=== PATIENT | male | born 1940 | race Caucasian/White ===

== ENCOUNTER 2019-10-28 10:18 | Emergency (ER) | payer MEDICARE, SELFPAY ==
--- NOTE | ~2019-10-28 | CT_ITS ---
EXAMINATION: 1. CT brain wo con, CT facial & cervical spine wo DATE: 10/28/2019 11:12 INDICATION: Fall with facial injuries TECHNIQUE: 1. Computed tomography (CT) of the head was performed without intravenous contrast. Sagittal and jone nal reconstructions were obtained. The mA was adjusted according to patient size. Iterative reconstru ction technique was employed. The dose-length product was 605 mGy-cm. 2. CT of the facial bones and maxillofacial region and cervical spine was performed without intraveno us contrast. Sagittal and coronal reconstructions were obtained. Automated exposure control and itera tive reconstruction technique were employed. The dose-length product was 328 mGy-cm. COMPARISON: None. FINDINGS: Head CT: Small left frontal scalp contusion. No calvarial fracture. No acute intracranial hemorrhage, acute in farction or abnormal extra axial fluid collection. Old lacunar infarcts at the right basal ganglia an d thalamus. Ventricles are normal and symmetric. No mass/mass effect. Maxillofacial CT: Fractures of the left and right nasal bones, mildly comminuted on the left with approximately 2 mm ri ghtward displacement on both the left and right. Soft tissue swelling about the bridge of the nose an d extending into the left preseptal soft tissues. The orbits are otherwise normal with intact appeari ng globes and no post septal inflammatory stranding. No other maxillofacial fractures identified. Mil d mucosal thickening at the bilateral ethmoid sinuses. Temporomandibular joints are normal alignment. Mastoid air cells and middle ear cavities are clear. Cervical spine: 1-2 mm anterolisthesis C7 on T1, T1 on T2 and T2 and T3. Vertebral body heights are normal. No fractu re. Mild disc height loss at C5-C6 through T2-T3. There are mild disc bulges resulting in mild centra l canal stenosis at multiple levels in the cervical spine. Multilevel moderate to severe bilateral ce rvical facet osteoarthritis with lower cervical and right-sided predominance resulting in multilevel mild neural foraminal stenosis. Cervical soft tissues are unremarkable. Visualized airway and apices of the lungs are clear. IMPRESSION: 1. 2 mm rightward displacement of right-sided an comminuted left-sided nasal bone fractures. 2. No calvarial fracture or acute intracranial process. 3. Small old lacunar infarcts at the right basal ganglia and thalamus. 4. Mild to moderate cervical spondylosis. No acute osseous abnormality. Reviewed, dictated and finalized at location B. IMPRESSION: 1. 2 mm rightward displacement of right-sided an comminuted left-sided nasal roxi ne fractures. 2. No calvarial fracture or acute intracranial process. 3. Small old lacunar infarcts at the right basal ganglia and thalamus. 4. Mild to moderate cervical spondylosis. No acute osseous abnormality.
[2019-10-28 10:27] VITALS: BP 163/81; PULSE 80; RESP 17; TEMP 36.9; O2SAT 99
--- NOTE | 2019-10-28 10:31 | ED.FALL ---
HPI - Fall General Chief Complaint: Fall Stated Complaint: FALL Time Seen by Provider: 10/28/19 10:25 Source: patient and EMS Mode of arrival: EMS Limitations: no limitations History of Present Illness HPI Narrative: 79 years old white female had a dental exam today, getting out of the office missed 1 mistake and fell forward, complaining of facial pain, denies loss of consciousness or neck pain. Patient also denies other injuries. Patient does not remember when the last time had a tetanus shot. Currently patient on aspirin. Related Data Home Medications Medication Instructions Recorded Confirmed amlodipine 5 mg PO BID 10/28/19 10/28/19 carvedilol 25 mg PO BID 10/28/19 10/28/19 glimepiride 2 mg PO DAILY 10/28/19 10/28/19 levothyroxine 100 mcg PO DAILY 10/28/19 10/28/19 pravastatin 20 mg PO DAILY 10/28/19 10/28/19 rivaroxaban [Xarelto] 20 mg PO DAILY 10/28/19 10/28/19 valsartan-hydrochlorothiazide 1 tablet PO DAILY 10/28/19 10/28/19 Allergies Allergy/AdvReac Type Severity Reaction Status Date / Time Sulfa (Sulfonamide Allergy Unknown Verified 10/28/19 10:37 Antibiotics) Review of Systems Review of Systems: Narrative: CONSTITUTIONAL: Denies fever, chills, or sweats. EYES: Denies visual changes, redness, or discharge. ENT: Denies rhinorrhea, congestion, sore throat, or otalgia. CARDIOVASCULAR: Denies chest pain, palpitations, or edema. RESPIRATORY: Denies cough or dyspnea. GASTROINTESTINAL: Denies abdominal pain, nausea, vomiting, or diarrhea. GENITOURINARY: Denies dysuria or hematuria. SKIN: Denies rash or itching. MUSCULOSKELETAL: Denies back pain, joint pain, or myalgia. NEUROLOGIC: Denies headache, numbness, or weakness. PSYCHIATRIC: Denies anxiety or depression. [facility] Past Medical History Medical History (Updated 10/28/19 @ 12:18 by Karina Curran MD) Hypertension Obesity Social History Social History (Updated 10/28/19 @ 10:44 by Karina Curran MD) Alcohol intake: never Gender identity (if verbalized by the patient): Female Exam Narrative: Exam Narrative: General appearance: Well-developed, well-nourished. C-collar on Skin: Normal color, facial contusion, and abrasion, Head: Normocephalic, nontraumatic Eyes: Clear conjunctiva ENT: Oropharynx normal, ears normal, nose normal Neck: Supple, nontender Chest and respiratory: Airway patent, no respiratory distress, no accessory muscle use Heart: Regular rate/rhythm Abdomen: Soft, nontender, no organomegaly, quiet bowel sounds Vascular: Normal peripheral pulses, normal capillary refill. Musculoskeletal: Normal range of motion, nontender back Neurologic: Alert and oriented ?3, DISTRIBUTION COLLECTION OPERATOR is normal as tested, no gross motor deficit Course Course Emergency Course: Improving Vital Signs Vital signs: Vital Signs Temperature 36.9 C 10/28/19 10:27 Pulse Rate 80 10/28/19 10:27 Respiratory Rate 17 10/28/19 10:27 Blood Pressure 163/81 H 10/28/19 10:27 Pulse Oximetry 99 10/28/19 10:27 Temperature 36.9 C 10/28/19 10:27 Pulse Rate 63 10/28/19 11:13 Respiratory Rate 18 10/28/19 11:13 Blood Pressure 179/71 H 10/28/19 11:13 Pulse Oximetry 100 10/28/19 11:13 MDM - Fall MDM Narrative Medical decision making narrative: Patient had a fall, facial contusion, no loss of consciousness, no neck pain, patient on aspirin, unknown tetanus shot. The plan to CT facial bones, tetanus shot. Further plan to follow Differential Diagnosis Differential diagnosis: Likely concussion without loss of consciousness Critical Care Time Critical Care Time Critical Care Time: No Discharge Plan Discharge Clinical Impression: Fall Qualifiers: Encounter type:
[2019-10-28 11:13] VITALS: BP 179/71; PULSE 63; RESP 18; O2SAT 100
[2019-10-28] MEDS: ACETAMINOPHEN 500 MG TABLET 1000 MG PO (11:15)
[2019-10-28] MEDS: IBUPROFEN 600 MG TABLET PO (11:15)
[2019-10-28] MEDS: TETANUS,DIPHTHERIA,AC PERTUSSIS ADULT (0.5 ML) BOOSTRIX IM (11:32)
[2019-10-28 13:09] VITALS: BP 151/65; PULSE 60; RESP 18; TEMP 36.3; O2SAT 97
== END 2019-10-28 13:10 | disposition home or self-care (01) ==
PROVIDERS: Emergency Provider Emergency Medicine; PCP Family Medicine
DX: S02.2XXA Fracture of nasal bones, initial encounter for closed fracture (principal); S00.03XA Contusion of scalp, initial encounter; I10 Essential (primary) hypertension; Z79.82 Long term (current) use of aspirin; Z79.01 Long term (current) use of anticoagulants; E66.9 Obesity, unspecified; Z68.34 Body mass index [BMI] 34.0-34.9, adult; Z23 Encounter for immunization; W10.9XXA Fall (on) (from) unspecified stairs and steps, initial encounter
CPT/HCPCS: 70450; 70486; 72125; 90471; 90715; 99284; A9270

== ENCOUNTER 2020-07-11 12:01 | Outpatient (CLI) | payer MEDICARE, SELFPAY ==
--- NOTE | ~2020-07-11 | XR_ITS ---
XR chest 2V DATE: 07/11/2020 12:20 INDICATION: Cough TECHNIQUE: PA and lateral views COMPARISON: 12/22/2007 PA and lateral views FINDINGS: Cardiomegaly. Aortic calcification and unfolding. Left-sided dual-lead pacemaker device with leads overlying right atrium and right ventricle. No hilar or mediastinal enlargement. Minimal atelectasis at the lung bases; otherwise no pulmonary infiltrate or consolidation, pleural ef fusion or pulmonary vascular congestion or pneumothorax is detected. Osteopenia. IMPRESSION: Cardiomegaly, aortic atherosclerosis Minimal atelectasis at the lung bases Reviewed, dictated and finalized at location B.
== END 2020-07-11 12:02 | disposition home or self-care (01) ==
PROVIDERS: PCP Family Medicine; Visit Provider Family Medicine
DX: R05 Cough (principal); I51.7 Cardiomegaly; I70.0 Atherosclerosis of aorta
CPT/HCPCS: 71046

== ENCOUNTER 2020-07-25 06:42 | Outpatient (RCR) | payer MEDICARE, SELFPAY ==
[2020-07-25] VITALS (9 sets, daily range): BP systolic 133–167; BP diastolic 53–67; PULSE 59–73; RESP 15–16; TEMP 36.2–36.9; O2SAT 96–100
[2020-07-25 07:42] LABS: Hematocrit 21.4 % (37.0-47.0)
[2020-07-25 07:46] LABS: Hemoglobin 5.8 g/dL (12.0-15.0)
[2020-07-25] MEDS: SODIUM CHLORIDE 0.9% IV 250 ML 30 ML IV CONT (09:15)
[2020-07-25] MEDS: FUROSEMIDE INJ 40 MG/4 ML VIAL 20 MG IV PUSH (11:34)
== END 2020-10-23 23:59 | disposition home or self-care (01) ==
LOC: ANHCPCTRAN 06:42
PROVIDERS: PCP Family Medicine; Visit Provider Family Medicine
DX: D64.9 Anemia, unspecified (principal)
CPT/HCPCS: 36415; 36430; 85014; 85018; 86850; 86900; 86901; 86920; 96374; J1940; J7050; P9016

== ENCOUNTER 2020-08-30 00:46 | Day surgery (SDC) | payer MEDICARE, SELFPAY ==
[2020-08-22 08:59] VITALS: BMI 35.1
[2020-08-30 08:17] VITALS: BP 178/74; PULSE 81; RESP 18; TEMP 36.2; O2SAT 99; BMI 35.6
[2020-08-30] MEDS: LACTATED RINGERS 1,000 ML 150 ML IV CONT (08:27)
[2020-08-30 08:30] LABS: Glucose Point of Care 110 mg/dl (65-105)
--- NOTE | 2020-08-30 08:56 | PM.HPGS ---
History of Present Illness History of Present Illness Consent: Risks, benefits, and alternatives have been discussed and questions answered. Patient agrees to proceed with procedure. Chief complaint: anemia due to GI blood loss Narrative: Carolina De Anda is a 80 year old female with been found to be anemic. Hemoglobin was 5.8. She has no gastrointestinal symptoms. She is chronically anticoagulated due to AFib Review of Systems Review of Systems: All systems reviewed & are unremarkable except as noted in HPI and below PMFSH Past Medical History Medical History A-fib Adequate anticoagulation on anticoagulant therapy Adult hypothyroidism Benign reactive hypertension Biventricular cardiac pacemaker in situ Hx of sick sinus syndrome Hypertension Mixed hyperlipidemia Obesity Osteoporosis Rheumatoid aortitis SSS (sick sinus syndrome) Type 2 diabetes mellitus with diabetic chronic kidney disease Surgical History Surgical History Status cardiac pacemaker Status post biventricular cardiac pacemaker insertion Family History Family History Mother Hypertension Patient's mother is in good health Social History Social History Social History: Smoking status: Never smoker Second hand tobacco smoke exposure: No Alcohol intake: never Alcohol use details: occassionally Substance use: never Substance use type: does not use Living arrangements: with family Gender identity (if verbalized by the patient): Female Spiritual care concerns: No Meds Home Medications and Allergies Home Medications Medication Instructions Recorded Confirmed Type glimepiride 2 mg PO DAILY 10/28/19 08/22/20 History pravastatin 20 mg PO DAILY 10/28/19 08/22/20 History rivaroxaban 20 mg tablet 20 mg PO DAILY #90 tablet 06/11/20 08/30/20 Rx amlodipine 5 mg tablet 5 mg PO DAILY #90 tablet 06/27/20 08/22/20 Rx carvedilol 25 mg tablet 25 mg PO BID #180 tablet 07/10/20 08/22/20 Rx levothyroxine 100 mcg tablet 100 mcg PO DAILY #90 tablet 07/10/20 08/22/20 Rx Allergies Allergy/AdvReac Type Severity Reaction Status Date / Time Sulfa (Sulfonamide Allergy Intermediate hives Verified 08/30/20 08:16 Antibiotics) colesevelam Allergy Mild hives Verified 08/30/20 08:16 Mygjeru-Gsk-Yqj Reductase Allergy Mild hives Verified 08/30/20 08:16 Inhibitor atorvastatin Allergy Unknown coughing Verified 08/30/20 08:16 codeine Allergy Unknown nausea and Verified 08/30/20 08:16 vomiting Vital Signs Vital Signs - 24 hr 08/30/20 08:17 Temperature 36.2 C L Pulse Rate 81 Respiratory Rate 18 Blood Pressure 178/74 H Pulse Oximetry 99 Exam Const: General: alert Orientation/consciousness: patient oriented x3 Resp: Auscultation: clear to auscultation bilaterally Cardio: Rhythm: regular rhythm GI: GI Palp: Yes Soft to palpation and No Tenderness to palpation present (GI) Neuro: General: patient oriented x3 Assessment and Plan Assessment and plan (1) Anemia: Code(s): D64.9 - Anemia, unspecified Status: Acute Assessment and Plan: EGD with possible biopsy or dilatation or cautery.Colonoscopy with possible biopsy or polypectomy or cautery or injection of substances.
--- NOTE | 2020-08-30 09:02 | WPDANESEPPF ---
Anes - Initial Pre Proc Eval Procedure: Operation Date: 08/30/20 09:30 Proposed Procedures p Esophagogastroduodenoscopy & Colonoscopy - Billy Vasquez MD Date/Time: 08/30/20 09:02 Surgeon: Billy Vasquez MD Pre Op Diagnosis: anemia due to GI blood loss Patient Data Age: 80 Gender: F Height: 1.63 m Weight: 94.2 kg Last Vital Signs Temp 97.2 F L 08/30/20 08:17 Pulse 81 08/30/20 08:17 Resp 18 08/30/20 08:17 BP 178/74 H 08/30/20 08:17 Pulse Ox 99 08/30/20 08:17 Allergies Allergy/AdvReac Type Severity Reaction Status Date / Time Sulfa (Sulfonamide Allergy Intermediate hives Verified 08/30/20 08:16 Antibiotics) colesevelam Allergy Mild hives Verified 08/30/20 08:16 Fqcqxnr-Gvo-Knj Reductase Allergy Mild hives Verified 08/30/20 08:16 Inhibitor atorvastatin Allergy Unknown coughing Verified 08/30/20 08:16 codeine Allergy Unknown nausea and Verified 08/30/20 08:16 vomiting Home Medications Medication Instructions Recorded Confirmed Type glimepiride 2 mg PO DAILY 10/28/19 08/22/20 History pravastatin 20 mg PO DAILY 10/28/19 08/22/20 History rivaroxaban 20 mg tablet 20 mg PO DAILY #90 tablet 06/11/20 08/30/20 Rx amlodipine 5 mg tablet 5 mg PO DAILY #90 tablet 06/27/20 08/22/20 Rx carvedilol 25 mg tablet 25 mg PO BID #180 tablet 07/10/20 08/22/20 Rx levothyroxine 100 mcg tablet 100 mcg PO DAILY #90 tablet 07/10/20 08/22/20 Rx Laboratory Tests 08/30/20 08:23 POC Capillary Glucose 110 mg/dl H mg/dl (65-105) Patient hx anesthesia problems: none Family hx anesthesia problems: none PMFSH Past Medical History Medical History A-fib Adequate anticoagulation on anticoagulant therapy Adult hypothyroidism Benign reactive hypertension Biventricular cardiac pacemaker in situ Hx of sick sinus syndrome Hypertension Mixed hyperlipidemia Obesity Osteoporosis Rheumatoid aortitis SSS (sick sinus syndrome) Type 2 diabetes mellitus with diabetic chronic kidney disease Surgical History Surgical History Status cardiac pacemaker Status post biventricular cardiac pacemaker insertion Family History Family History Mother Hypertension Patient's mother is in good health Social History Social History Social History: Smoking status: Never smoker Second hand tobacco smoke exposure: No Alcohol intake: never Alcohol use details: occassionally Substance use: never Substance use type: does not use Living arrangements: with family Gender identity (if verbalized by the patient): Female Spiritual care concerns: No Anes - Eval Final PreProcedure Day of Procedure 08/30/20 09:02 Patient weight: obese Heart: regular rate and rhythm Lungs: clear to auscultation Airway: Mallampati scale class III Neurological: alert and oriented Last oral intake: >/= 8 hours ASA classification: III Emergent: no Anesthetic plan: proceed Anesthesia type and monitoring: general GIVS and standard monitoring Informed Consent: The patient's anesthetic plan and its attendant risks and benefits were discussed with the patient/family/POA. Questions were solicited and answers provided to the satisfaction of the patient/family/POA.
[2020-08-30] MEDS: BENZOCAINE (*SP) 60 ML SPRAY CAN (HURRICAINE) 1 SPRAY MUCOUS MEM (09:38)
[2020-08-30 10:07] VITALS: BP 153/51; PULSE 65; RESP 21; O2SAT 94
[2020-08-30 10:17] VITALS: BP 141/56; PULSE 64; RESP 22; O2SAT 97
[2020-08-30 10:19] LABS: Glucose Point of Care 105 mg/dl (65-105)
[2020-08-30 10:27] VITALS: BP 137/66; PULSE 65; RESP 22; O2SAT 99
== END 2020-08-30 10:47 | disposition home or self-care (01) ==
PROVIDERS: PCP Family Medicine; Visit Provider Internal Medicine Gastroenterology
PROC: 0DJ08ZZ Inspection of Upper Intestinal Tract, Via Natural or Artificial Opening Endoscopic (ICD-10-PCS; CPT 43235; principal; 2020-08-30 09:30)
DX: D50.9 Iron deficiency anemia, unspecified (principal); K57.30 Diverticulosis of large intestine without perforation or abscess without bleeding; K44.9 Diaphragmatic hernia without obstruction or gangrene; K29.70 Gastritis, unspecified, without bleeding; I48.91 Unspecified atrial fibrillation; E03.9 Hypothyroidism, unspecified; Z95.0 Presence of cardiac pacemaker; E78.2 Mixed hyperlipidemia; M81.0 Age-related osteoporosis without current pathological fracture; M06.9 Rheumatoid arthritis, unspecified; I12.9 Hypertensive chronic kidney disease with stage 1 through stage 4 chronic kidney disease, or unspecified chronic kidney disease; E11.22 Type 2 diabetes mellitus with diabetic chronic kidney disease; N18.9 Chronic kidney disease, unspecified; E66.9 Obesity, unspecified; Z68.35 Body mass index [BMI] 35.0-35.9, adult; Z79.01 Long term (current) use of anticoagulants; Z79.84 Long term (current) use of oral hypoglycemic drugs
CPT/HCPCS: 45378; 43239; 82948; 87081; 88305; J2704; J7120

== ENCOUNTER 2023-05-09 15:50 | Inpatient (IN) | payer MEDICARE, SELFPAY ==
[2023-05-09] VITALS (25 sets, daily range): BP systolic 127–175; BP diastolic 43–97; PULSE 60–78; RESP 18–36; TEMP 36.4–37.2; O2SAT 93–100; BMI 34.7
--- NOTE | ~2023-05-09 | CT_ITS ---
EXAMINATION: CT abdomen pelvis wo/w con DATE: 05/09/2023 18:32 INDICATION: Gross hematuria TECHNIQUE: Computed tomography (CT) of the abdomen and pelvis was performed without and with 130 cc O mnipaque 350 intravenous contrast. The dose-length product was 2408.64 mGy-cm. Automated exposure con trol and iterative reconstruction technique were employed. COMPARISON: None. FINDINGS: There is an infiltrative left renal mass centered in the lower pole measuring 7.8 x 7.7 x 7 .2 cm, consistent with renal cell carcinoma until proven otherwise. There are low-density lesions in the right kidney, most likely benign cysts. There is cortical scarring of the kidneys bilaterally. Th ere is high density material dependently in the bladder on precontrast images, likely blood products. Tan catheter present. There is nondependent gas in the bladder lumen, consistent with instrumentat ion. Status post cholecystectomy with expected prominence of the bile ducts. The spleen, pancreas, adrenal glands are unremarkable. Nonobstructive bowel gas pattern. Colonic diverticulosis without evidence f or diverticulitis. Patchy groundglass opacities of the lower lungs may represent atelectasis or pneum onia. Severe lower thoracic and lumbar spondylosis. No focal lytic or blastic lesions. There is ather osclerosis of the aorta without aneurysm. No lymphadenopathy. IMPRESSION: 1. Complex 7.8 cm left renal mass, consistent with renal cell carcinoma until proven otherwise. 2: High density material in the bladder lumen precontrast, consistent with blood products. 3: Patchy groundglass opacities in the lower lungs which may reflect atelectasis or pneumonia. Reviewed, dictated and finalized at location A. IMPRESSION: 1. Complex 7.8 cm left renal mass, consistent with renal cell carcinoma until p roven otherwise. 2: High density material in the bladder lumen precontrast, consistent with bloo d products. 3: Patchy groundglass opacities in the lower lungs which may reflect atelectas is or pneumonia.
--- NOTE | ~2023-05-09 | XR_ITS ---
EXAMINATION: XR chest 2V DATE: 05/09/2023 16:44 INDICATION: Weakness TECHNIQUE: PA and lateral views of the chest were obtained. COMPARISON: Chest radiograph dated 07/11/2020 FINDINGS: Cardiomegaly with pulmonary vascular congestion and increased perihilar interstitial pattern suggesti ve of congestive heart failure with mild pulmonary edema. Unchanged mild linear discoid atelectasis/s carring at the left lung base. No pleural effusion or pneumothorax. Dual lead pacemaker seen with villa ds projecting over the expected locations of the right atrium and right ventricle. Mild thoracic kyph osis with chronic minimal to mild anterior wedging of a few mid to lower thoracic vertebral bodies. M oderate thoracic spondylosis. IMPRESSION: 1. Likely congestive heart failure with cardiomegaly, pulmonary vascular congestion and mild perihila r edema. Reviewed, dictated and finalized at location B. IMPRESSION: 1. Likely congestive heart failure with cardiomegaly, pulmonary vascular conges tion and mild perihilar edema.
--- NOTE | ~2023-05-09 | CT_ITS ---
EXAMINATION: CT diagnostic chest wo con DATE: 05/11/2023 17:05 INDICATION: BLE swelling, metastassi rule out TECHNIQUE: Computed tomography (CT) of the chest was performed with 100 mL Omnipaque-350 intravenous contrast. Automated exposure control and iterative reconstruction technique were employed. The dose-l ength product was 391.71 mGy-cm. COMPARISON: None. FINDINGS: CHEST: Thoracic aorta: No significant dilation. Mild arch calcification. Lung parenchyma and airways: Bibasilar scar and dependent atelectasis. Patent airways. Right lower lo be pneumatocele. Scattered calcified granulomas. Thoracic inlet, axillae and chest wall: No thyroid or soft tissue mass. No axillary lymphadenopathy. Left chest pacer, leads in good position. Mediastinum: No lymphadenopathy. Dilated central pulmonary veins as can be seen with pulmonary arteri al hypertension. Small hiatal hernia. Heart and pericardium: Cardiomegaly. Aortic valve calcification. No pericardial effusion. Coronary artery calcifications: Absent. Pleura: No effusion or mass. Upper abdomen: No significant finding. Thoracic bones: No acute osseous finding in the chest. IMPRESSION: No acute thoracic process detected. No CT evidence of metastatic disease in the chest. Reviewed, dictated and finalized at location K.
--- NOTE | 2023-05-09 15:57 | ECG_ITS ---
Measurements Intervals [place] Rate: 66 P: 140 AK: 182 QRS: 0 QRSD: 106 T: 34 QT: 404 QTc: 424 Interpretive Statements ELECTRONIC ATRIAL PACEMAKER LEFT VENTRICULAR HYPERTROPHY WITH ST-T CHANGE MINIMAL Q WAVES- HIGH LATERAL LEADS CANNOT RULE OUT SEPTAL INFARCT, AGE INDETERMINATE BASELINE ARTIFACT- I, II, III, AVR, AVL, AVF, V2, V4-V6 ABNORMAL ECG NO PREVIOUS ECG AVAILABLE FOR COMPARISON Electronically Signed On 05-09-2023 16:40:41 CDT by Ambrosio Villarreal D.O.
[2023-05-09 16:56] LABS: Basophils Percent Auto 0.4 % (0.2-1.2); Eosinophils Absolute Auto 0.1 K/mm3 (0-0.3); Eosinophils Percent Auto 0.7 % (0-4.4); Hematocrit 49.3 % (37.0-47.0); Hemoglobin 14.2 g/dL (12.0-15.0); Immature Granulocyte Absolute 0.03 K/mm3 (0.00-0.031); Immature Granulocyte Percent A 0.4 % (0-0.5); Lymphocytes Absolute Auto 0.48 K/mm3 (0.9-3.2); Lymphocytes Percent Auto 5.8 % (18.3-44.2); Mean Corpuscular HGB Conc 28.8 g/dl (32-36); Mean Platelet Volume 9.8 fl (7.4-10.4); Monocytes Percent Auto 0.4 % (2.6-8.5); Neutrophils Absolute Auto 7.7 K/mm3 (1.3-6.7); Neutrophils Percent Auto 92.3 % (45.5-73.1); Platelet Count Result 240 k/mm3 (150-375); Red Blood Count 5.08 M/mm3 (4.2-5.4); Red Cell Distribution Width 14.7 % (11.5-14.5); White Blood Count 8.3 K/mm3 (4.5-10.0)
--- NOTE | 2023-05-09 16:57 | ED.WEAKNESS ---
HPI - Weakness General Chief complaint: Weakness Stated complaint: weakness, chills Time Seen by Provider: 05/09/23 15:58 History of Present Illness HPI Narrative: Patient states she woke up today and felt very tired with lack of energy, she has no nausea or vomiting or abdominal pain, has been having some chills, minimal shortness of breath. Related Data Allergies Allergy/AdvReac Type Severity Reaction Status Date / Time Sulfa (Sulfonamide Allergy Intermediate hives Verified 02/07/23 08:52 Antibiotics) colesevelam Allergy Mild hives Verified 02/07/23 08:52 Hqjcnvm-XBJ-KnE Reductase Allergy Mild hives Verified 02/07/23 08:52 Inhibitor [Qhttctd-Ihh-Wko Reductase Inhibitor] atorvastatin Allergy Unknown coughing Verified 02/07/23 08:52 codeine Allergy Unknown nausea and Verified 02/07/23 08:52 vomiting Review of Systems Review of Systems: CONST: fatigue HEENT: No sore throat C/V: No chest pain RESP: No cough GI: No abdominal pain, nausea, vomiting[, diarrhea] : No dysuria. M/S: lower extremity swelling SKIN: No rash. NEURO: [No focal numbness or weakness] PSYCH: [No depression] [facility] Past Medical History Medical History (Updated 05/09/23 @ 20:57 by Samra Bergeron MD) A-fib Adequate anticoagulation on anticoagulant therapy Adult BMI 36.0-36.9 kg/sq m Adult hypothyroidism Anemia Benign reactive hypertension Biventricular cardiac pacemaker in situ Cough Hx of sick sinus syndrome Hypertension Mixed hyperlipidemia Obesity Osteoporosis Osteoporosis SSS (sick sinus syndrome) SSS (sick sinus syndrome) Transfusion history Trochanteric bursitis Type 2 diabetes mellitus with diabetic chronic kidney disease Surgical History Surgical History Status cardiac pacemaker Status post biventricular cardiac pacemaker insertion Family History Family History Mother Hypertension Patient's mother is in good health Social History Social History (Updated 02/07/23 @ 08:53 by Summer Nicholas) Social History: Smoking status: Never smoker Second hand tobacco smoke exposure: No Alcohol intake: current Alcohol use details: occassionally Substance use: never Substance use type: does not use Do You Feel Safe in your Home?: Yes Lack of Transportation: No Lack of Food: Never True Current Housing: I Have Housing Concerned About Future Housing: No Difficulty Paying Gas/Electric Bills: No Difficulty Paying for Meds: No Currently Unemployed: YES Education: Decline to Answer Difficulty w/ Childcare or Family Care: No Living arrangements: with family Occupation/Education: retired Gender identity (if verbalized by the patient): Female Sexual Orientation (if Verbalized by the Patient): Straight or Heterosexual Spiritual care concerns: No Exam Narrative: EXAMINATION OF ORGAN SYSTEMS/BODY AREAS: Constitutional: Vital signs per nursing GENERAL:[No acute distress, non-toxic appearing.] HEAD: Normal with no signs of head trauma. EYES: EOMI, conjunctiva normal ENT: Hearing grossly intact LUNGS: Nonlabored breathing. HEART: [Regular rate and rhythm] ABD: [Soft], [nontender to palpation] EXT: bilateral lower extremity swelling with pitting edema SKIN: [No rashes or lesions.] NEURO: [Alert and oriented x 3. No gross focal sensory or strength deficits.] PSYCH: Normal affect Course Vital Signs Vital signs: Vital Signs Temperature 99 F 05/09/23 15:58 Pulse Rate 61 05/09/23 15:58 Respiratory Rate 20 05/09/23 15:58 Blood Pressure 175/48 H 05/09/23 15:58 Pulse Oximetry 93 05/09/23 15:58 Oxygen Delivery Room Air 05/09/23 15:58 Temperature 99 F 05/09/23 15:58 Pulse Rate 63 05/09/23 20:08 Respiratory Rate 36 H 05/09/23 19:47 Blood Pressure 162/97 H 05/09/23 19:32 Pulse Oximetry 99 05/09/23 19:47
[2023-05-09 17:10] LABS: Platelet Estimate Adequate (Adequate)
[2023-05-09 17:11] LABS: Anisocytosis 1+; Atypical Lymphocytes Present; Hypochromasia 1+; Ovalocytes 1+; Schistocytes None Seen
[2023-05-09 17:52] LABS: Color Urine Red (Yellow)
[2023-05-09 17:53] LABS: Appearance Urine Turbid (Clear); pH Urine 6.5 (5.0-9.0)
[2023-05-09 17:54] LABS: Glucose Urine UA Negative (Negative)
[2023-05-09 17:55] LABS: Blood Urine 3+ (Negative); Ketones Urine Negative (Negative)
[2023-05-09] MEDS: FUROSEMIDE INJ 40 MG/4 ML VIAL IV PUSH ×2 (17:55→19:23)
[2023-05-09 17:56] LABS: Leukocyte Esterase Ur Negative LEU/UL (Negative)
[2023-05-09 17:57] LABS: Add Urine Microscopic? YES; Protein Urine 3+ mg/dL (Negative); RBC Urine >100 /hpf (0-2); Squamous Epithelial Cell Urine None seen /hpf (Few)
[2023-05-09 17:58] LABS: Bacteria Urine Trace /hpf
[2023-05-09 18:14] LABS: Estimated CRCL calculation 34 ml/min; Estimated Glomerular Filt Rate 39
[2023-05-09 18:54] LABS: Alanine Aminotransferase 9 U/L (6-35); Albumin Level 4.1 g/dL (3.5-5.1); Alkaline Phosphatase 88 U/L (38-126); Anion Gap 6 mmol/L (8-16); Aspartate Amino Transferase 24 U/L (14-36); Bilirubin,Total 0.7 mg/dL (0.2-1.3); Blood Urea Nitrogen 26 mg/dL (7-17); Calcium 9.7 mg/dL (8.4-10.2); Carbon Dioxide 25 mmol/L (22-30); Chloride 109 mmol/L (98-107); Estimated CRCL calculation 40 ml/min; Estimated Glomerular Filt Rate 48; Glucose 83 mg/dL (65-110); Potassium 3.9 mmol/L (3.4-5.0); Sodium 140 mmol/L (137-145)
[2023-05-09 19:07] LABS: NT Pro B Type Natriuretic Pept 645 pg/mL (19.9-100)
[2023-05-09] MEDS: ALBUTEROL SULFATE NEB 2.5 MG/3 ML INH 15 MG INHALATION (19:30)
[2023-05-09] MEDS: IPRATROPIUM BR 0.02% INH SOLN 0.5 MG/2.5 ML VIAL 1 MG INHALATION (19:30)
--- NOTE | 2023-05-09 19:30 | PC.NURSE ---
Assumed care of pt. Claire RN gave bedside report. States pt suddenly became tachypnic and c/o sob after coming back from CT scan. RR 30-40s. CBI not draining at this time. Pt placed on 3L for sats 72%. Sats increased to 99%. Pt now tachypnic 30, but states feels better. Dr Calzada notified and to bedside. Pt's CBI irrigated and now flowing.
--- NOTE | 2023-05-09 19:45 | PC.NURSE ---
Pt now tachypnic 27. Improved from before. Lasix repeated per ERP. RT notified to give hour long neb. Pt appears more comfortable at this time.
--- NOTE | 2023-05-09 20:01 | PM.IMHP ---
H&P: HPI History of Present Illness Date/Time: 05/09/23 20:01 Chief Complaint: Increased weakness Narrative: Source of information from limited past medical records and the patient's 's report. The patient's and the patient herself for poor historians. The states that his does not share her medical issues with him and currently the patient is only oriented to person and place. 82-year-old female with a past medical history of restrictive lung disease, rheumatoid arthritis, sick sinus syndrome status post dual chamber pacemaker, essential hypertension, CHF, chronic anticoagulation, type 2 diabetes mellitus and CVA who presented to the ER via private vehicle due to increased weakness. The patient's states the patient was significantly more weak today and did not seem herself. He felt that she was confused which was a new change for her. He stated she did not want to come to the hospital and he had a convince her to come. He called EMS who evaluated the patient and told him that he could bring her in via private vehicle or they could take her by ambulance in the opted to go by private vehicle. The patient reported having some chills to the ER provider. She seemed tachypneic and when question the patient admitted she could may be slightly short of breath. After she was laid down to have her CT scan of the abdomen and pelvis patient became acutely decompensated and was tachypneic with respiratory rate between 30 and 40 and significantly hypoxic. The patient's reports that the patient has been sleeping in a recliner for the last several months. CT was performed due to patient having gross hematuria noted when nursing staff straight catheterization the patient. CT demonstrated complex 7.8 cm left renal mass consistent with renal cell carcinoma and high-density material in the bladder consistent with blood products as well as ground-glass opacities in lower lungs with chest x-ray also demonstrating cardiomegaly with likely pulmonary edema. In the ER patient received 2 doses of IV Lasix 40 mg and a nebulizer treatment. Patient's respiratory status did not seem to improve after respiratory treatment. Initially in the ER patient was markedly hypertensive but improved after diuretic therapy. After diuretic therapy the patient was able to be weaned down to room air. Patient was prescribed Lasix by her primary care provider but admitted to nursing staff that she had not been taking the Lasix. She is on chronic anticoagulation with Xarelto. Review of Systems Review of Systems: ROS unobtainable: Yes unobtainable due to mental status [facility] Past Medical History Medical History (Updated 05/10/23 @ 05:02 by Sabi Lamb DO) Adult hypothyroidism Anemia Benign reactive hypertension CKD (chronic kidney disease) stage 3, GFR 30-59 ml/min Hypertension Mixed hyperlipidemia Obesity Osteoporosis Paroxysmal atrial fibrillation Restrictive lung disease Mild restrictive lung disease noted on PFTs 2009 Rheumatoid arthritis SSS (sick sinus syndrome) Transfusion history Trochanteric bursitis Type 2 diabetes mellitus with diabetic chronic kidney disease Vitamin D deficiency Surgical History Surgical History (Updated 05/10/23 @ 02:30 by Sabi Lamb DO) Biventricular cardiac pacemaker in situ (2007) With generator exchange in 2018 Status post biventricular cardiac pacemaker insertion Family History Family History Mother Hypertension Heart problem Father Unknown family medical history Sibling Myocardial infarct Sibling Unknown family medical history Social History Social History (Updated 05/10/23 @ 04:59 by Sabi Lamb DO) Social History: Patient lives with her of almost 60 years. Her reports that they raised 2 children. She is a lifelong nonsmoker and only on rare occasion she will have a glass of wine. She does
[2023-05-09 20:32] LABS: Alveolar/Arterial O2 Gradient 285.5 mmHg; Fractional Inspired Oxygen 60 %; HCO3 ABG 22.2 mEq/l (22.0-26.0); Oxygen Content ABG 18.8 %vol (16.0-22.0); Oxygen Saturation ABG 97.7 % (95.0-100.0); Oxyhemoglobin 96.5 % THb (90.0-100.0); PCO2 ABG 36.4 mmHg (35.0-45.0); PO2 ABG 102.3 mmHg (80.0-100.0); PO2 FiO2 Ratio Arterial Blood 1.71 %; Total Hemoglobin 13.8 g/dL (12.0-18.0); pH ABG 7.404 (7.350-7.450)
[2023-05-09 20:33] LABS: Modified Allen's Test Pass; Site Drawn RIGHT RADIAL
[2023-05-09 20:34] LABS: Device OTHER DEVICE
[2023-05-09 20:45] LABS: Influenza A QL RT-PCR Negative (Negative); Influenza B QL RT-PCR Negative (Negative); RSV RNA, RT-PCR Negative (Negative); SARS-CoV-2 RNA PCR Negative (Negative)
[2023-05-09] MEDS: AZITHROMYCIN 500 MG/NS 250 ML 500 MG/250 ML BAG 250 MG IVPB (21:14)
--- NOTE | 2023-05-09 21:46 | PC.NURSE ---
Pt appears much more comforable at this time. Resp 25, occasionally sleeping, but arousable to voice. remains at bedside.
--- NOTE | 2023-05-09 23:13 | ADMGEN ---
This patient, Carolina De Anda, was admitted to IMU Room 212-01 on 05/09/23 at 2250. Patient/family oriented to hospital policies and general routines including ID bracelet, bed and alarms, visiting hours, pain management, procedures, bathroom and other care routines, personal items, smoking policy, room service/diet, and visiting hours. Information on how to activate the Rapid Response Team has been discussed. Patient/Family are encouraged to report perceived risks to care and to ask questions if they do not understand what they are told or what they should do.
[2023-05-09 23:24] LABS: MRSA (PCR) NOT DETECTED (NOT DETECTE)
[2023-05-10] VITALS (24 sets, daily range): BP systolic 115–149; BP diastolic 44–67; PULSE 60–102; RESP 18–22; TEMP 36.2–36.8; O2SAT 94–98
--- NOTE | 2023-05-10 | ECHO_ITS ---
Patient Info Name: Carolina De Anda Age: 82 years : 1940 Gender: Female Ht: 65 in Wt: 208 lbs BSA: 2.12 m2 HR: 62 bpm BP: 149 / 50 mmHg Heart Rhythm: Paced Technical Quality: Good Exam Date: 05/10/2023 8:40 AM Exam Location: Echo Lab Patient Status: Outpatient Admit Date: 05/09/2023 Staff Ordering Physician: Sabi Lamb DO Reverse Engineer: Chan Daily RDCS Attending Provider: Sabi Lamb DO Referring Physician: Adonis BROUSSARD; Exam Type: CA echo doppler color flow Study Info Indications - ACUTE REPIRATORY FAILURE Complete two-dimensional, color flow and Doppler transthoracic echocardiogram is performed. Summary 1. Complete two-dimensional, color flow and Doppler transthoracic echocardiogram is performed. 2. Left ventricular hypertrophy with normal size and normal systolic function. 3. Grade 1 diastolic noncompliance. 4. Dilated left atrium. 5. Pacemaker leads identified. 6. No significant valvular dysfunction. Left Ventricle Left ventricular chamber dimension is normal. Left ventricular systolic function is normal, estimated at 60-65%. There is mild concentric increased left ventricular wall thickness. The left ventricular diastolic function is grade I diastolic dysfunction. Right Ventricle Right ventricular chamber dimension is normal. Linear artifact in right ventricle suggestive of catheter(s), pacemaker lead(s), or ICD lead(s). Left Atria Left atrial chamber dimension is mildly enlarged. Right Atria Right atrial chamber dimension is normal. Linear artifact in the right atrium suggestive of catheter(s), pacemaker lead(s), or ICD lead(s). Aortic Valve The aortic valve is trileaflet. There is mild aortic valve sclerosis. Pulmonic Valve The pulmonic valve is not well visualized. Mitral Valve The mitral valve has normal leaflets. The mitral valve annulus is mildly calcified. Tricuspid Valve The tricuspid valve leaflets are normal. Pericardium/Pleural The pericardium appears normal. Aorta The aortic root size at the sinus of Valsalva is normal. Left Ventricular Outflow Tract Name Value Normal LVOT 2D LVOT Diameter 2.1 cm LVOT Doppler LVOT Peak Gradient 8 mmHg LVOT Mean Gradient 5 mmHg LVOT VTI 33 cm LVOT VTI/AV VTI Ratio 0.7 LVOT Stroke Volume 117 ml LVOT CO 6.5 l/min LVOT CI 3.1 l/min/m2 Pulmonic Valve Name Value Normal RVOT Doppler RVOT Peak Gradient 1 mmHg PV Doppler PV Peak Gradient 7 mmHg Mitral Valve Name Value Normal
[2023-05-10 03:17] LABS: Troponin I 0.068 ng/mL (0.000-0.034)
[2023-05-10 05:17] LABS: Hematocrit 41.4 % (37.0-47.0); Hemoglobin 12.7 g/dL (12.0-15.0); Mean Corpuscular HGB Conc 30.7 g/dl (32-36); Mean Corpuscular Hemoglobin 28.3 pg (26-34); Mean Corpuscular Volume 92.2 fl (80-100); Platelet Count Result 202 k/mm3 (150-375); Red Blood Count 4.49 M/mm3 (4.2-5.4); Red Cell Distribution Width 14.8 % (11.5-14.5); White Blood Count 34.6 K/mm3 (4.5-10.0)
[2023-05-10 05:24] LABS: Prothrombin Time 24.1 Seconds (11.1-14.7)
[2023-05-10 05:25] LABS: Anion Gap 11 mmol/L (8-16); Blood Urea Nitrogen 27 mg/dL (7-17); Calcium 8.9 mg/dL (8.4-10.2); Carbon Dioxide 22 mmol/L (22-30); Chloride 106 mmol/L (98-107); Estimated CRCL calculation 29 ml/min; Estimated Glomerular Filt Rate 31; Glucose 104 mg/dL (65-110); Partial Thromboplastin Time 38.9 Seconds (22.3-36.8); Potassium 3.1 mmol/L (3.4-5.0); Sodium 139 mmol/L (137-145)
[2023-05-10 05:37] LABS: Troponin I 0.071 ng/mL (0.000-0.034)
[2023-05-10 05:53] LABS: Band Neutrophils Percent 9 % (0-6); Lymphocytes Absolute Manual 0.69 K/mm3 (1.1-4.5); Monocytes Absolute Manual 0.69 K/mm3 (0.1-0.90); Monocytes Percent Manual 2 % (3-9); Neutrophils Absolute Manual 33.21 K/mm3 (1.7-7.2); Neutrophils Percent Manual 87 % (46-73); Platelet Estimate Slightly Decreased (Adequate); Total Cells Counted 100
[2023-05-10 05:54] LABS: Schistocytes None Seen
[2023-05-10] MEDS: LEVOTHYROXINE SODIUM 100 MCG TABLET PO (06:25)
[2023-05-10 07:52] LABS: Glucose Point of Care 102 mg/dl (65-105)
[2023-05-10 08:53] LABS: Troponin I 0.079 ng/mL (0.000-0.034)
[2023-05-10] MEDS: FUROSEMIDE INJ 40 MG/4 ML VIAL IV PUSH (09:41)
[2023-05-10] MEDS: PRAVASTATIN SODIUM 20 MG TABLET PO (09:41)
[2023-05-10] MEDS: carvediloL 25 MG TABLET PO ×2 (09:41→20:30)
[2023-05-10] MEDS: amLODIPine BESYLATE 5 MG TABLET PO (09:42)
--- NOTE | 2023-05-10 10:38 | PM.CNCAR ---
Assessment and Plan Assessment and plan (1) Elevated troponin: Code(s): R79.89 - Other specified abnormal findings of blood chemistry Status: Acute (2) Status cardiac pacemaker: Code(s): Z95.0 - Presence of cardiac pacemaker Status: Acute Plan This is an 82-year-old lady with a longstanding history of sick sinus syndrome who has a chronically implanted dual-chamber pacemaker which appears to be functioning well it, it has not been checked in about a year and half as she has been failing follow-up in the office. She is nonetheless hospitalized now with generalized weakness she does have some hypoxemia and chest x-ray evidence of some a pulmonary congestion. She has no previous history of heart failure. 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 Obviously Xarelto need to be stopped and that is appropriate. I will review her echocardiogram after that is done today. For the time being furosemide is appropriate for her pulmonary congestion that is noted on her chest x-ray. Despite all of this she is really not reporting shortnes of breath as 1 of her chief complaint. Will follow with you and obviously she may be requiring significant surgery after the urology consult takes place Jeferson Spivey MD [facility] History of Present Illness History of Present Illness Consult date/time: 05/10/23 10:38 Reason For Visit: renal cell; hematuria, AMS; CHF exac. Narrative: This is a 82-year-old woman who I know with a history of sick sinus syndrome with the chronically implanted pacemaker 0 I am seeing at the request of the hospitalist today. The reason for consult request is elevated troponin. She is not known to have coronary artery disease and came to this hospital yesterday being brought in by her /family because of significant generalized weakness. She also has been having some gross hematuria and it is unclear from talking to her how long it has been going on she has a very hard time providing a any historical details about any of this. She was not reporting any symptoms of chest pain shortness of breath orthopnea or PND. She was hypoxemic on arrival in the emergency room was placed on some oxygen. Her chest x-ray was interpreted as showing findings suspicious for CHF and she was given some IV furosemide. Her says she looks and feels better today. In the emergency department apparently because of some abdominal discomfort she had a CT done which demonstrated a fairly large complex 7 cm left renal mass that is consistent with in appearance with a hypernephroma. Urology consult has been placed and is pending. She has continuous bladder irrigation going on now. Cardiac lambert again this lady has a history of symptomatic bradycardia with sick sinus syndrome for that she follows in my office since 2007. She received a [employer] dual-chamber pacemaker at that time. She received a generator change as the battery was at end of service back in 2018. About a year and a half ago she failed follow-up with me in the office and has been not seen since then. Her pacemaker has not been checked since then either. On telemetry it appears to be functioning normally as she is an in an atrially paced rhythm. Review of Systems Constitutional: Constitutional: Reports lethargy Eyes: Eyes: Reports no additional eye complaints ENT: Reports system reviewed and no additional complaints, except as documented Cardiovascular: Cardiovascular: Reports no additional cardiovascular complaints Respiratory: Respiratory: Reports no additional respiratory complaints Gastrointestinal: Gastrointestinal: Reports abdominal pain Genitourinary: Genitourinary: Reports hematuria Musculoskeletal: Musculoskeletal: Reports no additional musculoskeletal complaints Integumentary/Breasts: Skin/Breast: Reports system reviewed and no additional complaints, except as docu Neurologic: Reports s
--- NOTE | 2023-05-10 11:42 | P.PNIM_ITS ---
Progress Note: A&P Assessment and Plan (1) Gross hematuria: Code(s): R31.0 - Gross hematuria Status: Acute Assessment and Plan: patient found to have gross hematuria. Patient has known about this but is unsure about how long this has been going on. * Patient placed on CBI. * Urology consulted * Xarelto on hold. * Suspected cause of it being the 8 cm left renal mass. (2) Renal cell carcinoma: Qualifiers: Laterality: left Qualified Code(s): C64.2 - Malignant neoplasm of left kidney, except renal pelvis Code(s): C64.9 - Malignant neoplasm of unspecified kidney, except renal pelvis Status: Acute Assessment and Plan: patient found to have a 8 cm renal mass on the left kidney on CT abdomen pelvis. No metastases noted on CT of the abdomen. * Urology recommending follow-up chest CT to evaluate for metastases. * Urology discussed options, outcomes and what to expect with the patient. * Plan to follow-up with Dr. Palmer an outpatient. (3) Acute exacerbation of congestive heart failure: Qualifiers: Heart failure type: unspecified Qualified Code(s): I50.9 - Heart failure, unspecified Code(s): I50.9 - Heart failure, unspecified Status: Acute Assessment and Plan: Patient has acute hypoxic respiratory failure likely due to decompensated heart failure. * Will order echocardiogram to further evaluate cardiac structure and function. * Lasix IV 40 mg daily. * It is difficult to assess strict I&O's given the patient is on continuous bladder irrigation. * 1.5 L fluid restricted diet. * Will wean oxygen as tolerated patient is currently down to 1 L nasal cannula. * Cardiology consulted. (4) Acute hypoxic respiratory failure: Code(s): J96.01 - Acute respiratory failure with hypoxia Status: Acute Assessment and Plan: * Likely due to acute heart failure exacerbation. * Requiring 1 L O2 currently. (5) Elevated troponin: Code(s): R79.89 - Other specified abnormal findings of blood chemistry Status: Acute Assessment and Plan: The patient does have a elevated troponin. * Trop: 0.068, 0.071, 0.073 * Not actively having chest pain. * Echocardiogram ordered. * Cardiology consulted. (6) CKD (chronic kidney disease) stage 3, GFR 30-59 ml/min: Qualifiers: Chronic kidney disease stage 3 subtype: stage 3a (GFR 45-59) Qualified Code(s): N18.31 - Chronic kidney disease, stage 3a Code(s): N18.30 - Chronic kidney disease, stage 3 unspecified Status: Acute Assessment and Plan: * BUN and Cr slightly above her normal. * Continue to monitor. (7) Essential hypertension: Code(s): I10 - Essential (primary) hypertension Status: Acute Assessment and Plan: * Continue home medications. Subjective Date/time seen: 05/10/23 11:42 Interval history: Patient is a very poor historian. at beside. patient states that she is hematuria for quite some time but is unable to quantify how long it is on. Patient denies shortness of breath or chest pain. She does appear intermittently confused. When asking her orientation questions patient's answered mg for her. She states she takes her medications as prescribed but due to her memory problems unsure if this is accurate. Patient does have elevated troponin and what appears to be new CHF onset. Cardiology consulted
--- NOTE | 2023-05-10 11:42 | PM.IMPN ---
Progress Note: A&P Assessment and Plan (1) Gross hematuria: Code(s): R31.0 - Gross hematuria Status: Acute Assessment and Plan: patient found to have gross hematuria. Patient has known about this but is unsure about how long this has been going on. Patient placed on CBI. Urology consulted Jessica on hold. Suspected cause of it being the 8 cm left renal mass. (2) Renal cell carcinoma: Qualifiers: Laterality: left Qualified Code(s): C64.2 - Malignant neoplasm of left kidney, except renal pelvis Code(s): C64.9 - Malignant neoplasm of unspecified kidney, except renal pelvis Status: Acute Assessment and Plan: patient found to have a 8 cm renal mass on the left kidney on CT abdomen pelvis. No metastases noted on CT of the abdomen. Urology recommending follow-up chest CT to evaluate for metastases. Urology discussed options, outcomes and what to expect with the patient. Plan to follow-up with Dr. Palmer an outpatient. (3) Acute exacerbation of congestive heart failure: Qualifiers: Heart failure type: unspecified Qualified Code(s): I50.9 - Heart failure, unspecified Code(s): I50.9 - Heart failure, unspecified Status: Acute Assessment and Plan: Patient has acute hypoxic respiratory failure likely due to decompensated heart failure. Will order echocardiogram to further evaluate cardiac structure and function. Lasix IV 40 mg daily. It is difficult to assess strict I&O's given the patient is on continuous bladder irrigation. 1.5 L fluid restricted diet. Will wean oxygen as tolerated patient is currently down to 1 L nasal cannula. Cardiology consulted. (4) Acute hypoxic respiratory failure: Code(s): J96.01 - Acute respiratory failure with hypoxia Status: Acute Assessment and Plan: Likely due to acute heart failure exacerbation. Requiring 1 L O2 currently. (5) Elevated troponin: Code(s): R79.89 - Other specified abnormal findings of blood chemistry Status: Acute Assessment and Plan: The patient does have a elevated troponin. Trop: 0.068, 0.071, 0.073 Not actively having chest pain. Echocardiogram ordered. Cardiology consulted. (6) CKD (chronic kidney disease) stage 3, GFR 30-59 ml/min: Qualifiers: Chronic kidney disease stage 3 subtype: stage 3a (GFR 45-59) Qualified Code(s): N18.31 - Chronic kidney disease, stage 3a Code(s): N18.30 - Chronic kidney disease, stage 3 unspecified Status: Acute Assessment and Plan: BUN and Cr slightly above her normal. Continue to monitor. (7) Essential hypertension: Code(s): I10 - Essential (primary) hypertension Status: Acute Assessment and Plan: Continue home medications. Subjective Date/time seen: 05/10/23 11:42 Interval history: Patient is a very poor historian. at beside. patient states that she is hematuria for quite some time but is unable to quantify how long it is on. Patient denies shortness of breath or chest pain. She does appear intermittently confused. When asking her orientation questions patient's answered mg for her. She states she takes her medications as prescribed but due to her memory problems unsure if this is accurate. Patient does have elevated troponin and what appears to be new CHF onset. Cardiology consulted patient appreciate recommendations. Patient also found to have a renal mass which is thought to be the cause of her hematuria. Urology consulted and appreciate recommendations. Exam Narrative: GENERAL: Comfortable, no acute distress HENMT: moist mucous membranes EYES: EOM intact b/l NECK: no lymphadenopathy RESPIRATORY: clear to auscultation CARDIO: RRR GI: soft, nontender, bowel sounds present SKIN: no rashes EXTREMITIES: 2+ edema below the knee, no redness or tend
[2023-05-10 11:52] LABS: Troponin I 0.073 ng/mL (0.000-0.034)
--- NOTE | 2023-05-10 11:53 | WPDURCON ---
Assessment and Plan Assessment and plan (1) Gross hematuria: Code(s): R31.0 - Gross hematuria Status: Acute Assessment and Plan: Gross hematuria secondary to Xarelto and large left renal mass. This clears quickly with bladder irrigation. Her hemoglobin is normal. I would hold the Xarelto for 2-3 days at a minimum and I would expect this to clear nicely. I do not think she will go home with the Tan. (2) Renal cell carcinoma: Qualifiers: Laterality: left Qualified Code(s): C64.2 - Malignant neoplasm of left kidney, except renal pelvis Code(s): C64.9 - Malignant neoplasm of unspecified kidney, except renal pelvis Status: Acute Assessment and Plan: 8 cm left renal mass. There is no evidence of metastasis on her CT abdomen. Ideally she will have a CT chest given the size of the mass and the pulmonary congestion which will limit detection of pulmonary mets on the chest x-ray. Assuming she is not metastatic, she and her other medical doctors need to come to a decision about whether she wants to proceed with a radical nephrectomy. We discussed the surgery, how it is performed, risk of worsening renal function, risks of surgery especially with her cardiac status which appears tenuous. Her is an established patient of Dr. Palmer and I will request a follow-up with him in the next few weeks to review further. Urology Consult Note HPI Date Seen: 05/10/23 Requesting Physician: Sabi Lamb DO Primary Care Provider: Jessy Ryan MD Consult Narrative Narrative: Carolina De Anda is a 82 year old female admitted for CHF exacerbation with dyspnea, mental status changes. Apparently she was unable to even lie flat for her CT scan without significant respiratory distress. From review of the admission note, she is pretty comorbid with pacemaker and uncontrolled CHF for which she sometimes does not take her medications. She has been given high doses of diuretics and is now doing much better today and resting comfortably in bed. Urology was consulted because she had gross hematuria. She now has a catheter running some irrigation and the urine is clear. She is on Xarelto. CT showed an 8 cm left renal mass with no evidence of metastasis. Hemoglobin 14.2 Creatinine 1.3, baseline Urinalysis without evidence of infection Review of Systems Review of Systems: All systems reviewed & are unremarkable except as noted in HPI and below PMFSH Past Medical History Medical History Adult hypothyroidism Anemia Benign reactive hypertension CKD (chronic kidney disease) stage 3, GFR 30-59 ml/min Hypertension Mixed hyperlipidemia Obesity Osteoporosis Paroxysmal atrial fibrillation Restrictive lung disease Mild restrictive lung disease noted on PFTs 2009 Rheumatoid arthritis SSS (sick sinus syndrome) Transfusion history Trochanteric bursitis Type 2 diabetes mellitus with diabetic chronic kidney disease Vitamin D deficiency Surgical History Surgical History (Updated 05/10/23 @ 02:30 by Sabi Lamb DO) Biventricular cardiac pacemaker in situ (2007) With generator exchange in 2018 Status post biventricular cardiac pacemaker insertion Family History Family History Mother Hypertension Heart problem Father Unknown family medical history Sibling Myocardial infarct Sibling Unknown family medical history Social History Social History (Updated 05/10/23 @ 04:59 by Sabi Lamb DO) Social History: Patient lives with her of almost 60 years. Her reports that they raised 2 children. She is a lifelong nonsmoker and only on rare occasion she will have a glass of wine. She does not have a history of illicit substance use. Her reports that she ambulates with a shuffling gait but does not use a walker. Code status: DN
[2023-05-10 12:01] LABS: Glucose Point of Care 111 mg/dl (65-105)
--- NOTE | 2023-05-10 15:21 | PC.NURSE ---
[facility] [employer] notified of Sepsis alert et criterion noted. NO new orders at this time.
[2023-05-10 15:49] LABS: Glucose Point of Care 110 mg/dl (65-105)
[2023-05-10] MEDS: AZITHROMYCIN 500 MG/NS 250 ML 500 MG/250 ML BAG 250 MG IVPB (20:31)
[2023-05-10 20:33] LABS: Glucose Point of Care 99 mg/dl (65-105)
[2023-05-11] VITALS (18 sets, daily range): BP systolic 120–149; BP diastolic 48–70; PULSE 59–65; RESP 18–28; TEMP 36.3–37.4; O2SAT 92–98
[2023-05-11 05:07] LABS: Hematocrit 35.2 % (37.0-47.0); Hemoglobin 11.4 g/dL (12.0-15.0); Mean Corpuscular HGB Conc 32.4 g/dl (32-36); Mean Corpuscular Hemoglobin 28.6 pg (26-34); Mean Corpuscular Volume 88.2 fl (80-100); Mean Platelet Volume 10.3 fl (7.4-10.4); Platelet Count Result 181 k/mm3 (150-375); Red Blood Count 3.99 M/mm3 (4.2-5.4); Red Cell Distribution Width 15.3 % (11.5-14.5); White Blood Count 24.8 K/mm3 (4.5-10.0)
[2023-05-11 05:45] LABS: Alanine Aminotransferase 8 U/L (6-35); Albumin Level 3.2 g/dL (3.5-5.1); Alkaline Phosphatase 66 U/L (38-126); Anion Gap 5 mmol/L (8-16); Aspartate Amino Transferase 27 U/L (14-36); Bilirubin,Total 0.5 mg/dL (0.2-1.3); Blood Urea Nitrogen 41 mg/dL (7-17); Calcium 8.6 mg/dL (8.4-10.2); Carbon Dioxide 30 mmol/L (22-30); Chloride 102 mmol/L (98-107); Estimated CRCL calculation 23 ml/min; Estimated Glomerular Filt Rate 24; Glucose 90 mg/dL (65-110); Potassium 3.2 mmol/L (3.4-5.0); Sodium 137 mmol/L (137-145)
[2023-05-11] MEDS: LEVOTHYROXINE SODIUM 100 MCG TABLET PO (05:55)
[2023-05-11 07:44] LABS: Glucose Point of Care 84 mg/dl (65-105)
[2023-05-11] MEDS: amLODIPine BESYLATE 5 MG TABLET PO (08:48)
[2023-05-11] MEDS: PRAVASTATIN SODIUM 20 MG TABLET PO (08:48)
[2023-05-11] MEDS: carvediloL 25 MG TABLET PO ×2 (08:48→20:16)
[2023-05-11] MEDS: FUROSEMIDE INJ 40 MG/4 ML VIAL IV PUSH (08:49)
[2023-05-11] MEDS: POTASSIUM CHLORIDE 20 MEQ ER TABLET 40 MEQ PO (09:00)
[2023-05-11 11:34] LABS: Glucose Point of Care 95 mg/dl (65-105)
--- NOTE | 2023-05-11 12:06 | PM.PNCARD ---
Progress Note: A&P Assessment and Plan (1) Elevated troponin: Code(s): R79.89 - Other specified abnormal findings of blood chemistry Status: Acute Plan 82-year-old lady with: Presumptive diagnosis of renal cell carcinoma. She has a very abnormal looking chest x-ray and I would agree with the urology consult and that CT scan of her chest is appropriate for further evaluation of this. Her echocardiogram does not show any deterioration in left ventricular systolic function and she does not report symptoms of decompensated heart failure. It is obviously important to evaluate for evidence of metastatic involvement in the chest. Appropriate urology follow-up will take place after this discharge. From the cardiac point of view she is stable for discharge but I would encourage a CT of the chest to be done prior to dismissing her Jeferson Spivey MD [facility] Subjective Date/time seen: Date of service: 05/11/23 12:06 Interval history: Follow-up visit in this 82-year-old woman with: History of sick sinus syndrome with previously implanted dual-chamber pacemaker which is functioning well and with which she has not had any problems. She entered the hospital with symptoms of generalized weakness altered mental status and some hypoxemia although she was not short of breath. No previous history of congestive heart failure. Unfortunately patient has been found to have a fairly large renal mass likely representing renal cell carcinoma. Abnormal appearing chest x-ray which was initially raising concern regarding CHF although metastatic disease in the chest has not been excluded. Exam HENMT: Mouth: Yes moist mucous membranes Eyes: Sclera: sclerae normal Neck: Neck: supple Other: No obvious venous distention exam is for that is little bit difficult Resp: Effort & Inspection: normal respiratory effort Other: A few scattered crackles are noted, no wheezing no rhonchi Cardio: Rate: regular rate Rhythm: regular rhythm Other: For PMI grossly not displaced S1-S2 are normal GI: Auscultation: normal bowel sounds Skin: General skin exam: normal color Neuro: Other: Alert and oriented x3 Extrem: Other: Adequate perfusion, no edema Objective Data Vital Signs Vital Signs: Vital Signs - 24 hr 05/10/23 15:23 05/10/23 16:00 05/10/23 14:00 Temperature 36.5 C Pulse Rate 60 60 Respiratory Rate 20 Blood Pressure 122/50 L Pulse Oximetry 96 Oxygen Delivery Room Air Oxygen Flow Rate 05/10/23 18:00 05/10/23 16:00 05/10/23 20:30 Temperature Pulse Rate 60 60 60 Respiratory Rate Blood Pressure Pulse Oximetry Oxygen Delivery Oxygen Flow Rate 05/10/23 20:35 05/10/23 20:00 05/10/23 20:00 Temperature 36.2 C L Pulse Rate 60 60 60 Respiratory Rate 18 18 Blood Pressure 115/46 L Pulse Oximetry 97 97 Oxygen Delivery Nasal Cannula Oxygen Flow Rate 1 05/10/23 22:00 05/10/23 23:31 05/10/23 23:40 Temperature 36.2 C L Pulse Rate 60 60 60 Respiratory Rate 18 18 Blood Pressure 136/51 L Pulse Oximetry 95 95 Oxygen Delivery Nasal Cannula Oxygen Flow Rate 1 05/11/23 00:00 05/11/23 02:00 05/11/23 04:00 Temperature Pulse Rate 60 60 60 Respiratory Rate Blood Pressure Pulse Oximetry Oxygen Delivery Oxygen Flow Rate 05/11/23 05:12 05/11/23 04:00 05/11/23 05:27 Temperature 36.3 C L Pulse Rate 62 62 60 Respiratory Rate 18 18 Blood Pressure 120/48 L Pulse Oximetry 98 98 Oxygen Delivery Room Air Oxygen Flow Rate 05/10/23 22:13 05/11/23 07:44 05/11/23 07:50 Temperature Pulse Rate Respiratory Rate Blood Pressure 146/51 H Pulse Oximetry 98 Oxygen Delivery Room Air Room Air Oxygen Flow Rate 05/11/23 08:00 05/11/23 08:48 Temperature 37.1 C Pulse Rate 62 65 Respiratory Rate 28 H Blood Pressure 146/51 H Pulse Oximetry 92 Oxygen Delivery Oxygen Flow Rate
--- NOTE | 2023-05-11 12:37 | P.PNIM_ITS ---
Progress Note: A&P Assessment and Plan (1) Gross hematuria: Code(s): R31.0 - Gross hematuria Status: Acute Assessment and Plan: patient found to have gross hematuria. Patient has known about this but is unsure about how long this has been going on. * Patient placed on CBI. * Urology consulted * Xarelto on hold. * Suspected cause of it being the 8 cm left renal mass. * 05/10 Pt continues to pass clots. (2) Renal cell carcinoma: Qualifiers: Laterality: left Qualified Code(s): C64.2 - Malignant neoplasm of left kidney, except renal pelvis Code(s): C64.9 - Malignant neoplasm of unspecified kidney, except renal pelvis Status: Acute Assessment and Plan: patient found to have a 8 cm renal mass on the left kidney on CT abdomen pelvis. No metastases noted on CT of the abdomen. * Urology recommending follow-up chest CT to evaluate for metastases. * Urology discussed options, outcomes and what to expect with the patient. * Plan to follow-up with Dr. Palmer an outpatient. * Chest CT ordered to rule out metastasis. (3) Acute exacerbation of congestive heart failure: Qualifiers: Heart failure type: unspecified Qualified Code(s): I50.9 - Heart failure, unspecified Code(s): I50.9 - Heart failure, unspecified Status: Acute Assessment and Plan: Patient has acute hypoxic respiratory failure likely due to decompensated heart failure. * Echocardiogram without significant abnormalities * Lasix IV 40 mg daily. * It is difficult to assess strict I&O's given the patient is on continuous bladder irrigation. * 1.5 L fluid restricted diet. * Patient now on room air * Cardiology consulted. (4) Acute hypoxic respiratory failure: Code(s): J96.01 - Acute respiratory failure with hypoxia Status: Acute Assessment and Plan: * Likely due to acute heart failure exacerbation. * Requiring 1 L O2 currently. (5) Elevated troponin: Code(s): R79.89 - Other specified abnormal findings of blood chemistry Status: Acute Assessment and Plan: The patient does have a elevated troponin. * Trop: 0.068, 0.071, 0.079, 0.073 * Not actively having chest pain. * Echocardiogram without significant abnormalities * Cardiology consulted. (6) CKD (chronic kidney disease) stage 3, GFR 30-59 ml/min: Qualifiers: Chronic kidney disease stage 3 subtype: stage 3a (GFR 45-59) Qualified Code(s): N18.31 - Chronic kidney disease, stage 3a Code(s): N18.30 - Chronic kidney disease, stage 3 unspecified Status: Acute Assessment and Plan: * BUN and Cr slightly above her normal. * Continue to monitor. (7) Essential hypertension: Code(s): I10 - Essential (primary) hypertension Status: Acute Assessment and Plan: * Continue home medications. Subjective Date/time seen: 05/11/23 12:37 Interval history: Patient doing well today without new complaints. She is oxygen. She is still passing clots. She continues on CBI. She states she plans on following up with Urology for her renal mass. Kidney function is worsened today. This could be due from Lasix. Will place on hold. Exam Narrative: GENERAL: Comfortable, no acute distress HENMT: moist mucous membranes EYES: EOM intact b/l NECK: no lymphadenopathy RESPIRATORY: clear to auscultation CARDIO: RRR G
--- NOTE | 2023-05-11 12:37 | PM.IMPN ---
Progress Note: A&P Assessment and Plan (1) Gross hematuria: Code(s): R31.0 - Gross hematuria Status: Acute Assessment and Plan: patient found to have gross hematuria. Patient has known about this but is unsure about how long this has been going on. Patient placed on CBI. Urology consulted Jessica on hold. Suspected cause of it being the 8 cm left renal mass. 05/10 Pt continues to pass clots. (2) Renal cell carcinoma: Qualifiers: Laterality: left Qualified Code(s): C64.2 - Malignant neoplasm of left kidney, except renal pelvis Code(s): C64.9 - Malignant neoplasm of unspecified kidney, except renal pelvis Status: Acute Assessment and Plan: patient found to have a 8 cm renal mass on the left kidney on CT abdomen pelvis. No metastases noted on CT of the abdomen. Urology recommending follow-up chest CT to evaluate for metastases. Urology discussed options, outcomes and what to expect with the patient. Plan to follow-up with Dr. Palmer an outpatient. Chest CT ordered to rule out metastasis. (3) Acute exacerbation of congestive heart failure: Qualifiers: Heart failure type: unspecified Qualified Code(s): I50.9 - Heart failure, unspecified Code(s): I50.9 - Heart failure, unspecified Status: Acute Assessment and Plan: Patient has acute hypoxic respiratory failure likely due to decompensated heart failure. Echocardiogram without significant abnormalities Lasix IV 40 mg daily. It is difficult to assess strict I&O's given the patient is on continuous bladder irrigation. 1.5 L fluid restricted diet. Patient now on room air Cardiology consulted. (4) Acute hypoxic respiratory failure: Code(s): J96.01 - Acute respiratory failure with hypoxia Status: Acute Assessment and Plan: Likely due to acute heart failure exacerbation. Requiring 1 L O2 currently. (5) Elevated troponin: Code(s): R79.89 - Other specified abnormal findings of blood chemistry Status: Acute Assessment and Plan: The patient does have a elevated troponin. Trop: 0.068, 0.071, 0.079, 0.073 Not actively having chest pain. Echocardiogram without significant abnormalities Cardiology consulted. (6) CKD (chronic kidney disease) stage 3, GFR 30-59 ml/min: Qualifiers: Chronic kidney disease stage 3 subtype: stage 3a (GFR 45-59) Qualified Code(s): N18.31 - Chronic kidney disease, stage 3a Code(s): N18.30 - Chronic kidney disease, stage 3 unspecified Status: Acute Assessment and Plan: BUN and Cr slightly above her normal. Continue to monitor. (7) Essential hypertension: Code(s): I10 - Essential (primary) hypertension Status: Acute Assessment and Plan: Continue home medications. Subjective Date/time seen: 05/11/23 12:37 Interval history: Patient doing well today without new complaints. She is oxygen. She is still passing clots. She continues on CBI. She states she plans on following up with Urology for her renal mass. Kidney function is worsened today. This could be due from Lasix. Will place on hold. Exam Narrative: GENERAL: Comfortable, no acute distress HENMT: moist mucous membranes EYES: EOM intact b/l NECK: no lymphadenopathy RESPIRATORY: clear to auscultation CARDIO: RRR GI: soft, nontender, bowel sounds present SKIN: no rashes EXTREMITIES: 1+ edema below the knee, no redness or tenderness Objective Data Vital Signs Vital Signs: Vital Signs - 24 hr 05/10/23 15:23 05/10/23 16:00 05/10/23 14:00 Temperature 97.7 F Pulse Rate 60 60 Respiratory Rate 20 Blood Pressure 122/50 L Pulse Oximetry 96 Oxygen Delivery Room Air Oxygen Flow Rate 05/10/23 18:00 05/10/23 16:00 05/10/23 20:30 Temperature Pulse Rate 60 60 60 Respiratory Rate Blood Pressure
[2023-05-11 16:02] LABS: Glucose Point of Care 108 mg/dl (65-105)
--- NOTE | 2023-05-11 16:37 | PC.NURSE ---
May go off the unit without RN escort to CT per Keya MATUTE
[2023-05-11] MEDS: AZITHROMYCIN 500 MG/NS 250 ML 500 MG/250 ML BAG 250 MG IVPB (20:19)
[2023-05-11 20:37] LABS: Glucose Point of Care 99 mg/dl (65-105)
[2023-05-12] VITALS (11 sets, daily range): BP systolic 147–175; BP diastolic 48–69; PULSE 60–69; RESP 16–20; TEMP 36.3–36.5; O2SAT 95–98
[2023-05-12 04:16] LABS: Hematocrit 35.2 % (37.0-47.0); Hemoglobin 10.6 g/dL (12.0-15.0); Mean Corpuscular HGB Conc 30.1 g/dl (32-36); Mean Corpuscular Hemoglobin 27.4 pg (26-34); Mean Platelet Volume 10.6 fl (7.4-10.4); Platelet Count Result 185 k/mm3 (150-375); Red Blood Count 3.87 M/mm3 (4.2-5.4); White Blood Count 15.7 K/mm3 (4.5-10.0)
[2023-05-12 04:22] LABS: Anion Gap 5 mmol/L (8-16); Blood Urea Nitrogen 45 mg/dL (7-17); Calcium 8.8 mg/dL (8.4-10.2); Carbon Dioxide 28 mmol/L (22-30); Chloride 106 mmol/L (98-107); Estimated CRCL calculation 31 ml/min; Estimated Glomerular Filt Rate 33; Glucose 91 mg/dL (65-110); Potassium 3.3 mmol/L (3.4-5.0); Sodium 139 mmol/L (137-145)
[2023-05-12] MEDS: LEVOTHYROXINE SODIUM 100 MCG TABLET PO (06:26)
[2023-05-12 08:00] LABS: Glucose Point of Care 91 mg/dl (65-105)
--- NOTE | 2023-05-12 08:32 | P.PNIM_ITS ---
Progress Note: A&P Assessment and Plan (1) Gross hematuria: Code(s): R31.0 - Gross hematuria Status: Acute Assessment and Plan: patient found to have gross hematuria. Patient has known about this but is unsure about how long this has been going on. * Urology consulted * CBI discontinued 05/11. * Xarelto on hold. * Suspected cause of it being the 8 cm left renal mass. * Plan for cystoscopy tomrrow. (2) Renal cell carcinoma: Qualifiers: Laterality: left Qualified Code(s): C64.2 - Malignant neoplasm of left kidney, except renal pelvis Code(s): C64.9 - Malignant neoplasm of unspecified kidney, except renal pelvis Status: Acute Assessment and Plan: patient found to have a 8 cm renal mass on the left kidney on CT abdomen pelvis. No metastases noted on CT of the abdomen. * Urology recommending follow-up chest CT to evaluate for metastases. * Urology discussed options, outcomes and what to expect with the patient. * Plan to follow-up with Dr. Palmer an outpatient. * Chest CT did not show any evidence of metastases. (3) Acute exacerbation of congestive heart failure: Qualifiers: Heart failure type: unspecified Qualified Code(s): I50.9 - Heart failure, unspecified Code(s): I50.9 - Heart failure, unspecified Status: Acute Assessment and Plan: Patient has acute hypoxic respiratory failure likely due to decompensated heart failure. * 1.5 L fluid restricted diet. * Patient now on room air * Cardiology consulted. * Echocardiogram without significant abnormalities * Lasix held due to patient's worsening kidney function. She appears euvolemic. (4) Pneumonia: Code(s): J18.9 - Pneumonia, unspecified organism Status: Acute Assessment and Plan: Presentation patient found to have ground-glass opacities on CT the abdomen pelvis her presented pneumonia. * On presentation patient was hypoxic requiring oxygen supplementation. * She was started on Rocephin and azithromycin On 05/09/2023 * Patient denied ever having a cough. * She was found to have leukocytosis on presentation with a white count of 34.6. White count trending down. * 05/11 patient transition to p.o. antibiotics Augmentin and azithromycin. * PT and OT working with pt. (5) Acute hypoxic respiratory failure: Code(s): J96.01 - Acute respiratory failure with hypoxia Status: Resolved Assessment and Plan: * Acute heart failure exacerbation Versus pneumonia. resolved (6) Elevated troponin: Code(s): R79.89 - Other specified abnormal findings of blood chemistry Status: Resolved Assessment and Plan: The patient does have a elevated troponin. * Trop: 0.068, 0.071, 0.079, 0.073 * Not actively having chest pain. * Echocardiogram without significant abnormalities * Cardiology consulted. (7) CKD (chronic kidney disease) stage 3, GFR 30-59 ml/min: Qualifiers: Chronic kidney disease stage 3 subtype: stage 3a (GFR 45-59) Qualified Code(s): N18.31 - Chronic kidney disease, stage 3a Code(s): N18.30 - Chronic kidney disease, stage 3 unspecified Status: Acute Assessment and Plan: * BUN and Cr slightly above her normal. * Continue to monitor. (8) Essential hypertension: Code(s): I10 - Essential (primary) hypertension Status: Acute Assessment and Plan: * Continue home medication
--- NOTE | 2023-05-12 08:32 | PM.IMPN ---
Progress Note: A&P Assessment and Plan (1) Gross hematuria: Code(s): R31.0 - Gross hematuria Status: Acute Assessment and Plan: patient found to have gross hematuria. Patient has known about this but is unsure about how long this has been going on. Urology consulted CBI discontinued 05/11. Xarelto on hold. Suspected cause of it being the 8 cm left renal mass. Plan for cystoscopy tomrrow. (2) Renal cell carcinoma: Qualifiers: Laterality: left Qualified Code(s): C64.2 - Malignant neoplasm of left kidney, except renal pelvis Code(s): C64.9 - Malignant neoplasm of unspecified kidney, except renal pelvis Status: Acute Assessment and Plan: patient found to have a 8 cm renal mass on the left kidney on CT abdomen pelvis. No metastases noted on CT of the abdomen. Urology recommending follow-up chest CT to evaluate for metastases. Urology discussed options, outcomes and what to expect with the patient. Plan to follow-up with Dr. Palmer an outpatient. Chest CT did not show any evidence of metastases. (3) Acute exacerbation of congestive heart failure: Qualifiers: Heart failure type: unspecified Qualified Code(s): I50.9 - Heart failure, unspecified Code(s): I50.9 - Heart failure, unspecified Status: Acute Assessment and Plan: Patient has acute hypoxic respiratory failure likely due to decompensated heart failure. 1.5 L fluid restricted diet. Patient now on room air Cardiology consulted. Echocardiogram without significant abnormalities Lasix held due to patient's worsening kidney function. She appears euvolemic. (4) Pneumonia: Code(s): J18.9 - Pneumonia, unspecified organism Status: Acute Assessment and Plan: Presentation patient found to have ground-glass opacities on CT the abdomen pelvis her presented pneumonia. On presentation patient was hypoxic requiring oxygen supplementation. She was started on Rocephin and azithromycin On 05/09/2023 Patient denied ever having a cough. She was found to have leukocytosis on presentation with a white count of 34.6. White count trending down. 05/11 patient transition to p.o. antibiotics Augmentin and azithromycin. PT and OT working with pt. (5) Acute hypoxic respiratory failure: Code(s): J96.01 - Acute respiratory failure with hypoxia Status: Resolved Assessment and Plan: Acute heart failure exacerbation Versus pneumonia. resolved (6) Elevated troponin: Code(s): R79.89 - Other specified abnormal findings of blood chemistry Status: Resolved Assessment and Plan: The patient does have a elevated troponin. Trop: 0.068, 0.071, 0.079, 0.073 Not actively having chest pain. Echocardiogram without significant abnormalities Cardiology consulted. (7) CKD (chronic kidney disease) stage 3, GFR 30-59 ml/min: Qualifiers: Chronic kidney disease stage 3 subtype: stage 3a (GFR 45-59) Qualified Code(s): N18.31 - Chronic kidney disease, stage 3a Code(s): N18.30 - Chronic kidney disease, stage 3 unspecified Status: Acute Assessment and Plan: BUN and Cr slightly above her normal. Continue to monitor. (8) Essential hypertension: Code(s): I10 - Essential (primary) hypertension Status: Acute Assessment and Plan: Continue home medications. Subjective Date/time seen: 05/12/23 08:32 Interval history: Patient feeling well today. She was working with therapy when a the room. Patient is overall weak but managing. She may need at discharge. CBI was discontinued today. Plan on cystoscopy for tomorrow. Exam Narrative: GENERAL: Comfortable, no acute distress HENMT: moist mucous membranes EYES: EOM intact b/l NECK: no lymphadenopathy RESPIRATORY: clear to auscultation, no increased respiratory eff
--- NOTE | 2023-05-12 09:20 | WPDUROPN2 ---
Progress Note: A&P Assessment and Plan (1) Gross hematuria: Code(s): R31.0 - Gross hematuria Status: Acute Assessment and Plan: Gross hematuria secondary to Xarelto and large left renal mass. Urine is now clear on slow CBI. Hemoglobin and hematocrit remaining stable. Xarelto remains on hold. Will stop CBI at this time. Plan for flexible cystoscopy in the OR tomorrow with Dr. Palmer to evaluate for bladder clots. (2) Renal cell carcinoma: Qualifiers: Laterality: left Qualified Code(s): C64.2 - Malignant neoplasm of left kidney, except renal pelvis Code(s): C64.9 - Malignant neoplasm of unspecified kidney, except renal pelvis Status: Acute Assessment and Plan: 8 cm left renal mass. There is no evidence of metastasis on her CT abdomen or CT chest. Radical nephrectomy has been discussed, she will review with her medical team and determine if she wishes to proceed given her cardiac status. She will follow-up with Dr. Palmer following discharge for further discussion. Subjective Subjective Date/Time Seen: 05/12/23 09:20 Interval history: Carolina is feeling well today. She denies flank pain or back pain. No issues with her Tan catheter which is draining clear yellow urine on slow CBI. Review of Systems Review of Systems: All systems reviewed & are unremarkable except as noted in HPI and below Exam Narrative: General: Awake, alert, comfortable, no acute distress HEENT: Normocephalic, atraumatic, sclerae anicteric Respiratory: Normal respiratory effort, no accessory muscle use Abdomen: Nondistended, soft, nontender : Tan catheter draining clear yellow urine on slow CBI Skin: Normal coloration, warm and dry Neurologic: No focal neuro deficits noted Psychiatric: Appropriate mood and affect, judgment and insight intact Objective Data Vital Signs Vital Signs: Vital Signs - 24 hr 05/11/23 12:00 05/11/23 10:00 05/11/23 12:00 Temperature 99.4 F Pulse Rate 59 L 61 60 Respiratory Rate 24 H Blood Pressure 134/48 L Pulse Oximetry 93 Oxygen Delivery 05/11/23 12:00 05/11/23 16:00 05/11/23 20:16 Temperature 99.1 F Pulse Rate 61 63 Respiratory Rate 28 H Blood Pressure 149/61 H Pulse Oximetry 93 Oxygen Delivery Room Air 05/11/23 16:00 05/11/23 14:00 05/11/23 16:00 Temperature Pulse Rate 60 61 Respiratory Rate Blood Pressure Pulse Oximetry Oxygen Delivery Room Air 05/11/23 18:00 05/11/23 20:45 05/11/23 23:17 Temperature 97.4 F L 97.4 F L Pulse Rate 61 60 60 Respiratory Rate 18 18 Blood Pressure 147/70 H 138/68 Pulse Oximetry 98 98 Oxygen Delivery 05/12/23 05:05 05/12/23 07:31 05/12/23 08:03 Temperature 97.4 F L 97.6 F Pulse Rate 60 61 Respiratory Rate 18 20 Blood Pressure 153/69 H 175/57 H Pulse Oximetry 98 95 Oxygen Delivery Room Air 05/11/23 20:00 05/12/23 00:00 05/12/23 04:00 Temperature Pulse Rate 60 60 60 Respiratory Rate 18 18 18 Blood Pressure Pulse Oximetry 98 98 98 Oxygen Delivery Room Air Room Air Room Air Intake/Output Intake/Output: Intake & Output 05/09/23 05/10/23 05/11/23 05/12/23 23:59 23:59 23:59 23:59 Intake Total 300 1420 1170 300 Output Total 13964 54233 8150 1150 [facility] [id number] [id number] [id number] [phone] Meds/Results Medications: Active Medications Generic Name Dose Route Start Last Admin Trade Name Freq PRN Reason Stop Dose Admin Acetaminophen 650 mg 05/10/23 15:22 Acetaminophen 325 Mg Tablet PO Q6H PRN Mild Pain (1-3) or Fever Hydrocodone Bitart/Acetaminophen 1 tab 05/10/23 15:22 Hydrocodone/Acetaminophen (*Crx) 5-325 Mg Tablet PO Q6H PRN Pain Rated 4-6 Amlodipine Besylate 5 mg 05/10/23 09:00 05/11/23 08:48 Amlodipine Besylate 5 Mg Tablet PO 5 mg QAM JAMARCUS Administration Amoxicillin/Clavulanate Potassium 1 tablet 05/12/23 09:00 Amoxicillin/Clavulanate K 875-125 Mg Ta
[2023-05-12] MEDS: AMOXICILLIN/CLAVULANATE K 875-125 MG TAB 1 TABLET PO ×2 (09:37→21:06)
[2023-05-12] MEDS: carvediloL 25 MG TABLET PO ×2 (09:37→21:06)
[2023-05-12] MEDS: amLODIPine BESYLATE 5 MG TABLET PO (09:37)
[2023-05-12] MEDS: PRAVASTATIN SODIUM 20 MG TABLET PO (09:37)
--- NOTE | 2023-05-12 10:54 | PC.NURSE ---
This patient, Carolina De Anda, was transferred to [[facility]-] on 05/12/23 at 1054. Personal belongings sent with patient. Report given to [ NUBIA Cartwright @ 1040]. Appropriate documentation sent with patient.
--- NOTE | 2023-05-12 11:34 | PC.NURSE ---
patient to the floor at 1110, at bedside. denies pain, CBI off upon arrival, patient on RA, Saline locked IV. bed alarm on. call light in reach.
--- NOTE | 2023-05-12 11:35 | PC.NURSE ---
report from Tiesha DELACRUZ at 1044 05/12/23
[2023-05-12 11:49] LABS: Glucose Point of Care 93 mg/dl (65-105)
[2023-05-12 16:12] LABS: Glucose Point of Care 110 mg/dl (65-105)
[2023-05-12] MEDS: AZITHROMYCIN 250 MG TABLET 500 MG PO (21:06)
[2023-05-12 22:33] LABS: Glucose Point of Care 117 mg/dl (65-105)
[2023-05-13] MEDS: LEVOTHYROXINE SODIUM 100 MCG TABLET PO (05:15)
[2023-05-13 06:00] VITALS: BP 161/62; PULSE 61; RESP 16; TEMP 36.4; O2SAT 95
[2023-05-13 06:42] LABS: Hematocrit 34.9 % (37.0-47.0); Hemoglobin 10.8 g/dL (12.0-15.0); Mean Corpuscular HGB Conc 30.9 g/dl (32-36); Mean Corpuscular Hemoglobin 28.1 pg (26-34); Mean Corpuscular Volume 90.9 fl (80-100); Mean Platelet Volume 10.1 fl (7.4-10.4); Platelet Count Result 191 k/mm3 (150-375); Red Blood Count 3.84 M/mm3 (4.2-5.4); White Blood Count 9.4 K/mm3 (4.5-10.0)
[2023-05-13 06:53] LABS: Anion Gap -1 mmol/L (8-16); Blood Urea Nitrogen 35 mg/dL (7-17); Carbon Dioxide 32 mmol/L (22-30); Chloride 109 mmol/L (98-107); Estimated CRCL calculation 38 ml/min; Estimated Glomerular Filt Rate 43; Glucose 103 mg/dL (65-110); Potassium 3.5 mmol/L (3.4-5.0); Sodium 140 mmol/L (137-145)
[2023-05-13 07:53] LABS: Glucose Point of Care 100 mg/dl (65-105)
--- NOTE | 2023-05-13 08:53 | WPDUROPN2 ---
Progress Note: A&P Assessment and Plan (1) Gross hematuria: Code(s): R31.0 - Gross hematuria Status: Acute Assessment and Plan: Gross hematuria felt to be secondary to Xarelto and large left renal mass. Urine is now clear off CBI. Hemoglobin and hematocrit remaining stable. Xarelto remains on hold. Planning for flexible cystoscopy in the OR this afternoon with Dr. Palmer. Continue NPO diet (2) Renal cell carcinoma: Qualifiers: Laterality: left Qualified Code(s): C64.2 - Malignant neoplasm of left kidney, except renal pelvis Code(s): C64.9 - Malignant neoplasm of unspecified kidney, except renal pelvis Status: Acute Assessment and Plan: 8 cm left renal mass. There is no evidence of metastasis on her CT abdomen or CT chest. Radical nephrectomy has been discussed, she will review with her medical team and determine if she wishes to proceed given her cardiac status. She will follow-up with Dr. Palmer following discharge for further discussion. Subjective Subjective Date/Time Seen: 05/13/23 08:53 Interval history: Carolina is feeling well today. Urine remains clear off CBI. Reports no issues with Tan catheter. Denies back or flank pain. No nausea, vomiting, fever, chills. Review of Systems Review of Systems: All systems reviewed & are unremarkable except as noted in HPI and below Exam Narrative: General: Awake, alert, comfortable, no acute distress HEENT: Normocephalic, atraumatic, sclerae anicteric Respiratory: Normal respiratory effort, no accessory muscle use Abdomen: Nondistended, soft, nontender : Tan catheter draining clear yellow urine with a couple tiny clots in the tubing Skin: Normal coloration, warm and dry Neurologic: No focal neuro deficits noted Psychiatric: Appropriate mood and affect, judgment and insight intact Objective Data Vital Signs Vital Signs: Vital Signs - 24 hr 05/12/23 09:37 05/12/23 09:35 05/12/23 13:53 Temperature 97.7 F Pulse Rate 61 61 Respiratory Rate 20 Blood Pressure 147/48 H Pulse Oximetry 96 Oxygen Delivery Room Air 05/12/23 21:06 05/12/23 21:34 05/13/23 06:00 Temperature 97.5 F L 97.5 F L Pulse Rate 62 61 61 Respiratory Rate 16 16 Blood Pressure 161/62 H 161/62 H Pulse Oximetry 95 95 Oxygen Delivery Intake/Output Intake/Output: Intake & Output 05/10/23 05/11/23 05/12/23 05/13/23 23:59 23:59 23:59 23:59 Intake Total 1420 1170 660 240 Output Total [id number] 4247 3108 800 Balance -81843 -6980 -1790 -560 Meds/Results Medications: Active Medications Generic Name Dose Route Start Last Admin Trade Name Israelq PRN Reason Stop Dose Admin Acetaminophen 650 mg 05/10/23 15:22 Acetaminophen 325 Mg Tablet PO Q6H PRN Mild Pain (1-3) or Fever Hydrocodone Bitart/Acetaminophen 1 tab 05/10/23 15:22 Hydrocodone/Acetaminophen (*Crx) 5-325 Mg Tablet PO Q6H PRN Pain Rated 4-6 Amlodipine Besylate 5 mg 05/10/23 09:00 05/12/23 09:37 Amlodipine Besylate 5 Mg Tablet PO 5 mg QAM JAMARCUS Administration Amoxicillin/Clavulanate Potassium 1 tablet 05/12/23 09:00 05/12/23 21:06 Amoxicillin/Clavulanate K 875-125 Mg Tab PO 05/16/23 08:59 1 tablet Q12HR JAMARCUS Administration Azithromycin 500 mg 05/12/23 21:00 05/12/23 21:06 Azithromycin 250 Mg Tablet PO 05/13/23 21:01 500 mg DAILY@2100 JAMARCUS Administration Carvedilol 25 mg 05/10/23 09:00 05/12/23 21:06 Carvedilol 25 Mg Tablet PO 25 mg Q12HR JAMARCUS Administration Dextrose 12.5 gm 05/10/23 02:16 Dextrose 50% 25 Gm/50 Ml Syringe IV PUSH PRN PRN Hypoglycemia Protocol Glucagon 1 mg 05/10/23 02:16 Glucagon For Inj 1 Mg Vial IM PRN PRN Hypoglycemia Protocol Glucose 15 gm 05/10/23 02:16 Glucose Oral Gel 15 Gm Of Glucse In 37.5 Gm Tube PO PRN PRN Hypoglycemia Protocol Dextrose 1,000 mls @ 100 mls/hr
--- NOTE | 2023-05-13 10:09 | PCPTNOTE ---
Patient declined PT stating she has a procedure scheduled for later today and would like to rest at this time. PT will continue to follow per plan of care.
--- NOTE | 2023-05-13 10:50 | PCOTNOTE ---
Patient declined any activity or treatment until after her test this afternoon.
[2023-05-13 11:29] LABS: Glucose Point of Care 88 mg/dl (65-105)
--- NOTE | 2023-05-13 14:40 | PCOTNOTE ---
Patient out of the room for testing at this time. Patient will be checked on tomorrow for therapy services.
--- NOTE | 2023-05-13 15:17 | WPDHPUPDATE1 ---
History and Physical Update Update Date/Time: 05/13/23 15:17 History and Physical has been reviewed, including an updated exam of the patient. There are NO changes in the patient's condition. Risks, benefits, and alternatives have been discussed and questions answered. Patient agrees to proceed with procedure. Proceed with flexible cystoscopy
[2023-05-13 15:38] VITALS: BP 213/98; PULSE 64; RESP 16; O2SAT 92
[2023-05-13 15:43] VITALS: BP 203/88; PULSE 60; RESP 16; O2SAT 92
[2023-05-13 15:48] VITALS: BP 210/96; PULSE 63; RESP 16; O2SAT 92
--- NOTE | 2023-05-13 15:48 | W.PM.PROC2 ---
Procedure Note - Detailed Date of Procedure 05/13/23 Pre-op Diagnosis renal cell; hematuria, AMS; CHF exac. Post-op Diagnosis Same Procedure Performed Flexible cystoscopy Surgeon Petr Palmer MD Anesthesia Local Description of Procedure Patient was taken to the operative suite correctly identified. The Tan catheter which was present was removed. She was prepped and draped usual sterile fashion. Sixteen Spanish flexible scope inserted into the bladder. There were no tumors noted. She has a little small clot which is formed and should be able to be passed. Scope was removed. I will leave the Tan out for voiding trial. This completes dictation please send a copy this to my office. Urine Output 30 Drains No Packing No Pathology None sent Complications No immediate complications Condition Stable Disposition Floor
--- NOTE | 2023-05-13 16:07 | P.PNIM_ITS ---
Progress Note: A&P Assessment and Plan (1) Gross hematuria: Code(s): R31.0 - Gross hematuria Status: Acute Assessment and Plan: patient found to have gross hematuria. Patient has known about this but is unsure about how long this has been going on. * Urology consulted * CBI discontinued 05/11. * Xarelto on hold. * Suspected cause of it being the 8 cm left renal mass. * Cystoscopy today did not reveal any tumors but did show a small clot in the bladder. * 05/12 Tan catheter removed. conduct voiding trial. (2) Renal cell carcinoma: Qualifiers: Laterality: left Qualified Code(s): C64.2 - Malignant neoplasm of left kidney, except renal pelvis Code(s): C64.9 - Malignant neoplasm of unspecified kidney, except renal pelvis Status: Acute Assessment and Plan: patient found to have a 8 cm renal mass on the left kidney on CT abdomen pelvis. No metastases noted on CT of the abdomen. * Urology recommending follow-up chest CT to evaluate for metastases. * Urology discussed options, outcomes and what to expect with the patient. * Plan to follow-up with Dr. Palmer an outpatient. * Chest CT did not show any evidence of metastases. (3) Acute exacerbation of congestive heart failure: Qualifiers: Heart failure type: unspecified Qualified Code(s): I50.9 - Heart failure, unspecified Code(s): I50.9 - Heart failure, unspecified Status: Acute Assessment and Plan: Patient has acute hypoxic respiratory failure likely due to decompensated heart failure. * 1.5 L fluid restricted diet. * Patient now on room air * Cardiology consulted. * Echocardiogram without significant abnormalities * Lasix held due to patient's worsening kidney function. She appears euvolemic. (4) Pneumonia: Code(s): J18.9 - Pneumonia, unspecified organism Status: Acute Assessment and Plan: Presentation patient found to have ground-glass opacities on CT the abdomen pelvis her presented pneumonia. * On presentation patient was hypoxic requiring oxygen supplementation. * She was started on Rocephin and azithromycin On 05/09/2023 * Patient denied ever having a cough. * She was found to have leukocytosis on presentation with a white count of 34.6. White count trending down. * 05/11 patient transition to p.o. antibiotics Augmentin and azithromycin. * PT and OT working with pt. (5) Acute hypoxic respiratory failure: Code(s): J96.01 - Acute respiratory failure with hypoxia Status: Resolved Assessment and Plan: * Acute heart failure exacerbation Versus pneumonia. resolved (6) Elevated troponin: Code(s): R79.89 - Other specified abnormal findings of blood chemistry Status: Resolved Assessment and Plan: The patient does have a elevated troponin. * Trop: 0.068, 0.071, 0.079, 0.073 * Not actively having chest pain. * Echocardiogram without significant abnormalities * Cardiology consulted. (7) CKD (chronic kidney disease) stage 3, GFR 30-59 ml/min: Qualifiers: Chronic kidney disease stage 3 subtype: stage 3a (GFR 45-59) Qualified Code(s): N18.31 - Chronic kidney disease, stage 3a Code(s): N18.30 - Chronic kidney disease, stage 3 unspecified Status: Acute Assessment and Plan: * BUN and Cr slightly above her normal. * Continue to monitor. (8) Essential hypertension: Code(s): I10 - E
--- NOTE | 2023-05-13 16:07 | PM.IMPN ---
Progress Note: A&P Assessment and Plan (1) Gross hematuria: Code(s): R31.0 - Gross hematuria Status: Acute Assessment and Plan: patient found to have gross hematuria. Patient has known about this but is unsure about how long this has been going on. Urology consulted CBI discontinued 05/11. Xarelto on hold. Suspected cause of it being the 8 cm left renal mass. Cystoscopy today did not reveal any tumors but did show a small clot in the bladder. 05/12 Tan catheter removed. conduct voiding trial. (2) Renal cell carcinoma: Qualifiers: Laterality: left Qualified Code(s): C64.2 - Malignant neoplasm of left kidney, except renal pelvis Code(s): C64.9 - Malignant neoplasm of unspecified kidney, except renal pelvis Status: Acute Assessment and Plan: patient found to have a 8 cm renal mass on the left kidney on CT abdomen pelvis. No metastases noted on CT of the abdomen. Urology recommending follow-up chest CT to evaluate for metastases. Urology discussed options, outcomes and what to expect with the patient. Plan to follow-up with Dr. Palmer an outpatient. Chest CT did not show any evidence of metastases. (3) Acute exacerbation of congestive heart failure: Qualifiers: Heart failure type: unspecified Qualified Code(s): I50.9 - Heart failure, unspecified Code(s): I50.9 - Heart failure, unspecified Status: Acute Assessment and Plan: Patient has acute hypoxic respiratory failure likely due to decompensated heart failure. 1.5 L fluid restricted diet. Patient now on room air Cardiology consulted. Echocardiogram without significant abnormalities Lasix held due to patient's worsening kidney function. She appears euvolemic. (4) Pneumonia: Code(s): J18.9 - Pneumonia, unspecified organism Status: Acute Assessment and Plan: Presentation patient found to have ground-glass opacities on CT the abdomen pelvis her presented pneumonia. On presentation patient was hypoxic requiring oxygen supplementation. She was started on Rocephin and azithromycin On 05/09/2023 Patient denied ever having a cough. She was found to have leukocytosis on presentation with a white count of 34.6. White count trending down. 05/11 patient transition to p.o. antibiotics Augmentin and azithromycin. PT and OT working with pt. (5) Acute hypoxic respiratory failure: Code(s): J96.01 - Acute respiratory failure with hypoxia Status: Resolved Assessment and Plan: Acute heart failure exacerbation Versus pneumonia. resolved (6) Elevated troponin: Code(s): R79.89 - Other specified abnormal findings of blood chemistry Status: Resolved Assessment and Plan: The patient does have a elevated troponin. Trop: 0.068, 0.071, 0.079, 0.073 Not actively having chest pain. Echocardiogram without significant abnormalities Cardiology consulted. (7) CKD (chronic kidney disease) stage 3, GFR 30-59 ml/min: Qualifiers: Chronic kidney disease stage 3 subtype: stage 3a (GFR 45-59) Qualified Code(s): N18.31 - Chronic kidney disease, stage 3a Code(s): N18.30 - Chronic kidney disease, stage 3 unspecified Status: Acute Assessment and Plan: BUN and Cr slightly above her normal. Continue to monitor. (8) Essential hypertension: Code(s): I10 - Essential (primary) hypertension Status: Acute Assessment and Plan: Continue home medications. Subjective Date/time seen: 05/13/23 16:07 Interval history: Patient doing well today with no complaints at this time. She underwent cystoscopy late this afternoon. Tan catheter was removed. Patient going to undergo a voiding trial. If patient passes voiding trial she should be able to discharge tomorrow. Exam Narrative: GENERAL: Comfortable, no ac
[2023-05-13 16:14] VITALS: BP 168/55; PULSE 62; RESP 18; TEMP 36.3; O2SAT 95
[2023-05-13 16:27] LABS: Glucose Point of Care 84 mg/dl (65-105)
[2023-05-13] MEDS: AMOXICILLIN/CLAVULANATE K 875-125 MG TAB 1 TABLET PO (20:29)
[2023-05-13] MEDS: carvediloL 25 MG TABLET PO (20:29)
[2023-05-13] MEDS: AZITHROMYCIN 250 MG TABLET 500 MG PO (20:30)
[2023-05-13 22:00] VITALS: BP 155/72; PULSE 60; RESP 16; TEMP 36.5; O2SAT 95
[2023-05-14] MEDS: LEVOTHYROXINE SODIUM 100 MCG TABLET PO (05:34)
[2023-05-14 06:00] VITALS: BP 170/54; PULSE 61; RESP 20; TEMP 36.4; O2SAT 98
[2023-05-14 07:52] LABS: Glucose Point of Care 103 mg/dl (65-105)
--- NOTE | 2023-05-14 08:19 | WPDUROPN2 ---
Progress Note: A&P Assessment and Plan (1) Gross hematuria: Code(s): R31.0 - Gross hematuria Status: Acute Assessment and Plan: Resolved. Can be discharged from Urology standpoint. (2) Left renal mass: Code(s): N28.89 - Other specified disorders of kidney and ureter Status: Acute Assessment and Plan: Will need a nephrectomy. Will need to make sure she is cleared from a cardiac standpoint. Will have her follow-up in the office in a week or so for further discussion. Subjective Subjective Date/Time Seen: 05/14/23 08:19 Post Op day: 1 (Flexible cystoscopy) Principal diagnosis: Hematuria and left renal mass Interval history: Doing well post cystoscopy. No significant findings. She is voiding without any difficulty. Can be discharged home from my standpoint and will address the renal mass as an outpatient. Review of Systems Review of Systems: All systems reviewed & are unremarkable except as noted in HPI and below Exam Const: General: cooperative and comfortable Resp: Effort & Inspection: normal respiratory effort Objective Data Vital Signs Vital Signs: Vital Signs - 24 hr 05/13/23 15:38 05/13/23 15:43 05/13/23 15:48 Temperature Pulse Rate 64 60 63 Respiratory Rate 16 16 16 Blood Pressure 213/98 H 203/88 H 210/96 H Pulse Oximetry 92 92 92 Oxygen Delivery Room Air Room Air Room Air 05/13/23 16:14 05/13/23 22:00 05/14/23 06:00 Temperature 36.3 C L 36.5 C 36.4 C L Pulse Rate 62 60 61 Respiratory Rate 18 16 20 Blood Pressure 168/55 H 155/72 H 170/54 H Pulse Oximetry 95 95 98 Oxygen Delivery Intake/Output Intake/Output: Intake & Output 05/11/23 05/12/23 05/13/23 05/14/23 23:59 23:59 23:59 23:59 Intake Total 1170 660 750 Output Total 8180 7270 830 [facility] -6980 -1790 -80 Meds/Results Medications: Active Medications Generic Name Dose Route Start Last Admin Trade Name Freq PRN Reason Stop Dose Admin Acetaminophen 650 mg 05/10/23 15:22 Acetaminophen 325 Mg Tablet PO Q6H PRN Mild Pain (1-3) or Fever Hydrocodone Bitart/Acetaminophen 1 tab 05/10/23 15:22 Hydrocodone/Acetaminophen (*Crx) 5-325 Mg Tablet PO Q6H PRN Pain Rated 4-6 Amlodipine Besylate 5 mg 05/10/23 09:00 05/13/23 09:01 Amlodipine Besylate 5 Mg Tablet PO Not Given QAM [facility] Amoxicillin/Clavulanate Potassium 1 tablet 05/12/23 09:00 05/13/23 20:29 Amoxicillin/Clavulanate K 875-125 Mg Tab PO 05/16/23 08:59 1 tablet Q12HR JAMARCUS Administration Carvedilol 25 mg 05/10/23 09:00 05/13/23 20:29 Carvedilol 25 Mg Tablet PO 25 mg Q12HR JAMARCUS Administration Dextrose 12.5 gm 05/10/23 02:16 Dextrose 50% 25 Gm/50 Ml Syringe IV PUSH PRN PRN Hypoglycemia Protocol Glucagon 1 mg 05/10/23 02:16 Glucagon For Inj 1 Mg Vial IM PRN PRN Hypoglycemia Protocol Glucose 15 gm 05/10/23 02:16 Glucose Oral Gel 15 Gm Of Glucse In 37.5 Gm Tube PO PRN PRN Hypoglycemia Protocol Dextrose 1,000 mls @ 100 mls/hr 05/10/23 02:16 Dextrose 5% 1,000 Ml IVPB PRN PRN Hypoglycemia Protocol Insulin Aspart 2 - 5 units 05/10/23 08:00 05/13/23 16:51 Insulin Aspart (*Bkc) 100 Units/Ml SUB-Q Not Given TIDWM [facility] Protocol Levothyroxine Sodium 100 mcg 05/10/23 06:30 05/14/23 05:34 Levothyroxine Sodium 100 Mcg Tablet PO 100 mcg DAILY@0630 [facility] Administration Morphine Sulfate 1 mg 05/10/23 15:22 Morphine Sulfate (*Crx) 2 Mg/Ml Inj IV PUSH Q4H PRN Pain Rated 7-10 Pravastatin Sodium 20 mg 05/10/23 09:00 05/13/23 09:00 Pravastatin Sodium 20 Mg Tablet PO Not Given DAILY [facility] Radiology Results: ITS Impressions Chest X-Ray 05/09/23 16:46 IMPRESSION: 1. Likely congestive heart failure with cardiomegaly, pulmonary vascular congestion and mild perihilar edema. Abdomen/Pelvis CT 05/09/23 18:33 IMPRESSION: 1. Complex 7.8 cm
[2023-05-14 08:41] LABS: Hematocrit 40.5 % (37.0-47.0); Hemoglobin 12.5 g/dL (12.0-15.0); Mean Corpuscular HGB Conc 30.9 g/dl (32-36); Mean Corpuscular Hemoglobin 27.9 pg (26-34); Mean Corpuscular Volume 90.4 fl (80-100); Platelet Count Result 214 k/mm3 (150-375); Red Blood Count 4.48 M/mm3 (4.2-5.4); Red Cell Distribution Width 14.7 % (11.5-14.5); White Blood Count 8.3 K/mm3 (4.5-10.0)
[2023-05-14 08:58] LABS: Alanine Aminotransferase 8 U/L (6-35); Albumin Level 3.5 g/dL (3.5-5.1); Alkaline Phosphatase 70 U/L (38-126); Anion Gap 1 mmol/L (8-16); Aspartate Amino Transferase 24 U/L (14-36); Bilirubin,Total 0.5 mg/dL (0.2-1.3); Blood Urea Nitrogen 22 mg/dL (7-17); Calcium 9.5 mg/dL (8.4-10.2); Carbon Dioxide 33 mmol/L (22-30); Chloride 107 mmol/L (98-107); Estimated CRCL calculation 55 ml/min; Estimated Glomerular Filt Rate > 60; Glucose 105 mg/dL (65-110); Potassium 3.5 mmol/L (3.4-5.0); Sodium 141 mmol/L (137-145)
[2023-05-14] MEDS: AMOXICILLIN/CLAVULANATE K 875-125 MG TAB 1 TABLET PO (09:30)
[2023-05-14] MEDS: PRAVASTATIN SODIUM 20 MG TABLET PO (09:30)
[2023-05-14] MEDS: carvediloL 25 MG TABLET PO (09:30)
--- NOTE | 2023-05-14 10:32 | P.DS_ITS ---
DS: Admitting Diagnosis Discharge Date 05/14/2023 Admitting Diagnosis Hematuria/Weakness/A/C diastolic CHF/Acute hypoxic respiratory failure DS: Discharge Diagnosis Discharge Diagnosis (1) Gross hematuria: Code(s): R31.0 - Gross hematuria Status: Acute Assessment and Plan: patient found to have gross hematuria. Patient has known about this but is unsure about how long this has been going on. * Urology consulted * CBI discontinued 05/11. * Xarelto on hold. * Suspected cause of it being the 8 cm left renal mass. * Cystoscopy today did not reveal any tumors but did show a small clot in the bladder. * 05/12 Tan catheter removed. conduct voiding trial. (2) Renal cell carcinoma: Qualifiers: Laterality: left Qualified Code(s): C64.2 - Malignant neoplasm of left kidney, except renal pelvis Code(s): C64.9 - Malignant neoplasm of unspecified kidney, except renal pelvis Status: Acute Assessment and Plan: patient found to have a 8 cm renal mass on the left kidney on CT abdomen pelvis. No metastases noted on CT of the abdomen. * Urology recommending follow-up chest CT to evaluate for metastases. * Urology discussed options, outcomes and what to expect with the patient. * Plan to follow-up with Dr. Palmer an outpatient. * Chest CT did not show any evidence of metastases. (3) Acute exacerbation of congestive heart failure: Qualifiers: Heart failure type: unspecified Qualified Code(s): I50.9 - Heart failure, unspecified Code(s): I50.9 - Heart failure, unspecified Status: Acute Assessment and Plan: Patient has acute hypoxic respiratory failure likely due to decompensated heart failure. * 1.5 L fluid restricted diet. * Patient now on room air * Cardiology consulted. * Echocardiogram without significant abnormalities * Lasix held due to patient's worsening kidney function. She appears euvolemic. (4) Pneumonia: Code(s): J18.9 - Pneumonia, unspecified organism Status: Acute Assessment and Plan: Presentation patient found to have ground-glass opacities on CT the abdomen pelvis her presented pneumonia. * On presentation patient was hypoxic requiring oxygen supplementation. * She was started on Rocephin and azithromycin On 05/09/2023 * Patient denied ever having a cough. * She was found to have leukocytosis on presentation with a white count of 34.6. White count trending down. * 05/11 patient transition to p.o. antibiotics Augmentin and azithromycin. * PT and OT working with pt. (5) Acute hypoxic respiratory failure: Code(s): J96.01 - Acute respiratory failure with hypoxia Status: Resolved Assessment and Plan: * Acute heart failure exacerbation Versus pneumonia. resolved (6) Elevated troponin: Code(s): R79.89 - Other specified abnormal findings of blood chemistry Status: Resolved Assessment and Plan: The patient does have a elevated troponin. * Trop: 0.068, 0.071, 0.079, 0.073 * Not actively having chest pain. * Echocardiogram without significant abnormalities * Cardiology consulted. (7) CKD (chronic kidney disease) stage 3, GFR 30-59 ml/min: Qualifiers: Chronic kidney disease stage 3 subtype: stage 3a (GFR 45-59) Qualified Code(s): N18.31 - Chronic kidney disease, stage 3a Code(s): N18.30 - Chronic kidney disease, stage 3 unspecified Status: Acute
--- NOTE | 2023-05-14 10:32 | PM.DS ---
DS: Admitting Diagnosis Discharge Date 05/14/2023 Admitting Diagnosis Hematuria/Weakness/A/C diastolic CHF/Acute hypoxic respiratory failure DS: Discharge Diagnosis Discharge Diagnosis (1) Gross hematuria: Code(s): R31.0 - Gross hematuria Status: Acute Assessment and Plan: patient found to have gross hematuria. Patient has known about this but is unsure about how long this has been going on. Urology consulted CBI discontinued 05/11. Xarelto on hold. Suspected cause of it being the 8 cm left renal mass. Cystoscopy today did not reveal any tumors but did show a small clot in the bladder. 05/12 Tan catheter removed. conduct voiding trial. (2) Renal cell carcinoma: Qualifiers: Laterality: left Qualified Code(s): C64.2 - Malignant neoplasm of left kidney, except renal pelvis Code(s): C64.9 - Malignant neoplasm of unspecified kidney, except renal pelvis Status: Acute Assessment and Plan: patient found to have a 8 cm renal mass on the left kidney on CT abdomen pelvis. No metastases noted on CT of the abdomen. Urology recommending follow-up chest CT to evaluate for metastases. Urology discussed options, outcomes and what to expect with the patient. Plan to follow-up with Dr. Palmer an outpatient. Chest CT did not show any evidence of metastases. (3) Acute exacerbation of congestive heart failure: Qualifiers: Heart failure type: unspecified Qualified Code(s): I50.9 - Heart failure, unspecified Code(s): I50.9 - Heart failure, unspecified Status: Acute Assessment and Plan: Patient has acute hypoxic respiratory failure likely due to decompensated heart failure. 1.5 L fluid restricted diet. Patient now on room air Cardiology consulted. Echocardiogram without significant abnormalities Lasix held due to patient's worsening kidney function. She appears euvolemic. (4) Pneumonia: Code(s): J18.9 - Pneumonia, unspecified organism Status: Acute Assessment and Plan: Presentation patient found to have ground-glass opacities on CT the abdomen pelvis her presented pneumonia. On presentation patient was hypoxic requiring oxygen supplementation. She was started on Rocephin and azithromycin On 05/09/2023 Patient denied ever having a cough. She was found to have leukocytosis on presentation with a white count of 34.6. White count trending down. 05/11 patient transition to p.o. antibiotics Augmentin and azithromycin. PT and OT working with pt. (5) Acute hypoxic respiratory failure: Code(s): J96.01 - Acute respiratory failure with hypoxia Status: Resolved Assessment and Plan: Acute heart failure exacerbation Versus pneumonia. resolved (6) Elevated troponin: Code(s): R79.89 - Other specified abnormal findings of blood chemistry Status: Resolved Assessment and Plan: The patient does have a elevated troponin. Trop: 0.068, 0.071, 0.079, 0.073 Not actively having chest pain. Echocardiogram without significant abnormalities Cardiology consulted. (7) CKD (chronic kidney disease) stage 3, GFR 30-59 ml/min: Qualifiers: Chronic kidney disease stage 3 subtype: stage 3a (GFR 45-59) Qualified Code(s): N18.31 - Chronic kidney disease, stage 3a Code(s): N18.30 - Chronic kidney disease, stage 3 unspecified Status: Acute Assessment and Plan: BUN and Cr slightly above her normal. Continue to monitor. (8) Essential hypertension: Code(s): I10 - Essential (primary) hypertension Status: Acute Assessment and Plan: Continue home medications. Plan Disposition: Home with home health and follow-up with urology with in 1 to 2 weeks DS: Summary Hospital Course Reason for hospitalization: Hematuria/Weakness/A/C diastolic CHF/Acute hypoxic respirat
[2023-05-14 11:15] LABS: Glucose Point of Care 100 mg/dl (65-105)
== END 2023-05-14 12:42 | disposition home health service (06) | DRG 686 ==
LOC: ANHED 19:50 → ANHIMU 22:42 → ANH3MEDSUR 05-12 14:44 → ANHIMU 05-15 12:39
PROVIDERS: Internal Medicine Critical Care Medicine; Urology; Admitting Provider Internal Medicine; Emergency Provider Emergency Medicine; PCP Family Medicine; Visit Provider Nurse Practitioner Family
PROC: 0TJB8ZZ Inspection of Bladder, Via Natural or Artificial Opening Endoscopic (ICD-10-PCS; CPT 52000; principal; 2023-05-13 14:00)
DX: C64.2 Malignant neoplasm of left kidney, except renal pelvis (principal); I50.33 Acute on chronic diastolic (congestive) heart failure; J96.01 Acute respiratory failure with hypoxia; J18.9 Pneumonia, unspecified organism; I13.0 Hypertensive heart and chronic kidney disease with heart failure and stage 1 through stage 4 chronic kidney disease, or unspecified chronic kidney disease; R31.0 Gross hematuria; N28.89 Other specified disorders of kidney and ureter; N18.31 Chronic kidney disease, stage 3a; I48.91 Unspecified atrial fibrillation; E03.9 Hypothyroidism, unspecified; E66.9 Obesity, unspecified; E11.22 Type 2 diabetes mellitus with diabetic chronic kidney disease; E78.2 Mixed hyperlipidemia; I49.5 Sick sinus syndrome; J98.4 Other disorders of lung; M06.9 Rheumatoid arthritis, unspecified; M81.0 Age-related osteoporosis without current pathological fracture; Z95.0 Presence of cardiac pacemaker; Z91.148 Patient's other noncompliance with medication regimen for other reason; Z86.73 Personal history of transient ischemic attack (TIA), and cerebral infarction without residual deficits; Z79.01 Long term (current) use of anticoagulants; Z20.822 Contact with and (suspected) exposure to COVID-19; Z79.84 Long term (current) use of oral hypoglycemic drugs; Z68.34 Body mass index [BMI] 34.0-34.9, adult; Z66 Do not resuscitate
CPT/HCPCS: 36415; 36600; 71046; 71250; 74178; 80048; 80053; 82805; 82948; 83880; 84443; 84484; 85025; 85027; 85610; 85730; 87637; 87641; 93005; 93306; 94640; 96365; 96366; 96375; 96376; 97161; 97165; 97530; 97535; 99285; A9270; G0378; J0456; J0696; J1940; Q9967

== ENCOUNTER 2023-05-22 13:43 | Outpatient (CLI) | payer MEDICARE, SELFPAY ==
[2023-05-22 15:43] LABS: Prothrombin Time 13.9 Seconds (11.1-14.7)
[2023-05-22 15:44] LABS: Partial Thromboplastin Time 27.4 Seconds (22.3-36.8)
== END 2023-05-22 13:44 | disposition home or self-care (01) ==
LOC: ANHSURGERY 13:49
PROVIDERS: PCP Family Medicine; Visit Provider Urology
DX: Z01.818 Encounter for other preprocedural examination (principal); N28.89 Other specified disorders of kidney and ureter
CPT/HCPCS: 36415; 85610; 85730; 86850; 86900; 86901; 87086; 87088

== ENCOUNTER 2023-05-27 08:28 | Inpatient (IN) | payer MEDICARE, SELFPAY ==
[2023-05-22 13:59] VITALS: BMI 36.5
--- NOTE | 2023-05-22 14:27 | PC.NURSE ---
Report to the Outpatient Waiting Room, entrance under the green pavilion located off [facility], at time _0600 on date __05/27/23 . Planned Procedure Time: 07 . Time changes happen often and if your time is changed the preop area will call you the afternoon before. - You and your visitor will be asked to self-screen and do not enter if you have any COVID symptoms. - A mask is optional within the hospital at this time. Patients may have clear liquids (water, carbonated beverages, clear teas, apple juice) until 3 hours prior to surgery( 4:30 AM) with a maximum of 20 ounces. - No food from midnight until time of surgery - Infants may have breast milk until 4 hours before surgery, formula 6 hours prior to surgery. - Children will be allowed to drink immediately following surgery. If applicable, please bring a bottle or sippy cup to assist with drinking. Juice, water, soda, and popsicles are readily available. For infants on formula, please bring formula the day of surgery. Pacifiers are allowed. Take the following medications with a SIP of water the morning of surgery: __CARVEDILOL,LEVOTHYROXINE DO NOT STOP ANY OF YOUR OTHER PRESCRIPTION MEDICATIONS PRIOR TO SURGERY ?EXCEPT THE FOLLOWING Medications to discontinue per physician PT AND SPOUSE STATES LAST DOSE XARELTO WAS 05/09/23 INSTRUCTED TO HOLD UNTIL AFTER SURGERY. HOLD ALL VITAMINS AND SUPPLEMENTS 3 DAYS PRE OP LAST DOSE 05/23/23 Please no make-up, nail lao, hairspray, perfume, deodorant, or body powder the day of surgery. No jewelry (including any body piercings) or valuables the day of surgery, leave them at home. Please take a shower or bath the night before, or the morning of, surgery with an antibacterial soap. Wear comfortable, loose fitting clothing. Children are encouraged to wear pajamas. - Jewelry must be removed prior to entering the operating room. Rings and piercings that are not removed may be cut off. - The hospital will not accept responsibility for valuables. - Please leave all valuables, including medications, at home the day of surgery. If you are going home after surgery, a licensed dolly driver must drive you home. - NO public transportation without another adult if you receive anesthesia. - We recommend that an adult stay with you for 24 hours following discharge. - We also recommend that you do not drive, make important decision, drink alcoholic beverages, or take any drugs that were not prescribed by your health care provider for at least 24 hours after your discharge time. Follow any additional instructions given to you from your surgeon. If you or anyone in your household have experienced Covid symptoms in the past week, please notify your surgeon or the nurse liaison at the phone number below for possible testing. VERBAL AND WRITTEN instructions given to __PATIENT AND BRENDA and asked if any additional questions and then verbalized understanding. Patient advised to call surgeon office or pre surgery nurse liaison [phone] if any additional questions.
[2023-05-22 14:52] VITALS: BP 184/65; PULSE 66; RESP 18; TEMP 36.6; O2SAT 97
[2023-05-27] VITALS (19 sets, daily range): BP systolic 108–210; BP diastolic 31–92; PULSE 55–144; RESP 14–20; TEMP 35.8–36.8; O2SAT 94–100; BMI 35.9
[2023-05-27] MEDS: LACTATED RINGERS 1,000 ML 30 ML IV CONT ×2 (07:10→11:08)
--- NOTE | 2023-05-27 07:13 | P.PNAN_ITS ---
Anes - Initial Pre Proc Eval Procedure: Operation Date: 05/27/23 07:30 Proposed Procedures p Hand-Assisted Laparoscopic Left Radical Nephrectomy - Petr Palmer MD Date/Time: 05/27/23 07:13 Surgeon: Petr Palmer MD Pre Op Diagnosis: left renal mass Patient Data Age: 82 Gender: F Height: 1.63 m Weight: 96.5 kg Last Vital Signs Temp 97.8 F 05/22/23 14:52 Pulse 66 05/22/23 14:52 Resp 18 05/22/23 14:52 BP 184/65 H 05/22/23 14:52 Pulse Ox 97 05/22/23 14:52 O2 Del Method Room Air 05/22/23 14:52 Allergies Allergy/AdvReac Type Severity Reaction Status Date / Time Sulfa (Sulfonamide Allergy Intermediate hives Verified 05/27/23 07:18 Antibiotics) colesevelam Allergy Mild hives Verified 05/27/23 07:18 atorvastatin Allergy Unknown coughing Verified 05/27/23 07:18 codeine AdvReac Unknown nausea and Verified 05/27/23 07:18 vomiting Home Medications Medication Instructions Recorded Confirmed Type amlodipine 5 mg tablet 5 mg PO HS 05/10/23 05/22/23 History carvedilol 25 mg tablet 25 mg PO BID 05/10/23 05/22/23 History glimepiride 2 mg tablet 1 mg PO DAILY 05/10/23 05/22/23 History pravastatin 20 mg tablet 20 mg PO DAILY 05/10/23 05/22/23 History rivaroxaban 20 mg tablet (Xarelto) 20 mg PO QAM 05/10/23 05/27/23 History levothyroxine 100 mcg tablet See Rx Instructions .Route 05/16/23 05/22/23 Rx .COMPLEX #100 tabs alendronate 70 mg tablet 70 mg PO WEEKLY 05/22/23 05/22/23 History cholecalciferol (vitamin D3) 25 25 mcg PO DAILY 05/22/23 05/27/23 History mcg (1,000 unit) tablet coenzyme Q10 100 mg capsule 100 mg PO DAILY 05/22/23 05/27/23 History (CoQ-10) urea 20 % topical cream 1 applic topical BID #85 grams 05/22/23 05/22/23 Rx Patient hx anesthesia problems: post op nausea/vomiting Family hx anesthesia problems: none Results Review: All pre-operative results and documents have been reviewed as part of the pre- operative evaluation. [facility] Past Medical History Medical History Adult hypothyroidism Anemia Benign reactive hypertension CKD (chronic kidney disease) stage 3, GFR 30-59 ml/min Hypertension Mixed hyperlipidemia Obesity Osteoporosis Paroxysmal atrial fibrillation Restrictive lung disease Mild restrictive lung disease noted on PFTs 2009 Rheumatoid arthritis SSS (sick sinus syndrome) Transfusion history Trochanteric bursitis Type 2 diabetes mellitus with diabetic chronic kidney disease Vitamin D deficiency Surgical History Surgical History Biventricular cardiac pacemaker in situ (2007) With generator exchange in 2018 Status post biventricular cardiac pacemaker insertion Family History Family History Mother Hypertension Heart problem Father Unknown family medical history Sibling Myocardial infarct Sibling Unknown family medical history Social History Social History Social History: Patient lives with her of almost 60 years. Her reports that they raised 2 children. She is a lifelong nonsmoker and only on rare occasion she will have a glass of wine. She does not have a history of illicit substance use. Her reports that she ambulates with a shuffling gait but does not use a walker. Code status: DNR/DNI (per patient and request) Surrogate decision maker: Smoking status: Never smoker Second hand tobacco smoke exposure: No Alcohol intake: current Drinks per week: 1 Alcohol use details: occassionally Substance use: never Substance use type: does not use Do You Feel Safe in your Home?: Yes Lack of Transportation: No Lack of Food: Never True Current Housing: I Have Housing Concerned About Future Housing: No Difficulty Paying Gas/Electric Bills: No Difficulty Paying for Meds: No Currently Unemployed: No Education: High School Diploma/GED Difficulty w/ Childcare or Family Care: No Living arrangements: with family Occupation/Education: retired Gender identity (if verbalized by the patient): Female Sexual Orientation (if Verbalized by the Patient): Straight or Heterosexual Spiritual care concerns: No Anes - Eval Final PreProcedure Day of Procedure 05/27/23 07:13 Patient weight: obese Heart: regular rate and rhythm Lungs: clear to auscultation Airway: Mallampati scale class II and special considerations (Upper perm implants. ) Neurological: alert and oriented Last oral intake: >/= 8 hours ASA classification: III Emergent: no Anesthetic plan: proceed Anesthesia type and monitoring: general and standard monitoring Other findings: Pt w pacemaker for SSS placed 2007. Results Review: All pre-operative results and documents have been reviewed as part of the pre- operative evaluation. Informed Consent: The patient's anesthetic plan and its attendant risks and benefits were discussed with the patient/family/POA. Questions were solicited and answers provided to the satisfaction of the patient/family/POA.
[2023-05-27 07:17] LABS: Glucose Point of Care 94 mg/dl (65-105)
--- NOTE | 2023-05-27 07:27 | PM.IMHP ---
H&P: HPI History of Present Illness Date/Time: 05/27/23 07:27 Chief Complaint: Left renal mass Narrative: 82 year old female found to have an 8-9 cm left renal mass. Has opted for LEXI left radical nephrectomy. Risks and complications were discussed in the office. Review of Systems Review of Systems: All systems reviewed & are unremarkable except as noted in HPI and below PMFSH Past Medical History Medical History Adult hypothyroidism Anemia Benign reactive hypertension CKD (chronic kidney disease) stage 3, GFR 30-59 ml/min Hypertension Mixed hyperlipidemia Obesity Osteoporosis Paroxysmal atrial fibrillation Restrictive lung disease Mild restrictive lung disease noted on PFTs 2009 Rheumatoid arthritis SSS (sick sinus syndrome) Transfusion history Trochanteric bursitis Type 2 diabetes mellitus with diabetic chronic kidney disease Vitamin D deficiency Surgical History Surgical History Biventricular cardiac pacemaker in situ (2007) With generator exchange in 2018 Status post biventricular cardiac pacemaker insertion Family History Family History Mother Hypertension Heart problem Father Unknown family medical history Sibling Myocardial infarct Sibling Unknown family medical history Social History Social History Social History: Patient lives with her of almost 60 years. Her reports that they raised 2 children. She is a lifelong nonsmoker and only on rare occasion she will have a glass of wine. She does not have a history of illicit substance use. Her reports that she ambulates with a shuffling gait but does not use a walker. Code status: DNR/DNI (per patient and request) Surrogate decision maker: Smoking status: Never smoker Second hand tobacco smoke exposure: No Alcohol intake: current Drinks per week: 1 Alcohol use details: occassionally Substance use: never Substance use type: does not use Do You Feel Safe in your Home?: Yes Lack of Transportation: No Lack of Food: Never True Current Housing: I Have Housing Concerned About Future Housing: No Difficulty Paying Gas/Electric Bills: No Difficulty Paying for Meds: No Currently Unemployed: No Education: High School Diploma/GED Difficulty w/ Childcare or Family Care: No Living arrangements: with family Occupation/Education: retired Gender identity (if verbalized by the patient): Female Sexual Orientation (if Verbalized by the Patient): Straight or Heterosexual Spiritual care concerns: No Meds Home Medications and Allergies Home Medications Medication Instructions Recorded Confirmed Type amlodipine 5 mg tablet 5 mg PO HS 05/10/23 05/22/23 History carvedilol 25 mg tablet 25 mg PO BID 05/10/23 05/22/23 History glimepiride 2 mg tablet 1 mg PO DAILY 05/10/23 05/22/23 History pravastatin 20 mg tablet 20 mg PO DAILY 05/10/23 05/22/23 History rivaroxaban 20 mg tablet (Xarelto) 20 mg PO QAM 05/10/23 05/27/23 History levothyroxine 100 mcg tablet See Rx Instructions .Route 05/16/23 05/22/23 Rx .COMPLEX #100 tabs alendronate 70 mg tablet 70 mg PO WEEKLY 05/22/23 05/22/23 History cholecalciferol (vitamin D3) 25 25 mcg PO DAILY 05/22/23 05/27/23 History mcg (1,000 unit) tablet coenzyme Q10 100 mg capsule 100 mg PO DAILY 05/22/23 05/27/23 History (CoQ-10) urea 20 % topical cream 1 applic topical BID #85 grams 05/22/23 05/22/23 Rx Allergies Allergy/AdvReac Type Severity Reaction Status Date / Time Sulfa (Sulfonamide Allergy Intermediate hives Verified 05/27/23 07:18 Antibiotics) colesevelam Allergy Mild hives Verified 05/27/23 07:18 atorvastatin Allergy Unknown coughing Verified 05/27/23 07:18 codeine AdvReac Unknown nausea and Verified 05/27/23 07:18 vomiting Vital Signs Vital Signs - 24 hr 05/27/23 06:00 Temperature 36.8 C Pulse Rate 69 Respiratory Rate 16 Blood Pressure 173/59 H Pulse Oximetry 96 Oxygen Delivery Room Air Exam Const: General: cooperative and comfortable Eyes: General: appearance normal, both eyes and all related structures Neck: Neck: normal visual inspection Chest: Chest palpation & inspection: normal inspection of the chest Resp: Effort & Inspection: normal respiratory effort Cardio: Rate: regular rate Rhythm: regular rhythm GI: Inspection: normal to inspection Assessment and Plan Assessment and plan (1) Left renal mass: Code(s): N28.89 - Other specified disorders of kidney and ureter Status: Acute Assessment and Plan: Proceed with LEXI left radical nephrectomy.
--- NOTE | 2023-05-27 07:30 | WPDHPUPDATE1 ---
History and Physical Update Update Date/Time: 05/27/23 07:30 History and Physical has been reviewed, including an updated exam of the patient. There are NO changes in the patient's condition. Risks, benefits, and alternatives have been discussed and questions answered. Patient agrees to proceed with procedure.
[2023-05-27] MEDS: ceFAZolin 2 GM/D5W 50 ML 2 GM/50 ML BAG IVPB (07:40)
--- NOTE | 2023-05-27 10:10 | SUR.OPER ---
POSITIONING REMAINS UNCHANGED.
[2023-05-27] MEDS: BUPivacaine HCL 0.5% PF 30 ML VIAL INFILTRATE (10:34)
--- NOTE | 2023-05-27 10:44 | W.PM.PROC2 ---
Procedure Note - Detailed Date of Procedure 05/27/23 Pre-op Diagnosis left renal mass Post-op Diagnosis Same Procedure Performed Hand assisted laparoscopic leftl nephrectomy with sparing of left adrenal gland Surgeon Petr Palmer MD Anesthesia General Description of Procedure Patient is taken to the operative suite correctly identified. Once anesthesia was obtained she was placed in the decubitus position with the left side. All pressure points were padded. Tan catheter had been placed. Incision was made just lateral to the umbilicus. This was carried down to rectus fascia. This was incised. The peritoneum was entered. Hand port was placed. Abdomen was insufflated. She had some adhesions which were taken down. Colon was reflected. Ovarian vein was traced up to its insertion into an accessory renal vein. This renal accessory vein was then transected using an endovascular stapler. There was also an accessory artery which was clipped. The ureter was traced up to the hilar area in addition. The kidney was lifted off of the psoas muscle. Patient had a large dilated renal vein with a tortuous artery superior to it. The adrenal vein was transected. The adrenal vein was teased off of the kidney. Renal artery was clipped 3 times proximally and twice distally. Endovascular stapler was used across the renal vein. The remaining attachments were then taken. There was good hemostasis noted. I did place some to seal along the bed of the adrenal gland as well as the hilar area. Surgicel was then placed over this. All lap count, needle count, sponge counts were correct. Specimen was brought out through the midline incision. Rectus fascia was closed using double looped Prolene. Skin was closed using subcuticular stitches. Patient was taken recovery stable condition. This completes dictation. Please send a copy op note to my office. Drains No Packing No Pathology Yes Complications No immediate complications Condition Stable Disposition PACU
[2023-05-27] MEDS: fentaNYL CITRATE INJ (*CRX) 100 MCG/2 ML VIAL 25 MCG IV PUSH ×8 (11:28→12:19)
[2023-05-27 11:52] LABS: Glucose Point of Care 168 mg/dl (65-105)
[2023-05-27] MEDS: LABETALOL HCL INJ 100 MG/20 ML VIAL IV PUSH (12:42)
[2023-05-27] MEDS: HYDROmorphone HCL INJ (*CRX) 1 MG/ML SYR 0.25 MG IV PUSH ×2 (12:51→13:24)
--- NOTE | 2023-05-27 14:27 | ADMGEN ---
This patient, Carolina De Anda, was admitted to 3 Med Surg Room 316-01. Patient/family oriented to hospital policies and general routines including ID bracelet, bed and alarms, visiting hours, pain management, procedures, bathroom and other care routines, personal items, smoking policy, room service/diet, and visiting hours. Information on how to activate the Rapid Response Team has been discussed. Patient/Family are encouraged to report perceived risks to care and to ask questions if they do not understand what they are told or what they should do.
[2023-05-27] MEDS: DEXTROSE 5%/LACTATED RINGERS 1,000 ML 150 ML IV CONT (14:39)
[2023-05-27] MEDS: ceFAZolin 1 GM/NS 50 ML 1 GM/50 ML BAG IVPB (16:42)
[2023-05-27] MEDS: carvediloL 25 MG TABLET PO (16:42)
[2023-05-27] MEDS: DOCUSATE SODIUM 100 MG CAPSULE PO (16:43)
[2023-05-27] MEDS: amLODIPine BESYLATE 5 MG TABLET PO ×2 (16:43→20:50)
[2023-05-27] MEDS: HYDROmorphone HCL INJ (*CRX) 1 MG/ML SYR 0.5 MG IV PUSH ×2 (16:53→20:53)
--- NOTE | 2023-05-27 17:11 | P.CONS_ITS ---
Assessment and Plan Assessment and plan (1) Left renal mass: Code(s): N28.89 - Other specified disorders of kidney and ureter Status: Acute Assessment and Plan: Postoperative day 0 status post hand assisted laparoscopic left nephrectomy with sparing of left adrenal gland. Suspected renal cell carcinoma; follow-up pathology report. Wound care, pain control, and DVT prophylaxis deferred to Dr. Palmer. (2) Hypertension: Code(s): I10 - Essential (primary) hypertension Status: Acute Assessment and Plan: Blood pressures have been running consistently in the 180s systolic since surgery. Evening amlodipine and carvedilol will be given early with close monitoring of blood pressures. (3) Type 2 diabetes mellitus: Code(s): E11.9 - Type 2 diabetes mellitus without complications Status: Acute Assessment and Plan: Resume glimepiride once tolerating an adequate diet. Initiate sliding scale insulin, Accu-Cheks, and hypoglycemic protocol. (4) Paroxysmal atrial fibrillation: Code(s): I48.0 - Paroxysmal atrial fibrillation Status: Acute Assessment and Plan: Currently sounds to be in normal sinus rhythm. Resume Xarelto for stroke prophylaxis when okay with Dr. Palmer. (5) Hypothyroidism: Code(s): E03.9 - Hypothyroidism, unspecified Status: Acute Assessment and Plan: Continue levothyroxine; recent TSH was within normal limits. Plan Thank you for allowing us to participate in this patient's care. Please do not hesitate to contact us with any questions. [facility] Data of Consult Date/Time: 05/27/23 18:00 Requesting Physician: Petr Palmer MD Consult Narrative Reason for consult: Medical management. Narrative: This is an 82-year-old female with multiple medical problems including history of stroke, sick sinus syndrome status post pacemaker implantation, paroxysmal atrial fibrillation on chronic anticoagulation, hypertension, congestive heart failure, chronic kidney disease, mild restrictive lung disease, hypothyroidism, rheumatoid arthritis, and type 2 diabetes mellitus the hospitalist service has been consulted for help managing her medical conditions postoperatively. She was recently found to have a left renal mass and underwent hand assisted laparoscopic left nephrectomy with sparing of left adrenal gland per Dr. Palmer today. Her surgery was performed under general anesthesia with no immediate complications documented. Postoperatively her blood pressures have been running high with the most recent reading being in the 180s over 60s. She is otherwise doing quite well and has minimal if any discomfort. Her appetite is not great however and she has some mild nausea. She denies fever, chills, sweats, chest pain, shortness a breath, and vomiting. Review of Systems Review of Systems: 12 systems were reviewed and are negativ e except for as per HPI. [facility] Past Medical History Medical History (Updated 05/27/23 @ 17:21 by Palma Loja PA-C) Anemia Chronic anticoagulation Chronic kidney disease Hypertension Hypothyroidism Mixed hyperlipidemia Obesity Osteoporosis Paroxysmal atrial fibrillation Restrictive lung disease Mild restrictive lung disease noted on PFTs 2009 Rheumatoid arthritis Sick sinus syndrome Type 2 diabetes mellitus Vitamin D deficiency Surgical History Surgical History (Updated 05/27/23 @ 17:18 by Palma Loja PA-C) History of cholecystectomy History of cystoscopy (04/2023) History of left nephrectomy (05/27/23) Hand assisted laparoscopic left nephrectomy with sparing of left adrenal gland per Dr. Palmer. History of partial thyroidectomy History of permanent cardiac pacemaker placement (2007) Family History Family History Mother Hypertension Heart problem Father Unknown family medical history Sibling Myocardial infarct Sibling Unknown family medical history Social History Social History (Updated 05/27/23 @ 17:26 by Palma Loja PA-C) Social History: Surrogate medical decision maker: Yoan De Anda, spouse. Code status: Full code. Smoking status: Never smoker Second hand tobacco smoke exposure: No Alcohol intake: never Drinks per week: 1 Alcohol use details: occassionally Substance use: never Substance use type: does not use Do You Feel Safe in your Home?: Yes Lack of Transportation: No Lack of Food: Never True Current Housing: Decline to Answer Concerned About Future Housing: No Difficulty Paying Gas/Electric Bills: No Difficulty Paying for Meds: No Currently Unemployed: No Education: Don't Know Difficulty w/ Childcare or Family Care: No Living arrangements: with family Additional living arrangements comments: Lives with in [place]. They have been for over 60 years and have 2 children. Occupation/Education: retired Spiritual care concerns: No Meds Home Medications and Allergies Home Medications Medication Instructions Recorded Confirmed Type amlodipine 5 mg tablet 5 mg PO HS 05/10/23 05/22/23 History carvedilol 25 mg tablet 25 mg PO BID 05/10/23 05/22/23 History glimepiride 2 mg tablet 1 mg PO DAILY 05/10/23 05/22/23 History pravastatin 20 mg tablet 20 mg PO DAILY 05/10/23 05/22/23 History rivaroxaban 20 mg tablet (Xarelto) 20 mg PO QAM 05/10/23 05/27/23 History levothyroxine 100 mcg tablet See Rx Instructions .Route 05/16/23 05/22/23 Rx .COMPLEX #100 tabs alendronate 70 mg tablet 70 mg PO WEEKLY 05/22/23 05/22/23 History cholecalciferol (vitamin D3) 25 25 mcg PO DAILY 05/22/23 05/27/23 History mcg (1,000 unit) tablet coenzyme Q10 100 mg capsule 100 mg PO DAILY 05/22/23 05/27/23 History (CoQ-10) urea 20 % topical cream 1 applic topical BID #85 grams 05/22/23 05/22/23 Rx Allergies Allergy/AdvReac Type Severity Reaction Status Date / Time Sulfa (Sulfonamide Allergy Intermediate hives Verified 05/27/23 14:28 Antibiotics) colesevelam Allergy Mild hives Verified 05/27/23 14:28 atorvastatin Allergy Unknown coughing Verified 05/27/23 14:28 codeine AdvReac Unknown nausea and Verified 05/27/23 14:28 vomiting Vital Signs Vital Signs - 24 hr 05/27/23 06:00 05/27/23 11:08 05/27/23 11:20 Temperature 98.2 F 96.5 F L Pulse Rate 69 84 78 Respiratory Rate 16 20 16 Blood Pressure 173/59 H 145/55 H 121/45 L Pulse Oximetry 96 100 100 Oxygen Delivery Room Air Simple Face Mask Simple Face Mask Oxygen Flow Rate 8 8 05/27/23 11:35 05/27/23 11:50 05/27/23 12:05 Temperature 98.1 F Pulse Rate 64 69 77 Respiratory Rate 20 17 19 Blood Pressure 108/31 L 173/53 H 177/67 H Pulse Oximetry 100 96 100 Oxygen Delivery Simple Face Mask Room Air Nasal Cannula Oxygen Flow Rate 8 2 05/27/23 12:20 05/27/23 12:42 05/27/23 12:35 Temperature Pulse Rate 59 L 144 H 138 H Respiratory Rate 17 16 Blood Pressure 180/55 H 182/89 H Pulse Oximetry 95 98 Oxygen Delivery Nasal Cannula Nasal Cannula Oxygen Flow Rate 2 2 05/27/23 13:05 05/27/23 13:20 05/27/23 12:50 Temperature Pulse Rate 107 H 105 H 115 H Respiratory Rate 19 20 18 Blood Pressure 145/87 H 165/86 H 147/92 H Pulse Oximetry 97 95 98 Oxygen Delivery Nasal Cannula Nasal Cannula Nasal Cannula Oxygen Flow Rate 2 2 2 05/27/23 13:50 05/27/23 13:56 05/27/23 14:26 Temperature 97.0 F L 97.7 F 97.0 F L Pulse Rate 60 55 L 59 L Respiratory Rate 14 14 16 Blood Pressure 180/59 H 180/70 H 186/70 H Pulse Oximetry 94 96 97 Oxygen Delivery Oxygen Flow Rate 05/27/23 15:26 05/27/23 16:42 Temperature 97.2 F L Pulse Rate 60 60 Respiratory Rate 16 Blood Pressure 180/56 H Pulse Oximetry 98 Oxygen Delivery Oxygen Flow Rate Exam Narrative: General: Mildly ill-appearing female sitting up in bed in no acute distress. Weight: 94.8 kg. BMI: 35.9. HEENT: PERRL, EOMI. Sclera anicteric. Tacky mucous membranes. Neck: Supple. No JVD. Respiratory: Lungs are clear to auscultation bilaterally. Cardiovascular: Regular rate and rhythm with S1-S2. Gastrointestinal: Abdomen is soft and nondistended with hypoactive bowel sounds. Surgical dressing is clean, dry, and intact. Genitourinary: Tan catheter contains approximately 400 mL of clear yellow urine. Skin: Warm and dry. No rash or lesions on limited exam. Extremities: No cyanosis or clubbing. 2+ luis ankle edema which he states is chronic. Mild edema of the hands as well. Radial and pedal pulses intact. Neurological: Alert. Cranial nerves 2-12 are grossly intact. No gross focal deficits to casual conversation. Psychiatric: Pleasant and cooperative with appropriate mood and flat affect.
[2023-05-28] VITALS (9 sets, daily range): BP systolic 135–163; BP diastolic 51–63; PULSE 60–69; RESP 16–20; TEMP 36.1–36.7; O2SAT 94–98; BMI 36.6
[2023-05-28] MEDS: DEXTROSE 5%/LACTATED RINGERS 1,000 ML 100 ML IV CONT ×2 (00:07→16:58)
[2023-05-28] MEDS: ceFAZolin 1 GM/NS 50 ML 1 GM/50 ML BAG IVPB ×2 (00:10→08:42)
[2023-05-28 00:17] LABS: Glucose Point of Care 192 mg/dl (65-105)
[2023-05-28] MEDS: LEVOTHYROXINE SODIUM 100 MCG TABLET PO (05:52)
[2023-05-28] MEDS: HYDROcodone/acetaminophen (*CRX) 5-325 MG TABLET 1 TAB PO ×2 (06:21→10:39)
[2023-05-28 06:52] LABS: Basophils Percent Auto 0.2 % (0.2-1.2); Immature Granulocyte Absolute 0.05 K/mm3 (0.00-0.031); Immature Granulocyte Percent A 0.4 % (0-0.5); Lymphocytes Absolute Auto 1.55 K/mm3 (0.9-3.2); Lymphocytes Percent Auto 12.7 % (18.3-44.2); Mean Corpuscular HGB Conc 30.6 g/dl (32-36); Mean Corpuscular Volume 91.6 fl (80-100); Mean Platelet Volume 10.4 fl (7.4-10.4); Monocytes Absolute Auto 1.4 K/mm3 (0.1-0.6); Monocytes Percent Auto 11.3 % (2.6-8.5); Neutrophils Absolute Auto 9.2 K/mm3 (1.3-6.7); Neutrophils Percent Auto 75.4 % (45.5-73.1); Platelet Count Result 279 k/mm3 (150-375); Red Blood Count 3.93 M/mm3 (4.2-5.4); Red Cell Distribution Width 15.2 % (11.5-14.5); White Blood Count 12.2 K/mm3 (4.5-10.0)
[2023-05-28 07:10] LABS: Anion Gap 6 mmol/L (4-12); Blood Urea Nitrogen 12 mg/dL (7-17); Calcium 8.6 mg/dL (8.4-10.2); Carbon Dioxide 25 mmol/L (22-30); Chloride 105 mmol/L (98-107); Estimated CRCL calculation 49 ml/min; Estimated Glomerular Filt Rate 60; Glucose 137 mg/dL (65-110); Magnesium 1.9 mg/dL (1.6-2.3); Potassium 4.1 mmol/L (3.4-5.0); Sodium 136 mmol/L (137-145)
[2023-05-28 07:42] LABS: Glucose Point of Care 126 mg/dl (65-105)
--- NOTE | 2023-05-28 08:37 | PM.IMPN ---
Progress Note: A&P Assessment and Plan (1) Left renal mass: Code(s): N28.89 - Other specified disorders of kidney and ureter Status: Acute Assessment and Plan: Underwent LEXI left radical nephrectomy with sparing of left adrenal gland on 05/27/[address] Palmer. Tolerated procedure well. Pain is reasonably controlled today. Pathology is pending, will be reviewed with patient by Dr. Palmer. Continue Tan catheter at this time. 05/27: PT OT consult and recs are appreciated Up out of bed to chair during the day Incentive spirometry ordered Pain management and Tan management per surgery Speech evaluation Monitor right upper arm and hand swelling from recent IV infiltration. Should this worsen or pain be associated with the swelling then will proceed with right upper arm ultrasound to rule out DVT. Subjective Date/time seen: 05/28/23 08:37 Interval history: HPI obtained from consult, This is an 82-year-old female with multiple medical problems including history of stroke, sick sinus syndrome status post pacemaker implantation, paroxysmal atrial fibrillation on chronic anticoagulation, hypertension, congestive heart failure, chronic kidney disease, mild restrictive lung disease, hypothyroidism, rheumatoid arthritis, and type 2 diabetes mellitus the hospitalist service has been consulted for help managing her medical conditions postoperatively.? Interval history: 05/27: Patient is seen today in bed in no acute distress. and son are at the bedside. The patient reports having difficulty with swallowing her food this morning. She states this is a chronic issue for her and food gets stuck in her throat. I told her we could have speech do a formal evaluation of her swallow and if they recommend a barium study we could arrange this outpatient given her recent surgery. Patient is agreeable to speech evaluation. We also discussed her right arm and hand swelling after an IV infiltration. I instructed her to keep it elevated on a pillow. She says the swelling has already gone down and there is no pain or tenderness. If swelling worsens or pain results then we would need to get an US to r/o DVT. She otherwise reports intermittent sharp pains in her abdomen that sound like gas pain. I spoke with her about working with therapy and getting up and out of bed today. I also told her I would be ordering an incentive spirometer. Family and patient were satisfied with plan of care and have no further questions at this time. Review of Systems Review of Systems: All systems reviewed & are unremarkable except as noted in HPI and below Exam Narrative: General: well appearing, well developed, well nourished, appears stated age. HEENT: normocephalic, atraumatic. Mucous membranes moist. EOMI, PERRLA, bilateral sclera anicteric, no conjunctival injection. Neck supple without JVD, lymphadenopathy, or bruit. Respiratory: clear to auscultation with diminished bases bilaterally. No rales/rhonic/wheezes. Cardiovascular: Regular rate and rhythm, normal S1-S2 upon auscultation. No murmurs, rubs, or clicks. PMI is nondisplaced, capillary re-fill less than 3 second. Abdomen: Soft, round, no pulsatile masses, non-distended and moderately tender. No rebound, no guarding. No CVA tenderness, no hepatosplenomegaly. Bowel sounds hypoactive to RLQ, LUQ, LLQ quadrants. No high pitch or tinkling sounds, resonant to percussion. Extremities: No cyanosis, clubbing, or edema present. Pulses are palpable 2/2. Active ROM to all four extremities. Neuro: Alert and orientated x 4. PERRLA. Cranial nerves 2-12 intact without focal deficit. Skin: Warm, dry, and intact, without rash, erythema, or lesion. Lines: Incisions: abdominal incision with lap sites are well approximated Psych: pleasant, cooperative, normal speech, normal affect, no hallucinations, no dysarthria Objective Data Vital Signs Vital Signs: Vital Signs - 24 hr 05/27/23 11:08 05/27/23 11:20 05/27/23 11:35 Temperature 96.5 F L 98.1 F Pulse Rate 84 78 64 Respiratory Rate 20 16 20 Blood Pressure 145/55 H 121/45 L 108/31 L Pulse Oximetry 100 100 100 Oxygen Delivery Simple Face Mask Simple Face Mask Simple Face Mask Oxygen Flow Rate 8 8 8 05/27/23 11:50 05/27/23 12:05 05/27/23 12:20 Temperature Pulse Rate 69 77 59 L Respiratory Rate 17 19 17 Blood Pressure 173/53 H 177/67 H 180/55 H Pulse Oximetry 96 100 95 Oxygen Delivery Room Air Nasal Cannula Nasal Cannula Oxygen Flow Rate 2 2 05/27/23 12:42 05/27/23 12:35 05/27/23 13:05 Temperature Pulse Rate 144 H 138 H 107 H Respiratory Rate 16 19 Blood Pressure 182/89 H 145/87 H Pulse Oximetry 98 97 Oxygen Delivery Nasal Cannula Nasal Cannula Oxygen Flow Rate 2 2 05/27/23 13:20 05/27/23 12:50 05/27/23 13:50 Temperature 97.0 F L Pulse Rate 105 H 115 H 60 Respiratory Rate 20 18 14 Blood Pressure 165/86 H 147/92 H 180/59 H Pulse Oximetry 95 98 94 Oxygen Delivery Nasal Cannula Nasal Cannula Oxygen Flow Rate 2 2 05/27/23 13:56 05/27/23 14:26 05/27/23 15:26 Temperature 97.7 F 97.0 F L 97.2 F L Pulse Rate 55 L 59 L 60 Respiratory Rate 14 16 16 Blood Pressure 180/70 H 186/70 H 180/56 H Pulse Oximetry 96 97 98 Oxygen Delivery Oxygen Flow Rate 05/27/23 16:42 05/27/23 20:35 05/27/23 23:26 Temperature 97.8 F 97.7 F Pulse Rate 60 61 60 Respiratory Rate 20 18 Blood Pressure 210/84 H 180/63 H Pulse Oximetry 98 96 Oxygen Delivery Oxygen Flow Rate 05/28/23 03:26 05/28/23 07:26 Temperature 98.1 F 97.6 F Pulse Rate 60 61 Respiratory Rate 18 18 Blood Pressure 147/63 H 137/51 L Pulse Oximetry 96 94 Oxygen Delivery Oxygen Flow Rate Intake/Output Intake/Output: Intake & Output 05/25/23 05/26/23 05/27/23 05/28/23 23:59 23:59 23:59 23:59 Intake Total 1300 300 Output Total 250 1450 Balance 1050 -1150 Meds/Results Medications: Active Medications Generic Name Dose Route Start Last Admin Trade Name Freq PRN Reason Stop Dose Admin Hydrocodone Bitart/Acetaminophen 1 tab 05/28/23 05:00 05/28/23 06:21 Hydrocodone/Acetaminophen (*Crx) 5-325 Mg Tablet PO 1 tab Q4H PRN Administration Pain Rated 1-3 Hydrocodone Bitart/Acetaminophen 2 tab 05/28/23 05:00 Hydrocodone/Acetaminophen (*Crx) 5-325 Mg Tablet PO Q4H PRN Pain Rated 4-6 Amlodipine Besylate 5 mg 05/27/23 21:00 05/27/23 20:50 Amlodipine Besylate 5 Mg Tablet PO 5 mg HS JAMARCUS Administration Carvedilol 25 mg 05/27/23 17:00 05/27/23 16:42 Carvedilol 25 Mg Tablet PO 25 mg BID JAMARCUS Administration Dextrose 12.5 gm 05/27/23 17:24 Dextrose 50% 25 Gm/50 Ml Syringe IV PUSH PRN PRN Hypoglycemia Protocol Docusate Sodium 100 mg 05/27/23 17:00 05/27/23 16:43 Docusate Sodium 100 Mg Capsule PO 100 mg BID JAMARCUS Administration Glimepiride 1 mg 05/28/23 08:00 Glimepiride 1 Mg Tablet PO DAILY@0800 JAMARCUS Glucagon 1 mg 05/27/23 17:24 Glucagon For Inj 1 Mg Vial IM PRN PRN Hypoglycemia Protocol Glucose 15 gm 05/27/23 17:24 Glucose Oral Gel 15 Gm Of Glucse In 37.5 Gm Tube PO PRN PRN Hypoglycemia Protocol Hydromorphone HCl 0.5 mg 05/27/23 13:41 05/27/23 20:53 Hydromorphone Hcl Inj (*Crx) 1 Mg/Ml Syr IV PUSH 0.5 mg Q4H PRN Administration Pain Rated 7-10 Dextrose/Lactated Ringer's 1,000 mls @ 150 mls/hr 05/27/23 13:41 05/28/23 00:07 Dextrose 5%/Lactated Ringers IV CONT 100 mls/hr .Q6H40M JAMARCUS Administration Dextrose 1,000 mls @ 100 mls/hr 05/27/23 17:24 Dextrose 5% 1,000 Ml IVPB PRN PRN Hypoglycemia Protocol Insulin Aspart 2 - 5 units 05/28/23 08:00 Insulin Aspart (*Bkc) 100 Units/Ml SUB-Q TIDWM [facility] Protocol Insulin Aspart 1 - 2 units 05/27/23 21:00 05/27/23 21:00 Insulin Aspart (*Bkc) 100 Units/Ml SUB-Q Not Given HS [facility] [place] Protocol Levothyroxine Sodium 100 mcg 05/28/23 06:30 05/28/23 05:52 Levothyroxine Sodium 100 Mcg Tablet PO 100 mcg DAILY@0630 JAMARCUS Administration Naloxone HCl 0.1 mg 05/27/23 13:41 Naloxone Hcl 0.4 Mg/Ml Vial IV PUSH Q2M PRN Opiate Reversal Ondansetron HCl 4 mg 05/27/23 13:41 Ondansetron Inj 4 Mg/2 Ml Vial IV PUSH Q6H PRN Nausea And Vomiting Pravastatin Sodium 20 mg 05/28/23 09:00 Pravastatin Sodium 20 Mg Tablet PO DAILY JAMARCUS Labs Labs: Laboratory Results - last 24 hr 05/27/23 05/27/23 05/28/23 11:49 20:36 06:27 WBC 12.2 H RBC 3.93 L Hgb 11.0 L Hct 36.0 L MCV 91.6 MCH 28.0 MCHC 30.6 L RDW 15.2 H Plt Count 279 MPV 10.4 Immature Gran % (Auto) 0.4 Neut % (Auto) 75.4 H Lymph % (Auto) 12.7 L [place] % (Auto) 11.3 H Eos % (Auto) 0.0 Baso % (Auto) 0.2 Lymph # (Auto) 1.55 [place] # (Auto) 1.4 H Eos # (Auto) 0.0 Baso # (Auto) 0.0 Abs Immat Gran (auto) 0.05 H Absolute Neuts (auto) 9.2 H Absolute Nucleated RBC 0.000 Nucleated RBC % 0.0 Sodium 136 L Potassium 4.1 Chloride 105 Carbon Dioxide 25 Anion Gap 6 L BUN 12 D Creatinine 0.90 Estim Creat Clear Calc 49 Estimated GFR 60 Glucose 137 H POC Capillary Glucose 168 H 192 H Calcium 8.6 Magnesium 1.9 05/28/23 07:28 WBC RBC Hgb Hct MCV MCH MCHC RDW Plt Count MPV Immature Gran % (Auto) Neut % (Auto) Lymph % (Auto) [place] % (Auto) Eos % (Auto) Baso % (Auto) Lymph # (Auto) [place] # (Auto) Eos # (Auto) Baso # (Auto) Abs Immat Gran (auto) Absolute Neuts (auto) Absolute Nucleated RBC Nucleated RBC % Sodium Potassium Chloride Carbon Dioxide Anion Gap BUN Creatinine Estim Creat Clear Calc Estimated GFR Glucose POC Capillary Glucose 126 H Calcium Magnesium
[2023-05-28] MEDS: DOCUSATE SODIUM 100 MG CAPSULE PO ×2 (08:42→16:50)
[2023-05-28] MEDS: carvediloL 25 MG TABLET PO ×2 (08:42→16:49)
[2023-05-28] MEDS: PRAVASTATIN SODIUM 20 MG TABLET PO (08:43)
[2023-05-28] MEDS: GLIMEPIRIDE 1 MG TABLET PO (08:43)
--- NOTE | 2023-05-28 09:59 | P.PNAN_ITS ---
Anes - Prog Note Post-Op Date/Time: 05/28/23 09:59 Cardiovascular status: normal Respiratory status: normal Airway patency: baseline Mental status: baseline Post-Op hydration status: normal Vital Signs: Last Vital Signs Temp 36.4 C 05/28/23 07:26 Pulse 60 05/28/23 08:42 Resp 18 05/28/23 07:26 BP 137/51 L 05/28/23 07:26 Pulse Ox 94 05/28/23 07:26 O2 Del Method Nasal Cannula 05/27/23 13:20 O2 Flow Rate 2 05/27/23 13:20 Pain Score (VAS): 05/03 I/O: Intake & Output 05/27/23 05/28/23 05/28/23 23:59 07:59 15:59 Intake Total 1050 350 240 Output Total 1450 Balance 1050 -1100 240 Laboratory Tests 05/28/23 06:27 05/28/23 06:27 05/27/23 05/27/23 05/28/23 11:49 20:36 06:27 WBC 12.2 H RBC 3.93 L Hgb 11.0 L Hct 36.0 L MCV 91.6 MCH 28.0 MCHC 30.6 L RDW 15.2 H Plt Count 279 MPV 10.4 Immature Gran % (Auto) 0.4 Neut % (Auto) 75.4 H Lymph % (Auto) 12.7 L [place] % (Auto) 11.3 H Eos % (Auto) 0.0 Baso % (Auto) 0.2 Lymph # (Auto) 1.55 [place] # (Auto) 1.4 H Eos # (Auto) 0.0 Baso # (Auto) 0.0 Abs Immat Gran (auto) 0.05 H Absolute Neuts (auto) 9.2 H Absolute Nucleated RBC 0.000 Nucleated RBC % 0.0 Sodium 136 L Potassium 4.1 Chloride 105 Carbon Dioxide 25 Anion Gap 6 L BUN 12 D Creatinine 0.90 Estim Creat Clear Calc 49 Estimated GFR 60 Glucose 137 H POC Capillary Glucose 168 H 192 H Calcium 8.6 Magnesium 1.9 05/28/23 07:28 WBC RBC Hgb Hct MCV MCH MCHC RDW Plt Count MPV Immature Gran % (Auto) Neut % (Auto) Lymph % (Auto) [place] % (Auto) Eos % (Auto) Baso % (Auto) Lymph # (Auto) [place] # (Auto) Eos # (Auto) Baso # (Auto) Abs Immat Gran (auto) Absolute Neuts (auto) Absolute Nucleated RBC Nucleated RBC % Sodium Potassium Chloride Carbon Dioxide Anion Gap BUN Creatinine Estim Creat Clear Calc Estimated GFR Glucose POC Capillary Glucose 126 H Calcium Magnesium Post-procedural complaints: none Patient Feedback: Patient satisfied with anesthetic care.
[2023-05-28 11:42] LABS: Glucose Point of Care 123 mg/dl (65-105)
--- NOTE | 2023-05-28 13:19 | P.PNUR_ITS ---
Progress Note: A&P Assessment and Plan (1) Left renal mass: Code(s): N28.89 - Other specified disorders of kidney and ureter Status: Acute Assessment and Plan: Underwent LEXI left radical nephrectomy with sparing of left adrenal gland on 05/27/[address] Palmer. Tolerated procedure well. Pain is reasonably controlled today. Pathology is pending, will be reviewed with patient by Dr. Palmer. Continue Tan catheter at this time. Subjective Subjective Date/Time Seen: 05/28/23 13:19 Interval history: Doing fair today. Complains of intermittent episodes of sharp left flank pain that is improved with analgesics. Denies pain at this time. She is tolerating her diet. Denies nausea or vomiting. No fevers or chills. No issues with Tan catheter which is draining clear yellow urine. Review of Systems Review of Systems: All systems reviewed & are unremarkable except as noted in HPI and below Exam Narrative: General: Awake, alert, comfortable, no acute distress HEENT: Normocephalic, atraumatic, sclerae anicteric Respiratory: Normal respiratory effort, no accessory muscle use Abdomen: Nondistended, soft, nontender : Tan catheter draining clear yellow urine Skin: Normal coloration, warm and dry, , left abdominal incision clean, dry, intact, no surrounding infection Neurologic: No focal neuro deficits noted Psychiatric: Appropriate mood and affect, judgment and insight intact Objective Data Vital Signs Vital Signs: Vital Signs - 24 hr 05/27/23 13:20 05/27/23 13:50 05/27/23 13:56 Temperature 97.0 F L 97.7 F Pulse Rate 105 H 60 55 L Respiratory Rate 20 14 14 Blood Pressure 165/86 H 180/59 H 180/70 H Pulse Oximetry 95 94 96 Oxygen Delivery Nasal Cannula Oxygen Flow Rate 2 05/27/23 14:26 05/27/23 15:26 05/27/23 16:42 Temperature 97.0 F L 97.2 F L Pulse Rate 59 L 60 60 Respiratory Rate 16 16 Blood Pressure 186/70 H 180/56 H Pulse Oximetry 97 98 Oxygen Delivery Oxygen Flow Rate 05/27/23 20:35 05/27/23 23:26 05/28/23 03:26 Temperature 97.8 F 97.7 F 98.1 F Pulse Rate 61 60 60 Respiratory Rate 20 18 18 Blood Pressure 210/84 H 180/63 H 147/63 H Pulse Oximetry 98 96 96 Oxygen Delivery Oxygen Flow Rate 05/28/23 07:26 05/28/23 08:42 05/28/23 10:14 Temperature 97.6 F Pulse Rate 61 60 69 Respiratory Rate 18 16 Blood Pressure 137/51 L Pulse Oximetry 94 98 Oxygen Delivery Nasal Cannula Oxygen Flow Rate 2 05/28/23 08:00 05/28/23 11:26 Temperature 97.7 F Pulse Rate 60 Respiratory Rate 20 Blood Pressure 135/53 L Pulse Oximetry 94 98 Oxygen Delivery Nasal Cannula Oxygen Flow Rate 2 Intake/Output Intake/Output: Intake & Output 05/25/23 05/26/23 05/27/23 05/28/23 23:59 23:59 23:59 23:59 Intake Total 1300 1034 Output Total 250 1650 Balance 1050 -616 Meds/Results Medications: Active Medications Generic Name Dose Route Start Last Admin Trade Name Freq PRN Reason Stop Dose Admin Hydrocodone Bitart/Acetaminophen 1 tab 05/28/23 05:00 05/28/23 10:39 Hydrocodone/Acetaminophen (*Crx) 5-325 Mg Tablet PO 1 tab Q4H PRN Administration Pain Rated 1-3 Hydrocodone Bitart/Acetaminophen 2 tab 05/28/23 05:00 Hydrocodone/Acetaminophen (*Crx) 5-325 Mg Tablet PO Q4H PRN Pain Rated 4-6 Amlodipine Besylate 5 mg 05/27/23 21:00 05/27/23 20:50 Amlodipine Besylate 5 Mg Tablet PO 5 mg HS JAMARCUS Administration Carvedilol 25 mg 05/27/23 17:00 05/28/23 08:42 Carvedilol 25 Mg Tablet PO 25 mg BID JAMARCUS Administration Dextrose 12.5 gm 05/27/23 17:24 Dextrose 50% 25 Gm/50 Ml Syringe IV PUSH PRN PRN Hypoglycemia Protocol Docusate Sodium 100 mg 05/27/23 17:00 05/28/23 08:42 Docusate Sodium 100 Mg Capsule PO 100 mg BID JAMARCUS Administration Glimepiride 1 mg 05/28/23 08:00 05/28/23 08:43 Glimepiride 1 Mg Tablet PO 1 mg DAILY@0800 JAMARCUS Administration Glucagon 1 mg 05/27/23 17:24 Glucagon For Inj 1 Mg Vial IM PRN PRN Hypoglycemia Protocol Glucose 15 gm 05/27/23 17:24 Glucose Oral Gel 15 Gm Of Glucse In 37.5 Gm Tube PO PRN PRN Hypoglycemia Protocol Hydromorphone HCl 0.5 mg 05/27/23 13:41 05/27/23 20:53 Hydromorphone Hcl Inj (*Crx) 1 Mg/Ml Syr IV PUSH 0.5 mg Q4H PRN Administration Pain Rated 7-10 Dextrose/Lactated Ringer's 1,000 mls @ 150 mls/hr 05/27/23 13:41 05/28/23 00:07 Dextrose 5%/Lactated Ringers IV CONT 100 mls/hr .Q6H40M JAMARCUS Administration Dextrose 1,000 mls @ 100 mls/hr 05/27/23 17:24 Dextrose 5% 1,000 Ml IVPB PRN PRN Hypoglycemia Protocol Insulin Aspart 2 - 5 units 05/28/23 08:00 05/28/23 13:06 Insulin Aspart (*Bkc) 100 Units/Ml SUB-Q Not Given TIDWM [facility] Protocol Insulin Aspart 1 - 2 units 05/27/23 21:00 05/27/23 21:00 Insulin Aspart (*Bkc) 100 Units/Ml SUB-Q Not Given HS [facility] Protocol Levothyroxine Sodium 100 mcg 05/28/23 06:30 05/28/23 05:52 Levothyroxine Sodium 100 Mcg Tablet PO 100 mcg DAILY@0630 JAMARCUS Administration Naloxone HCl 0.1 mg 05/27/23 13:41 Naloxone Hcl 0.4 Mg/Ml Vial IV PUSH Q2M PRN Opiate Reversal Ondansetron HCl 4 mg 05/27/23 13:41 Ondansetron Inj 4 Mg/2 Ml Vial IV PUSH Q6H PRN Nausea And Vomiting Pravastatin Sodium 20 mg 05/28/23 09:00 05/28/23 08:43 Pravastatin Sodium 20 Mg Tablet PO 20 mg DAILY JAMARCUS Administration Labs Labs: Laboratory Results - last 24 hr 05/27/23 05/28/23 05/28/23 20:36 06:27 07:28 WBC 12.2 H RBC 3.93 L Hgb 11.0 L Hct 36.0 L MCV 91.6 MCH 28.0 MCHC 30.6 L RDW 15.2 H Plt Count 279 MPV 10.4 Immature Gran % (Auto) 0.4 Neut % (Auto) 75.4 H Lymph % (Auto) 12.7 L [place] % (Auto) 11.3 H Eos % (Auto) 0.0 Baso % (Auto) 0.2 Lymph # (Auto) 1.55 [place] # (Auto) 1.4 H Eos # (Auto) 0.0 Baso # (Auto) 0.0 Abs Immat Gran (auto) 0.05 H Absolute Neuts (auto) 9.2 H Absolute Nucleated RBC 0.000 Nucleated RBC % 0.0 Sodium 136 L Potassium 4.1 Chloride 105 Carbon Dioxide 25 Anion Gap 6 L BUN 12 D Creatinine 0.90 Estim Creat Clear Calc 49 Estimated GFR 60 Glucose 137 H POC Capillary Glucose 192 H 126 H Calcium 8.6 Magnesium 1.9 05/28/23 11:25 WBC RBC Hgb Hct MCV MCH MCHC RDW Plt Count MPV Immature Gran % (Auto) Neut % (Auto) Lymph % (Auto) [place] % (Auto) Eos % (Auto) Baso % (Auto) Lymph # (Auto) [place] # (Auto) Eos # (Auto) Baso # (Auto) Abs Immat Gran (auto) Absolute Neuts (auto) Absolute Nucleated RBC Nucleated RBC % Sodium Potassium Chloride Carbon Dioxide Anion Gap BUN Creatinine Estim Creat Clear Calc Estimated GFR Glucose POC Capillary Glucose 123 H Calcium Magnesium
--- NOTE | 2023-05-28 14:24 | PCSTNOTE ---
Please refer to the Bedside Swallow Evaluation in the EMR. Please note, silent aspiration cannot be ruled out at bedside. The above pleasant and cooperative pt was seen for a swallow evaluation at bedside. The pt was positioned upright in the bed. She was alert & oriented & able to follow commands. She is currently on a regular consistency diet; her spouse was present and stated she occasionally complains that food gets caught, but that hasn't actually occurred in awhile . Oral mucosa is normal; she was able to dry swallow on command and exhibited a strong cough and clear vocal quality. She was tested with pudding, applesauce, cracker and thin liquids. The oral stages appeared WNL. No oral leakage or pocketing was noted. During the pharyngeal stage, swallow reflex appeared prompt & laryngeal elevation adequate. No overt s/s of aspiration were exhibited; however, silent aspiration cannot be ruled out at bedside. General impression is normal swallow ability. Recommendation: regular diet/liquids
--- NOTE | 2023-05-28 15:49 | PCPTNOTE ---
attempted evaluation, attempted to move pain to EOB but pt was in too much abdominal pain to move, states she cannot participate today d/t pain, will follow
[2023-05-28] MEDS: HYDROcodone/acetaminophen (*CRX) 5-325 MG TABLET 2 TAB PO (16:48)
[2023-05-28 16:53] LABS: Glucose Point of Care 110 mg/dl (65-105)
[2023-05-28] MEDS: amLODIPine BESYLATE 5 MG TABLET PO (21:02)
[2023-05-29] VITALS (8 sets, daily range): BP systolic 138–184; BP diastolic 49–78; PULSE 59–62; RESP 16–20; TEMP 36.3–37.3; O2SAT 93–97
[2023-05-29 00:47] LABS: Glucose Point of Care 128 mg/dl (65-105)
[2023-05-29] MEDS: DEXTROSE 5%/LACTATED RINGERS 1,000 ML 150 ML IV CONT (05:22)
[2023-05-29] MEDS: hydrALAZINE HCL 20 MG/ML VIAL 10 MG IV PUSH (05:22)
[2023-05-29] MEDS: LEVOTHYROXINE SODIUM 100 MCG TABLET PO (05:29)
[2023-05-29 06:44] LABS: Basophils Percent Auto 0.3 % (0.2-1.2); Eosinophils Absolute Auto 0.1 K/mm3 (0-0.3); Eosinophils Percent Auto 0.7 % (0-4.4); Hematocrit 32.1 % (37.0-47.0); Hemoglobin 9.9 g/dL (12.0-15.0); Immature Granulocyte Absolute 0.04 K/mm3 (0.00-0.031); Immature Granulocyte Percent A 0.3 % (0-0.5); Lymphocytes Absolute Auto 1.62 K/mm3 (0.9-3.2); Lymphocytes Percent Auto 13.5 % (18.3-44.2); Mean Corpuscular HGB Conc 30.8 g/dl (32-36); Mean Corpuscular Hemoglobin 28.4 pg (26-34); Mean Corpuscular Volume 92.2 fl (80-100); Mean Platelet Volume 10.5 fl (7.4-10.4); Monocytes Absolute Auto 1.2 K/mm3 (0.1-0.6); Monocytes Percent Auto 9.6 % (2.6-8.5); Neutrophils Absolute Auto 9.1 K/mm3 (1.3-6.7); Neutrophils Percent Auto 75.6 % (45.5-73.1); Platelet Count Result 259 k/mm3 (150-375); Red Blood Count 3.48 M/mm3 (4.2-5.4); Red Cell Distribution Width 15.9 % (11.5-14.5)
[2023-05-29 06:55] LABS: Alkaline Phosphatase 47 U/L (38-126); Anion Gap 1 mmol/L (4-12); Aspartate Amino Transferase 24 U/L (14-36); Bilirubin,Total 0.7 mg/dL (0.2-1.3); Blood Urea Nitrogen 17 mg/dL (7-17); Calcium 8.8 mg/dL (8.4-10.2); Carbon Dioxide 28 mmol/L (22-30); Chloride 103 mmol/L (98-107); Estimated CRCL calculation 38 ml/min; Estimated Glomerular Filt Rate 43; Glucose 116 mg/dL (65-110); Magnesium 1.8 mg/dL (1.6-2.3); Sodium 132 mmol/L (137-145)
[2023-05-29 07:57] LABS: Glucose Point of Care 112 mg/dl (65-105)
--- NOTE | 2023-05-29 07:59 | WPDUROPN2 ---
Progress Note: A&P Assessment and Plan (1) Left renal mass: Code(s): N28.89 - Other specified disorders of kidney and ureter Status: Acute Assessment and Plan: Pathology revealed renal cell carcinoma with neg margins. Discussed with Carolina and her . Need to increase activity. OOB to chair and ambulate. PT consult. Remove reed this am. Incentive spirometer. Subjective Subjective Date/Time Seen: 05/29/23 07:59 Interval history: POD#2 LEXI left nephrectomy. Still not out of bed but no major complaints Review of Systems Review of Systems: All systems reviewed & are unremarkable except as noted in HPI and below Exam Const: General: cooperative and no acute distress Resp: Effort & Inspection: normal respiratory effort Cardio: Rhythm: regular rhythm GI: GI Palp: Yes Soft to palpation Objective Data Vital Signs Vital Signs: Vital Signs - 24 hr 05/28/23 08:42 05/28/23 10:14 05/28/23 08:00 Temperature Pulse Rate 60 69 Respiratory Rate 16 Blood Pressure Pulse Oximetry 98 94 Oxygen Delivery Nasal Cannula Nasal Cannula Oxygen Flow Rate 2 2 05/28/23 11:26 05/28/23 16:49 05/28/23 15:26 Temperature 36.5 C 36.4 C Pulse Rate 60 60 60 Respiratory Rate 20 20 Blood Pressure 135/53 L 163/62 H Pulse Oximetry 98 97 Oxygen Delivery Oxygen Flow Rate 05/28/23 20:00 05/28/23 20:00 05/29/23 00:00 Temperature 36.1 C L 36.3 C L Pulse Rate 60 60 Respiratory Rate 18 18 Blood Pressure 153/60 H 175/71 H Pulse Oximetry 98 98 96 Oxygen Delivery Nasal Cannula Oxygen Flow Rate 2 05/29/23 04:00 05/29/23 06:20 Temperature 37.1 C 36.8 C Pulse Rate 62 60 Respiratory Rate 20 18 Blood Pressure 184/78 H 162/55 H Pulse Oximetry 93 95 Oxygen Delivery Oxygen Flow Rate Intake/Output Intake/Output: Intake & Output 05/26/23 05/27/23 05/28/23 05/29/23 23:59 23:59 23:59 23:59 Intake Total 1300 2324 1100 Output Total 250 1650 300 Balance 1050 674 800 Meds/Results Medications: Active Medications Generic Name Dose Route Start Last Admin Trade Name Freq PRN Reason Stop Dose Admin Hydrocodone Bitart/Acetaminophen 1 tab 04/03/24 05:00 05/28/23 10:39 Hydrocodone/Acetaminophen (*Crx) 5-325 Mg Tablet PO 1 tab Q4H PRN Administration Pain Rated 1-3 Hydrocodone Bitart/Acetaminophen 2 tab 05/28/23 05:00 05/28/23 16:48 Hydrocodone/Acetaminophen (*Crx) 5-325 Mg Tablet PO 2 tab Q4H PRN Administration Pain Rated 4-6 Amlodipine Besylate 5 mg 05/27/23 21:00 05/28/23 21:02 Amlodipine Besylate 5 Mg Tablet PO 5 mg HS JAMARCUS Administration Carvedilol 25 mg 05/27/23 17:00 05/28/23 16:49 Carvedilol 25 Mg Tablet PO 25 mg BID J[facility] Administration Dextrose 12.5 gm 05/27/23 17:24 Dextrose 50% 25 Gm/50 Ml Syringe IV PUSH PRN PRN Hypoglycemia Protocol Docusate Sodium 100 mg 05/27/23 17:00 05/28/23 16:50 Docusate Sodium 100 Mg Capsule PO 100 mg BID J[facility] Administration Glimepiride 1 mg 05/28/23 08:00 05/28/23 08:43 Glimepiride 1 Mg Tablet PO 1 mg DAILY@0800 [facility] Administration Glucagon 1 mg 05/27/23 17:24 Glucagon For Inj 1 Mg Vial IM PRN PRN Hypoglycemia Protocol Glucose 15 gm 05/27/23 17:24 Glucose Oral Gel 15 Gm Of Glucse In 37.5 Gm Tube PO PRN PRN Hypoglycemia Protocol Hydromorphone HCl 0.5 mg 05/27/23 13:41 05/27/23 20:53 Hydromorphone Hcl Inj (*Crx) 1 Mg/Ml Syr IV PUSH 0.5 mg Q4H PRN Administration Pain Rated 7-10 Dextrose/Lactated Ringer's 1,000 mls @ 150 mls/hr 05/27/23 13:41 05/29/23 05:22 Dextrose 5%/Lactated Ringers IV CONT 150 mls/hr .Q6H40M [facility] Administration Dextrose 1,000 mls @ 100 mls/hr 05/27/23 17:24 Dextrose 5% 1,000 Ml IVPB PRN PRN Hypoglycemia Protocol Insulin Aspart 2 - 5 units 05/28/23 08:00 05/28/23 16:52 Insulin Aspart (*Bkc) 100 Units/Ml SUB-Q Not Given TIDWM [facility] Protocol Insulin Aspart 1 - 2 units 05/27/23 21:00 05/28/23 20:58 Insulin Aspart (*Bkc) 100 Units/Ml SUB-Q Not Given HS [facility] Protocol Levothyroxine Sodium 100 mcg 05/28/23 06:30 05/29/23 05:29 Levothyroxine Sodium 100 Mcg Tablet PO 100 mcg DAILY@0630 [facility] Administration Naloxone HCl 0.1 mg 05/27/23 13:41 Naloxone Hcl 0.4 Mg/Ml Vial IV PUSH Q2M PRN Opiate Reversal Ondansetron HCl 4 mg 05/27/23 13:41 Ondansetron Inj 4 Mg/2 Ml Vial IV PUSH Q6H PRN Nausea And Vomiting Pravastatin Sodium 20 mg 05/28/23 09:00 05/28/23 08:43 Pravastatin Sodium 20 Mg Tablet PO 20 mg DAILY [facility] Administration Labs Labs: Laboratory Results - last 24 hr 05/28/23 05/28/23 05/28/23 11:25 16:51 20:56 WBC RBC Hgb Hct MCV MCH MCHC RDW Plt Count MPV Immature Gran % (Auto) Neut % (Auto) Lymph % (Auto) [place] % (Auto) Eos % (Auto) Baso % (Auto) Lymph # (Auto) [place] # (Auto) Eos # (Auto) Baso # (Auto) Abs Immat Gran (auto) Absolute Neuts (auto) Absolute Nucleated RBC Nucleated RBC % Sodium Potassium Chloride Carbon Dioxide Anion Gap BUN Creatinine Estim Creat Clear Calc Estimated GFR Glucose POC Capillary Glucose 123 H 110 H 128 H Calcium Magnesium Total Bilirubin AST Alkaline Phosphatase Total Protein Albumin 05/29/23 05/29/23 06:18 07:48 WBC 12.0 H RBC 3.48 L Hgb 9.9 L Hct 32.1 L MCV 92.2 MCH 28.4 MCHC 30.8 L RDW 15.9 H Plt Count 259 MPV 10.5 H Immature Gran % (Auto) 0.3 Neut % (Auto) 75.6 H Lymph % (Auto) 13.5 L [place] % (Auto) 9.6 H Eos % (Auto) 0.7 Baso % (Auto) 0.3 Lymph # (Auto) 1.62 [place] # (Auto) 1.2 H Eos # (Auto) 0.1 Baso # (Auto) 0.0 Abs Immat Gran (auto) 0.04 H Absolute Neuts (auto) 9.1 H Absolute Nucleated RBC 0.000 Nucleated RBC % 0.0 Sodium 132 L Potassium 4.0 Chloride 103 Carbon Dioxide 28 Anion Gap 1 L BUN 17 Creatinine 1.20 H Estim Creat Clear Calc 38 Estimated GFR 43 L Glucose 116 H POC Capillary Glucose 112 H Calcium 8.8 Magnesium 1.8 Total Bilirubin 0.7 AST 24 Alkaline Phosphatase 47 Total Protein 6.0 L Albumin 3.0 L
[2023-05-29 08:08] LABS: Alanine Aminotransferase 5 U/L (6-35)
[2023-05-29] MEDS: carvediloL 25 MG TABLET PO ×2 (08:53→17:58)
[2023-05-29] MEDS: PRAVASTATIN SODIUM 20 MG TABLET PO (08:53)
[2023-05-29] MEDS: DOCUSATE SODIUM 100 MG CAPSULE PO ×2 (08:53→17:58)
[2023-05-29] MEDS: GLIMEPIRIDE 1 MG TABLET PO (08:55)
--- NOTE | 2023-05-29 09:03 | P.PNIM_ITS ---
Progress Note: A&P Assessment and Plan (1) Left renal mass: Code(s): N28.89 - Other specified disorders of kidney and ureter Status: Acute Assessment and Plan: Underwent LEXI left radical nephrectomy with sparing of left adrenal gland on 05/27/[address] Palmer. Tolerated procedure well. Pain is reasonably controlled today. Pathology is pending, will be reviewed with patient by Dr. Palmer. Continue Reed catheter at this time. 05/27: * PT OT consult and recs are appreciated * Up out of bed to chair during the day * Incentive spirometry ordered * Pain management and Reed management per surgery * Speech evaluation * Monitor right upper arm and hand swelling from recent IV infiltration. Should this worsen or pain be associated with the swelling then will proceed with right upper arm ultrasound to rule out DVT. 05/28: * OOB to chair today * Use IS * WBC hanging out at 12.0, likely inflammatory and atelectasis component * D/C reed per surgery * Tolerating a diet. * Decreasing fluids to 75 ml per hour Subjective Date/time seen: 05/29/23 09:03 Interval history: HPI obtained from consult, This is an 82-year-old female with multiple medical problems including history of stroke, sick sinus syndrome status post pacemaker implantation, paroxysmal atrial fibrillation on chronic anticoagulation, hypertension, congestive heart failure, chronic kidney disease, mild restrictive lung disease, hypothyroidism, rheumatoid arthritis, and type 2 diabetes mellitus the hospitalist service has been consulted for help managing her medical conditions postoperatively.? Interval history: 05/27: Patient is seen today in bed in no acute distress. and son are at the bedside. The patient reports having difficulty with swallowing her food this morning. She states this is a chronic issue for her and food gets stuck in her throat. I told her we could have speech do a formal evaluation of her swallow and if they recommend a barium study we could arrange this outpatient given her recent surgery. Patient is agreeable to speech evaluation. We also discussed her right arm and hand swelling after an IV infiltration. I instructed her to keep it elevated on a pillow. She says the swelling has already gone down and there is no pain or tenderness. If swelling worsens or pain results then we would need to get an US to r/o DVT. She otherwise reports intermittent sharp pains in her abdomen that sound like gas pain. I spoke with her about working with therapy and getting up and out of bed today. I also told her I would be ordering an incentive spirometer. Family and patient were satisfied with plan of care and have no further questions at this time. 05/28: Patient is seen sitting up in a chair with her at bedside. Her says she is much more alert and with it now but when she 1st got up and walked with therapy she was pretty drowsy and almost confused. At this time she is alert and oriented for me. Her catheter has been removed. She is still on 2 L nasal cannula. We decreased her IV fluids to 75 mL an hour since she is now on a diet. Encouraged her to stay in the chair as much as possible today. Review of Systems Review of Systems: All systems reviewed & are unremarkable except as noted in HPI and below Exam Narrative: General: well appearing, well developed, well nourished, appears stated age. HEENT: normocephalic, atraumatic. Mucous membranes moist. EOMI, PERRLA, bilateral sclera anicteric, no conjunctival injection. Neck supple without JVD, lymphadenopathy, or bruit. Respiratory: clear to auscultation with diminished bases bilaterally. No rales/rhonic/wheezes. Cardiovascular: Regular rate and rhythm, normal S1-S2 upon auscultation. No murmurs, rubs, or clicks. PMI is nondisplaced, capillary re-fill less than 3 second. Abdomen: Soft, round, no pulsatile masses, non-distended and moderately tender. No rebound, no guarding. No CVA tenderness, no hepatosplenomegaly. Bowel sounds hypoactive to RLQ, LUQ, LLQ quadrants. No high pitch or tinkling sounds, resonant to percussion. Extremities: No cyanosis, clubbing, or edema present. Pulses are palpable 2/2. Active ROM to all four extremities. Neuro: Alert and orientated x 4. PERRLA. Cranial nerves 2-12 intact without focal deficit. Skin: Warm, dry, and intact, without rash, erythema, or lesion. Lines: Incisions: abdominal incision with lap sites are well approximated Psych: pleasant, cooperative, normal speech, normal affect, no hallucinations, no dysarthria Objective Data Vital Signs Vital Signs: Vital Signs - 24 hr 05/28/23 10:14 05/28/23 11:26 05/28/23 16:49 Temperature 97.7 F Pulse Rate 69 60 60 Respiratory Rate 16 20 Blood Pressure 135/53 L Pulse Oximetry 98 98 Oxygen Delivery Nasal Cannula Oxygen Flow Rate 2 05/28/23 15:26 05/28/23 20:00 05/28/23 20:00 Temperature 97.6 F 96.9 F L Pulse Rate 60 60 Respiratory Rate 20 18 Blood Pressure 163/62 H 153/60 H Pulse Oximetry 97 98 98 Oxygen Delivery Nasal Cannula Oxygen Flow Rate 2 05/29/23 00:00 05/29/23 04:00 05/29/23 06:20 Temperature 97.4 F L 98.7 F 98.2 F Pulse Rate 60 62 60 Respiratory Rate 18 20 18 Blood Pressure 175/71 H 184/78 H 162/55 H Pulse Oximetry 96 93 95 Oxygen Delivery Oxygen Flow Rate 05/29/23 07:49 Temperature 98.8 F Pulse Rate 59 L Respiratory Rate 16 Blood Pressure 150/49 H Pulse Oximetry 95 Oxygen Delivery Oxygen Flow Rate Intake/Output Intake/Output: Intake & Output 05/26/23 05/27/23 05/28/23 05/29/23 23:59 23:59 23:59 23:59 Intake Total 1300 2324 1100 Output Total 250 1650 300 Balance 1050 674 800 Meds/Results Medications: Active Medications Generic Name Dose Route Start Last Admin Trade Name Freq PRN Reason Stop Dose Admin Hydrocodone Bitart/Acetaminophen 1 tab 05/28/23 05:00 05/28/23 10:39 Hydrocodone/Acetaminophen (*Crx) 5-325 Mg Tablet PO 1 tab Q4H PRN Administration Pain Rated 1-3 Hydrocodone Bitart/Acetaminophen 2 tab 05/28/23 05:00 05/28/23 16:48 Hydrocodone/Acetaminophen (*Crx) 5-325 Mg Tablet PO 2 tab Q4H PRN Administration Pain Rated 4-6 Amlodipine Besylate 5 mg 05/27/23 21:00 05/28/23 21:02 Amlodipine Besylate 5 Mg Tablet PO 5 mg HS JAMARCUS Administration Carvedilol 25 mg 05/27/23 17:00 05/29/23 08:53 Carvedilol 25 Mg Tablet PO 25 mg BID JAMARCUS Administration Dextrose 12.5 gm 05/27/23 17:24 Dextrose 50% 25 Gm/50 Ml Syringe IV PUSH PRN PRN Hypoglycemia Protocol Docusate Sodium 100 mg 05/27/23 17:00 05/29/23 08:53 Docusate Sodium 100 Mg Capsule PO 100 mg BID [facility] Administration Glimepiride 1 mg 05/28/23 08:00 05/29/23 08:55 Glimepiride 1 Mg Tablet PO 1 mg DAILY@0800 [facility] Administration Glucagon 1 mg 05/27/23 17:24 Glucagon For Inj 1 Mg Vial IM PRN PRN Hypoglycemia Protocol Glucose 15 gm 05/27/23 17:24 Glucose Oral Gel 15 Gm Of Glucse In 37.5 Gm Tube PO PRN PRN Hypoglycemia Protocol Hydromorphone HCl 0.5 mg 05/27/23 13:41 05/27/23 20:53 Hydromorphone Hcl Inj (*Crx) 1 Mg/Ml Syr IV PUSH 0.5 mg Q4H PRN Administration Pain Rated 7-10 Dextrose/Lactated Ringer's 1,000 mls @ 150 mls/hr 05/27/23 13:41 05/29/23 08:51 Dextrose 5%/Lactated Ringers IV CONT Not Given .Q6H40M [facility] Dextrose 1,000 mls @ 100 mls/hr 05/27/23 17:24 Dextrose 5% 1,000 Ml IVPB PRN PRN Hypoglycemia Protocol Insulin Aspart 2 - 5 units 05/28/23 08:00 05/29/23 08:52 Insulin Aspart (*Bkc) 100 Units/Ml SUB-Q Not Given TID[facility] Protocol Insulin Aspart 1 - 2 units 05/27/23 21:00 05/28/23 20:58 Insulin Aspart (*Bkc) 100 Units/Ml SUB-Q Not Given HS [facility] Protocol Levothyroxine Sodium 100 mcg 05/28/23 06:30 05/29/23 05:29 Levothyroxine Sodium 100 Mcg Tablet PO 100 mcg DAILY@0630 [facility] Administration Naloxone HCl 0.1 mg 05/27/23 13:41 Naloxone Hcl 0.4 Mg/Ml Vial IV PUSH Q2M PRN Opiate Reversal Ondansetron HCl 4 mg 05/27/23 13:41 Ondansetron Inj 4 Mg/2 Ml Vial IV PUSH Q6H PRN Nausea And Vomiting Pravastatin Sodium 20 mg 05/28/23 09:00 04/04/24 08:53 Pravastatin Sodium 20 Mg Tablet PO 20 mg DAILY JAMARCUS Administration Labs Labs: Laboratory Results - last 24 hr 05/28/23 05/28/23 05/28/23 11:25 16:51 20:56 WBC RBC Hgb Hct MCV MCH MCHC RDW Plt Count MPV Immature Gran % (Auto) Neut % (Auto) Lymph % (Auto) [place] % (Auto) Eos % (Auto) Baso % (Auto) Lymph # (Auto) [place] # (Auto) Eos # (Auto) Baso # (Auto) Abs Immat Gran (auto) Absolute Neuts (auto) Absolute Nucleated RBC Nucleated RBC % Sodium Potassium Chloride Carbon Dioxide Anion Gap BUN Creatinine Estim Creat Clear Calc Estimated GFR Glucose POC Capillary Glucose 123 H 110 H 128 H Calcium Magnesium Total Bilirubin AST ALT Alkaline Phosphatase Total Protein Albumin 05/29/23 05/29/23 06:18 07:48 WBC 12.0 H RBC 3.48 L Hgb 9.9 L Hct 32.1 L MCV 92.2 MCH 28.4 MCHC 30.8 L RDW 15.9 H Plt Count 259 MPV 10.5 H Immature Gran % (Auto) 0.3 Neut % (Auto) 75.6 H Lymph % (Auto) 13.5 L [place] % (Auto) 9.6 H Eos % (Auto) 0.7 Baso % (Auto) 0.3 Lymph # (Auto) 1.62 [place] # (Auto) 1.2 H Eos # (Auto) 0.1 Baso # (Auto) 0.0 Abs Immat Gran (auto) 0.04 H Absolute Neuts (auto) 9.1 H Absolute Nucleated RBC 0.000 Nucleated RBC % 0.0 Sodium 132 L Potassium 4.0 Chloride 103 Carbon Dioxide 28 Anion Gap 1 L BUN 17 Creatinine 1.20 H Estim Creat Clear Calc 38 Estimated GFR 43 L Glucose 116 H POC Capillary Glucose 112 H Calcium 8.8 Magnesium 1.8 Total Bilirubin 0.7 AST 24 ALT 5 L Alkaline Phosphatase 47 Total Protein 6.0 L Albumin 3.0 L
[2023-05-29 11:57] LABS: Glucose Point of Care 101 mg/dl (65-105)
[2023-05-29 16:58] LABS: Glucose Point of Care 87 mg/dl (65-105)
[2023-05-29] MEDS: DEXTROSE 5%/LACTATED RINGERS 1,000 ML 75 ML IV CONT (17:57)
[2023-05-29] MEDS: HYDROcodone/acetaminophen (*CRX) 5-325 MG TABLET 1 TAB PO (18:02)
[2023-05-29] MEDS: amLODIPine BESYLATE 5 MG TABLET PO (21:47)
[2023-05-29 23:03] LABS: Glucose Point of Care 110 mg/dl (65-105)
[2023-05-30 06:00] VITALS: BP 154/66; PULSE 60; RESP 20; TEMP 37.1; O2SAT 98
[2023-05-30] MEDS: LEVOTHYROXINE SODIUM 100 MCG TABLET PO (06:04)
[2023-05-30] MEDS: DEXTROSE 5%/LACTATED RINGERS 1,000 ML 75 ML IV CONT (06:04)
[2023-05-30] MEDS: HYDROcodone/acetaminophen (*CRX) 5-325 MG TABLET 1 TAB PO (06:14)
[2023-05-30 07:37] VITALS: BP 129/59; PULSE 59; RESP 18; TEMP 36.4; O2SAT 96
[2023-05-30 07:49] LABS: Basophils Absolute Auto 0.1 K/mm3 (0.0-0.1); Basophils Percent Auto 0.5 % (0.2-1.2); Eosinophils Absolute Auto 0.3 K/mm3 (0-0.3); Eosinophils Percent Auto 2.6 % (0-4.4); Hematocrit 33.8 % (37.0-47.0); Hemoglobin 10.2 g/dL (12.0-15.0); Immature Granulocyte Absolute 0.03 K/mm3 (0.00-0.031); Immature Granulocyte Percent A 0.3 % (0-0.5); Lymphocytes Absolute Auto 1.97 K/mm3 (0.9-3.2); Lymphocytes Percent Auto 18.9 % (18.3-44.2); Mean Corpuscular HGB Conc 30.2 g/dl (32-36); Mean Corpuscular Volume 92.9 fl (80-100); Mean Platelet Volume 10.1 fl (7.4-10.4); Monocytes Percent Auto 9.2 % (2.6-8.5); Neutrophils Absolute Auto 7.2 K/mm3 (1.3-6.7); Neutrophils Percent Auto 68.5 % (45.5-73.1); Platelet Count Result 273 k/mm3 (150-375); Red Blood Count 3.64 M/mm3 (4.2-5.4); Red Cell Distribution Width 15.8 % (11.5-14.5); White Blood Count 10.4 K/mm3 (4.5-10.0)
[2023-05-30 07:53] LABS: Alkaline Phosphatase 69 U/L (38-126); Anion Gap 1 mmol/L (4-12); Aspartate Amino Transferase 20 U/L (14-36); Bilirubin,Total 0.6 mg/dL (0.2-1.3); Blood Urea Nitrogen 15 mg/dL (7-17); Carbon Dioxide 32 mmol/L (22-30); Chloride 103 mmol/L (98-107); Estimated CRCL calculation 46 ml/min; Estimated Glomerular Filt Rate 53; Glucose 97 mg/dL (65-110); Potassium 3.7 mmol/L (3.4-5.0); Sodium 136 mmol/L (137-145)
[2023-05-30 08:08] VITALS: PULSE 60
[2023-05-30] MEDS: PRAVASTATIN SODIUM 20 MG TABLET PO (08:08)
[2023-05-30] MEDS: DOCUSATE SODIUM 100 MG CAPSULE PO (08:08)
[2023-05-30] MEDS: carvediloL 25 MG TABLET PO (08:08)
[2023-05-30] MEDS: GLIMEPIRIDE 1 MG TABLET PO (08:18)
--- NOTE | 2023-05-30 09:54 | P.PNIM_ITS ---
Progress Note: A&P Assessment and Plan (1) Left renal mass: Code(s): N28.89 - Other specified disorders of kidney and ureter Status: Acute Assessment and Plan: Underwent LEXI left radical nephrectomy with sparing of left adrenal gland on 05/27/[address] Palmer. Tolerated procedure well. Pain is reasonably controlled today. Pathology is pending, will be reviewed with patient by Dr. Palmer. Continue Reed catheter at this time. 05/27: * PT OT consult and recs are appreciated * Up out of bed to chair during the day * Incentive spirometry ordered * Pain management and Reed management per surgery * Speech evaluation * Monitor right upper arm and hand swelling from recent IV infiltration. Should this worsen or pain be associated with the swelling then will proceed with right upper arm ultrasound to rule out DVT. 05/28: * OOB to chair today * Use IS * WBC hanging out at 12.0, likely inflammatory and atelectasis component * D/C reed per surgery * Tolerating a diet. * Decreasing fluids to 75 ml per hour Subjective Date/time seen: 05/30/23 09:54 Interval history: HPI obtained from consult, This is an 82-year-old female with multiple medical problems including history of stroke, sick sinus syndrome status post pacemaker implantation, paroxysmal atrial fibrillation on chronic anticoagulation, hypertension, congestive heart failure, chronic kidney disease, mild restrictive lung disease, hypothyroidism, rheumatoid arthritis, and type 2 diabetes mellitus the hospitalist service has been consulted for help managing her medical conditions postoperatively.? Interval history: 05/27: Patient is seen today in bed in no acute distress. and son are at the bedside. The patient reports having difficulty with swallowing her food this morning. She states this is a chronic issue for her and food gets stuck in her throat. I told her we could have speech do a formal evaluation of her swallow and if they recommend a barium study we could arrange this outpatient given her recent surgery. Patient is agreeable to speech evaluation. We also discussed her right arm and hand swelling after an IV infiltration. I instructed her to keep it elevated on a pillow. She says the swelling has already gone down and there is no pain or tenderness. If swelling worsens or pain results then we would need to get an US to r/o DVT. She otherwise reports intermittent sharp pains in her abdomen that sound like gas pain. I spoke with her about working with therapy and getting up and out of bed today. I also told her I would be ordering an incentive spirometer. Family and patient were satisfied with plan of care and have no further questions at this time. 05/28: Patient is seen sitting up in a chair with her at bedside. Her says she is much more alert and with it now but when she 1st got up and walked with therapy she was pretty drowsy and almost confused. At this time she is alert and oriented for me. Her catheter has been removed. She is still on 2 L nasal cannula. We decreased her IV fluids to 75 mL an hour since she is now on a diet. Encouraged her to stay in the chair as much as possible today. 05/29: Patient looks well today. She has been working with therapy and remains up in the chair. She is tolerating her diet and passing gas. Her pain is well controlled with prn agents. Urology is planning to discharge her today. Review of Systems Review of Systems: All systems reviewed & are unremarkable except as noted in HPI and below Exam Narrative: General: well appearing, well developed, well nourished, appears stated age. HEENT: normocephalic, atraumatic. Mucous membranes moist. EOMI, PERRLA, bilateral sclera anicteric, no conjunctival injection. Neck supple without JVD, lymphadenopathy, or bruit. Respiratory: clear to auscultation with diminished bases bilaterally. No rales/rhonic/wheezes. Cardiovascular: Regular rate and rhythm, normal S1-S2 upon auscultation. No murmurs, rubs, or clicks. PMI is nondisplaced, capillary re-fill less than 3 second. Abdomen: Soft, round, no pulsatile masses, non-distended and moderately tender. No rebound, no guarding. No CVA tenderness, no hepatosplenomegaly. Bowel sounds hypoactive to RLQ, LUQ, LLQ quadrants. No high pitch or tinkling sounds, resonant to percussion. Extremities: No cyanosis, clubbing, or edema present. Pulses are palpable 2/2. Active ROM to all four extremities. Neuro: Alert and orientated x 4. PERRLA. Cranial nerves 2-12 intact without focal deficit. Skin: Warm, dry, and intact, without rash, erythema, or lesion. Lines: Incisions: abdominal incision with lap sites are well approximated Psych: pleasant, cooperative, normal speech, normal affect, no hallucinations, no dysarthria Objective Data Vital Signs Vital Signs: Vital Signs - 24 hr 05/29/23 10:43 05/29/23 11:41 05/29/23 13:39 Temperature 97.8 F Pulse Rate 60 Respiratory Rate 16 Blood Pressure 138/67 Pulse Oximetry 97 Oxygen Delivery Nasal Cannula Nasal Cannula Oxygen Flow Rate 2 2 05/29/23 16:27 05/29/23 21:46 05/30/23 06:00 Temperature 99.2 F 98.7 F Pulse Rate 62 60 Respiratory Rate 17 20 Blood Pressure 154/66 H 182/56 H 154/66 H Pulse Oximetry 96 98 Oxygen Delivery Oxygen Flow Rate 05/30/23 07:37 05/30/23 08:08 Temperature 97.5 F L Pulse Rate 59 L 60 Respiratory Rate 18 Blood Pressure 129/59 L Pulse Oximetry 96 Oxygen Delivery Oxygen Flow Rate Intake/Output Intake/Output: Intake & Output 05/27/23 05/28/23 05/29/23 05/30/23 23:59 23:59 23:59 23:59 Intake Total 1300 2324 3530 1348.8 Output Total 250 1650 300 Balance 3731 704 6689 1348.8 Meds/Results Medications: Active Medications Generic Name Dose Route Start Last Admin Trade Name Freq PRN Reason Stop Dose Admin Hydrocodone Bitart/Acetaminophen 1 tab 05/28/23 05:00 05/30/23 06:14 Hydrocodone/Acetaminophen (*Crx) 5-325 Mg Tablet PO 1 tab Q4H PRN Administration Pain Rated 1-3 Hydrocodone Bitart/Acetaminophen 2 tab 05/28/23 05:00 05/28/23 16:48 Hydrocodone/Acetaminophen (*Crx) 5-325 Mg Tablet PO 2 tab Q4H PRN Administration Pain Rated 4-6 Amlodipine Besylate 5 mg 05/27/23 21:00 05/29/23 21:47 Amlodipine Besylate 5 Mg Tablet PO 5 mg HS JAMACRUS Administration Carvedilol 25 mg 05/27/23 17:00 05/30/23 08:08 Carvedilol 25 Mg Tablet PO 25 mg BID JAMARCUS Administration Dextrose 12.5 gm 05/27/23 17:24 Dextrose 50% 25 Gm/50 Ml Syringe IV PUSH PRN PRN Hypoglycemia Protocol Docusate Sodium 100 mg 05/27/23 17:00 05/30/23 08:08 Docusate Sodium 100 Mg Capsule PO 100 mg BID JAMARCUS Administration Glimepiride 1 mg 05/28/23 08:00 05/30/23 08:18 Glimepiride 1 Mg Tablet PO 1 mg DAILY@0800 JAMARCUS Administration Glucagon 1 mg 05/27/23 17:24 Glucagon For Inj 1 Mg Vial IM PRN PRN Hypoglycemia Protocol Glucose 15 gm 05/27/23 17:24 Glucose Oral Gel 15 Gm Of Glucse In 37.5 Gm Tube PO PRN PRN Hypoglycemia Protocol Hydromorphone HCl 0.5 mg 05/27/23 13:41 05/27/23 20:53 Hydromorphone Hcl Inj (*Crx) 1 Mg/Ml Syr IV PUSH 0.5 mg Q4H PRN Administration Pain Rated 7-10 Dextrose/Lactated Ringer's 1,000 mls @ 75 mls/hr 05/27/23 13:41 05/30/23 06:04 Dextrose 5%/Lactated Ringers IV CONT 75 mls/hr .[id number] JAMARCUS Administration Dextrose 1,000 mls @ 100 mls/hr 05/27/23 17:24 Dextrose 5% 1,000 Ml IVPB PRN PRN Hypoglycemia Protocol Insulin Aspart 2 - 5 units 05/28/23 08:00 05/30/23 08:10 Insulin Aspart (*Bkc) 100 Units/Ml SUB-Q Not Given TIDWM [facility] Protocol Insulin Aspart 1 - 2 units 05/27/23 21:00 05/29/23 23:17 Insulin Aspart (*Bkc) 100 Units/Ml SUB-Q Not Given HS [facility] Protocol Levothyroxine Sodium 100 mcg 05/28/23 06:30 05/30/23 06:04 Levothyroxine Sodium 100 Mcg Tablet PO 100 mcg DAILY@0630 JAMARCUS Administration Naloxone HCl 0.1 mg 05/27/23 13:41 Naloxone Hcl 0.4 Mg/Ml Vial IV PUSH Q2M PRN Opiate Reversal Ondansetron HCl 4 mg 05/27/23 13:41 Ondansetron Inj 4 Mg/2 Ml Vial IV PUSH Q6H PRN Nausea And Vomiting Pravastatin Sodium 20 mg 05/28/23 09:00 05/30/23 08:08 Pravastatin Sodium 20 Mg Tablet PO 20 mg DAILY JAMARCUS Administration Labs Labs: Laboratory Results - last 24 hr 05/29/23 05/29/23 05/29/23 11:39 16:43 21:42 WBC RBC Hgb Hct MCV MCH MCHC RDW Plt Count MPV Immature Gran % (Auto) Neut % (Auto) Lymph % (Auto) [place] % (Auto) Eos % (Auto) Baso % (Auto) Lymph # (Auto) [place] # (Auto) Eos # (Auto) Baso # (Auto) Abs Immat Gran (auto) Absolute Neuts (auto) Absolute Nucleated RBC Nucleated RBC % Sodium Potassium Chloride Carbon Dioxide Anion Gap BUN Creatinine Estim Creat Clear Calc Estimated GFR Glucose POC Capillary Glucose 101 87 110 H Calcium Magnesium Total Bilirubin AST Alkaline Phosphatase Total Protein Albumin 05/30/23 06:55 WBC 10.4 H RBC 3.64 L Hgb 10.2 L Hct 33.8 L MCV 92.9 MCH 28.0 MCHC 30.2 L RDW 15.8 H Plt Count 273 MPV 10.1 Immature Gran % (Auto) 0.3 Neut % (Auto) 68.5 Lymph % (Auto) 18.9 [place] % (Auto) 9.2 H Eos % (Auto) 2.6 Baso % (Auto) 0.5 Lymph # (Auto) 1.97 [place] # (Auto) 1.0 H Eos # (Auto) 0.3 Baso # (Auto) 0.1 Abs Immat Gran (auto) 0.03 Absolute Neuts (auto) 7.2 H Absolute Nucleated RBC 0.000 Nucleated RBC % 0.0 Sodium 136 L Potassium 3.7 Chloride 103 Carbon Dioxide 32 H Anion Gap 1 L BUN 15 Creatinine 1.00 Estim Creat Clear Calc 46 Estimated GFR 53 L Glucose 97 POC Capillary Glucose Calcium 9.0 Magnesium 2.0 Total Bilirubin 0.6 AST 20 Alkaline Phosphatase 69 Total Protein 6.0 L Albumin 3.0 L
[2023-05-30 10:21] LABS: Alanine Aminotransferase 5 U/L (6-35)
--- NOTE | 2023-05-30 10:40 | WPDUROPN2 ---
Progress Note: A&P Assessment and Plan (1) Left renal mass: Code(s): N28.89 - Other specified disorders of kidney and ureter Status: Acute Assessment and Plan: Underwent LEIX left radical nephrectomy with sparing of left adrenal gland on 05/27/[address] Palmer.? Tolerated procedure well.? Pathology revealed renal cell carcinoma with neg margins, reviewed with patient by Dr. Palmer. Continue to ambulate. Pain well controlled. Planning for discharge later today. Subjective Subjective Date/Time Seen: 05/30/23 10:40 Interval history: Denise is feeling well today. Pain much improved. Has been ambulating well and been out of bed. Overall feeling well. Tolerating her diet. No N/V/F/C. Voiding without difficulty. Review of Systems Review of Systems: All systems reviewed & are unremarkable except as noted in HPI and below Exam Narrative: General: Awake, alert, comfortable, no acute distress HEENT: Normocephalic, atraumatic, sclerae anicteric Respiratory: Normal respiratory effort, no accessory muscle use Abdomen: Nondistended, soft, nontender Skin: Normal coloration, warm and dry Neurologic: No focal neuro deficits noted Psychiatric: Appropriate mood and affect, judgment and insight intact Objective Data Vital Signs Vital Signs: Vital Signs - 24 hr 05/29/23 10:43 05/29/23 11:41 05/29/23 13:39 Temperature 97.8 F Pulse Rate 60 Respiratory Rate 16 Blood Pressure 138/67 Pulse Oximetry 97 Oxygen Delivery Nasal Cannula Nasal Cannula Oxygen Flow Rate 2 2 05/29/23 16:27 05/29/23 21:46 05/30/23 06:00 Temperature 99.2 F 98.7 F Pulse Rate 62 60 Respiratory Rate 17 20 Blood Pressure 154/66 H 182/56 H 154/66 H Pulse Oximetry 96 98 Oxygen Delivery Oxygen Flow Rate 05/30/23 07:37 05/30/23 08:08 Temperature 97.5 F L Pulse Rate 59 L 60 Respiratory Rate 18 Blood Pressure 129/59 L Pulse Oximetry 96 Oxygen Delivery Oxygen Flow Rate Intake/Output Intake/Output: Intake & Output 05/27/23 05/28/23 05/29/23 05/30/23 23:59 23:59 23:59 23:59 Intake Total 1300 2324 3530 1348.8 Output Total 250 1650 300 Balance 6519 526 7272 1348.8 Meds/Results Medications: Active Medications Generic Name Dose Route Start Last Admin Trade Name Freq PRN Reason Stop Dose Admin Hydrocodone Bitart/Acetaminophen 1 tab 05/28/23 05:00 05/30/23 06:14 Hydrocodone/Acetaminophen (*Crx) 5-325 Mg Tablet PO 1 tab Q4H PRN Administration Pain Rated 1-3 Hydrocodone Bitart/Acetaminophen 2 tab 05/28/23 05:00 05/28/23 16:48 Hydrocodone/Acetaminophen (*Crx) 5-325 Mg Tablet PO 2 tab Q4H PRN Administration Pain Rated 4-6 Amlodipine Besylate 5 mg 05/27/23 21:00 05/29/23 21:47 Amlodipine Besylate 5 Mg Tablet PO 5 mg HS JAMARCUS Administration Carvedilol 25 mg 05/27/23 17:00 05/30/23 08:08 Carvedilol 25 Mg Tablet PO 25 mg BID JAMARCUS Administration Dextrose 12.5 gm 05/27/23 17:24 Dextrose 50% 25 Gm/50 Ml Syringe IV PUSH PRN PRN Hypoglycemia Protocol Docusate Sodium 100 mg 05/27/23 17:00 05/30/23 08:08 Docusate Sodium 100 Mg Capsule PO 100 mg BID JAMARCUS Administration Glimepiride 1 mg 05/28/23 08:00 05/30/23 08:18 Glimepiride 1 Mg Tablet PO 1 mg DAILY@0800 JAMARCUS Administration Glucagon 1 mg 05/27/23 17:24 Glucagon For Inj 1 Mg Vial IM PRN PRN Hypoglycemia Protocol Glucose 15 gm 05/27/23 17:24 Glucose Oral Gel 15 Gm Of Glucse In 37.5 Gm Tube PO PRN PRN Hypoglycemia Protocol Hydromorphone HCl 0.5 mg 05/27/23 13:41 05/27/23 20:53 Hydromorphone Hcl Inj (*Crx) 1 Mg/Ml Syr IV PUSH 0.5 mg Q4H PRN Administration Pain Rated 7-10 Dextrose 1,000 mls @ 100 mls/hr 05/27/23 17:24 Dextrose 5% 1,000 Ml IVPB PRN PRN Hypoglycemia Protocol Insulin Aspart 2 - 5 units 05/28/23 08:00 05/30/23 08:10 Insulin Aspart (*Bkc) 100 Units/Ml SUB-Q Not Given TIDWM [facility] Protocol Insulin Aspart 1 - 2 units 05/27/23 21:00 05/29/23 23:17 Insulin Aspart (*Bkc) 100 Units/Ml SUB-Q Not Given HS [facility] Protocol Levothyroxine Sodium 100 mcg 05/28/23 06:30 05/30/23 06:04 Levothyroxine Sodium 100 Mcg Tablet PO 100 mcg DAILY@0630 JAMARCUS Administration Naloxone HCl 0.1 mg 05/27/23 13:41 Naloxone Hcl 0.4 Mg/Ml Vial IV PUSH Q2M PRN Opiate Reversal Ondansetron HCl 4 mg 05/27/23 13:41 Ondansetron Inj 4 Mg/2 Ml Vial IV PUSH Q6H PRN Nausea And Vomiting Pravastatin Sodium 20 mg 05/28/23 09:00 05/30/23 08:08 Pravastatin Sodium 20 Mg Tablet PO 20 mg DAILY JAMARCUS Administration Labs Labs: Laboratory Results - last 24 hr 05/29/23 05/29/23 05/29/23 11:39 16:43 21:42 WBC RBC Hgb Hct MCV MCH MCHC RDW Plt Count MPV Immature Gran % (Auto) Neut % (Auto) Lymph % (Auto) [place] % (Auto) Eos % (Auto) Baso % (Auto) Lymph # (Auto) [place] # (Auto) Eos # (Auto) Baso # (Auto) Abs Immat Gran (auto) Absolute Neuts (auto) Absolute Nucleated RBC Nucleated RBC % Sodium Potassium Chloride Carbon Dioxide Anion Gap BUN Creatinine Estim Creat Clear Calc Estimated GFR Glucose POC Capillary Glucose 101 87 110 H Calcium Magnesium Total Bilirubin AST ALT Alkaline Phosphatase Total Protein Albumin 05/30/23 06:55 WBC 10.4 H RBC 3.64 L Hgb 10.2 L Hct 33.8 L MCV 92.9 MCH 28.0 MCHC 30.2 L RDW 15.8 H Plt Count 273 MPV 10.1 Immature Gran % (Auto) 0.3 Neut % (Auto) 68.5 Lymph % (Auto) 18.9 [place] % (Auto) 9.2 H Eos % (Auto) 2.6 Baso % (Auto) 0.5 Lymph # (Auto) 1.97 [place] # (Auto) 1.0 H Eos # (Auto) 0.3 Baso # (Auto) 0.1 Abs Immat Gran (auto) 0.03 Absolute Neuts (auto) 7.2 H Absolute Nucleated RBC 0.000 Nucleated RBC % 0.0 Sodium 136 L Potassium 3.7 Chloride 103 Carbon Dioxide 32 H Anion Gap 1 L BUN 15 Creatinine 1.00 Estim Creat Clear Calc 46 Estimated GFR 53 L Glucose 97 POC Capillary Glucose Calcium 9.0 Magnesium 2.0 Total Bilirubin 0.6 AST 20 ALT 5 L Alkaline Phosphatase 69 Total Protein 6.0 L Albumin 3.0 L
[2023-05-30] MEDS: HYDROcodone/acetaminophen (*CRX) 5-325 MG TABLET 2 TAB PO (11:30)
[2023-05-30 11:42] LABS: Glucose Point of Care 117 mg/dl (65-105)
--- NOTE | 2023-05-30 12:47 | PM.DS ---
DS: Admitting Diagnosis Discharge Date 05/30/2023 Admitting Diagnosis Left renal mass DS: Discharge Diagnosis Discharge Diagnosis (1) Left renal mass: Code(s): N28.89 - Other specified disorders of kidney and ureter Status: Acute Assessment and Plan: DS: Summary Hospital Course Hospital Course: Date of admission: 05/27/2023 Date of discharge: 05/30/2023 Carolina De Anda is an 82 year old female who was recently found to have a left renal mass. She underwent hand assisted laparoscopic left radical nephrectomy with sparing of left adrenal gland on 05/27/[address] Palmer.?She tolerated the procedure well.?Her pain was well controlled following. She did have some elevated blood pressures which was managed with assistance of hospitalist service. Blood pressures improved. Tan catheter removed on POD #2 and she was able to void without difficulty. She was evaluated by PT during admission and was able to ambulate without difficulty. She was able to tolerate her diet and was having bowel movements. Pathology revealed renal cell carcinoma with negative margins, reviewed with patient by Dr. Palmer. She was feeling improved and felt comfortable with plans for discharge home. She will follow up with Dr. Palmer in 2 weeks. Short course of analgesics provided. We discussed worrisome symptoms for which to monitor or seek care. She was discharged in stable condition. Time Spent with Patient Time attestation: Total time spent providing and/or coordinating discharge services: 35 minutes Exam Narrative: General: Awake, alert, comfortable, no acute distress HEENT: Normocephalic, atraumatic, sclerae anicteric Respiratory: Normal respiratory effort, no accessory muscle use Abdomen: Nondistended, soft, nontender Skin: Normal coloration, warm and dry Neurologic: No focal neuro deficits noted Psychiatric: Appropriate mood and affect, judgment and insight intact DS: Data Data Completed and Pending Completed studies during hospitalization: Pending at discharge 05/27/23 10:27 Surgical [PTH] Routine Labs on day of discharge: Labs from last 24 hours 05/30/23 05/30/23 05/29/23 11:33 06:55 21:42 WBC 10.4 H RBC 3.64 L Hgb 10.2 L Hct 33.8 L MCV 92.9 MCH 28.0 MCHC 30.2 L RDW 15.8 H Plt Count 273 MPV 10.1 Immature Gran % (Auto) 0.3 Neut % (Auto) 68.5 Lymph % (Auto) 18.9 [place] % (Auto) 9.2 H Eos % (Auto) 2.6 Baso % (Auto) 0.5 Lymph # (Auto) 1.97 [place] # (Auto) 1.0 H Eos # (Auto) 0.3 Baso # (Auto) 0.1 Abs Immat Gran (auto) 0.03 Absolute Neuts (auto) 7.2 H Absolute Nucleated RBC 0.000 Nucleated RBC % 0.0 Sodium 136 L Potassium 3.7 Chloride 103 Carbon Dioxide 32 H Anion Gap 1 L BUN 15 Creatinine 1.00 Estim Creat Clear Calc 46 Estimated GFR 53 L Glucose 97 POC Capillary Glucose 117 H 110 H Calcium 9.0 Magnesium 2.0 Total Bilirubin 0.6 AST 20 ALT 5 L Alkaline Phosphatase 69 Total Protein 6.0 L Albumin 3.0 L 05/29/23 16:43 WBC RBC Hgb Hct MCV MCH MCHC RDW Plt Count MPV Immature Gran % (Auto) Neut % (Auto) Lymph % (Auto) [place] % (Auto) Eos % (Auto) Baso % (Auto) Lymph # (Auto) [place] # (Auto) Eos # (Auto) Baso # (Auto) Abs Immat Gran (auto) Absolute Neuts (auto) Absolute Nucleated RBC Nucleated RBC % Sodium Potassium Chloride Carbon Dioxide Anion Gap BUN Creatinine Estim Creat Clear Calc Estimated GFR Glucose POC Capillary Glucose 87 Calcium Magnesium Total Bilirubin AST ALT Alkaline Phosphatase Total Protein Albumin Discharge Plan Discharge Attending physician on discharge: Petr Palmer Consulting providers: Palma Loja Discharging Clinician: Karlee Hansen Patient Disposition: Home Health Service Activity: as tolerated Diet: regular Discharge Instructions: Per Care Coordination: [facility] will contact you prior to their first visit. [facility] will follow for RN and PT/OT eval and treat. [facility] can be contacted at [phone]. Nursing please fax discharge paperwork to [phone] Palmer 06/12/23 @ 1:15 pm You can take tylenol as needed for mild pain and [place] as needed for moderate-severe pain. Do not drive or drink alcohol while taking this medication. Resume Xarelto on 05/31/23 Patient Instructions: Antibiotic Form Stand Alone Forms: General Discharge Information Follow-up/Referrals: Petr Palmer MD [Physician] - 06/12/23 1:15 am Discharge Medications: New hydrocodone-acetaminophen 5-325 mg Tablet 1 tablet PO Q6H PRN (Reason: Pain Rated 5-10) Qty: 20 0RF docusate sodium 100 mg Capsule 100 mg PO BID Qty: 20 0RF Continued urea 20 % cream 1 applic topical BID Qty: 85 3RF carvedilol 25 mg tablet 25 mg PO BID amlodipine 5 mg tablet 5 mg PO HS glimepiride 2 mg tablet 1 mg PO DAILY pravastatin 20 mg tablet 20 mg PO DAILY coenzyme Q10 [CoQ-10] 100 mg Capsule 100 mg PO DAILY cholecalciferol (vitamin D3) 25 mcg (1,000 unit) Tablet 25 mcg PO DAILY alendronate 70 mg Tablet 70 mg PO WEEKLY levothyroxine 100 mcg tablet See Rx Instructions .ROUTE .COMPLEX Qty: 100 0RF Dose Instruction: TAKE 1 TABLET BY MOUTH DAILY Rx Instructions: TAKE 1 TABLET BY MOUTH DAILY Held Xarelto 20 mg tablet 20 mg PO QAM Hold Instructions: Resume on 05/21/23. Hold until seen by Urology Date of admission: 05/27/23 08:28 Primary Care Provider: Jessy Ryan Admitting Provider: Petr Palmer Attending physician on admission: Petr Palmer Condition: Improved
[2023-05-30 13:40] VITALS: BP 140/51; PULSE 63; RESP 16; TEMP 36.3; O2SAT 95
--- NOTE | 2023-05-30 15:09 | PC.NURSE ---
d/c papers signed, denies questions. iv out. all belongings taken out by . leaving by private car. papers faxed.
== END 2023-05-30 15:20 | disposition home health service (06) | DRG 658 ==
LOC: ANH3MEDSUR 14:26
PROVIDERS: Nurse Practitioner Acute Care; Admitting Provider Urology; PCP Family Medicine; Visit Provider Urology
PROC: 0TT14ZG Resection of Left Kidney, Percutaneous Endoscopic Approach, Hand-Assisted (ICD-10-PCS; principal; 2023-05-27 07:30)
DX: C64.2 Malignant neoplasm of left kidney, except renal pelvis (principal); E03.9 Hypothyroidism, unspecified; D64.9 Anemia, unspecified; I12.9 Hypertensive chronic kidney disease with stage 1 through stage 4 chronic kidney disease, or unspecified chronic kidney disease; N18.30 Chronic kidney disease, stage 3 unspecified; E11.22 Type 2 diabetes mellitus with diabetic chronic kidney disease; I48.0 Paroxysmal atrial fibrillation; M06.9 Rheumatoid arthritis, unspecified; M70.60 Trochanteric bursitis, unspecified hip; M81.0 Age-related osteoporosis without current pathological fracture; E78.2 Mixed hyperlipidemia; E55.9 Vitamin D deficiency, unspecified; E66.9 Obesity, unspecified; Z68.38 Body mass index [BMI] 38.0-38.9, adult; Z95.0 Presence of cardiac pacemaker; Z86.73 Personal history of transient ischemic attack (TIA), and cerebral infarction without residual deficits; Z79.01 Long term (current) use of anticoagulants
CPT/HCPCS: 36415; 80048; 80053; 82948; 83735; 85025; 88307; 92610; 97110; 97161; 97166; 97530; 97535; A9270; J0360; J0690; J1100; J1170; J2371; J2405; J2704; J3010; J7120; J7121

== ENCOUNTER 2023-09-03 07:48 | Outpatient (CLI) | payer MEDICARE, SELFPAY ==
--- NOTE | ~2023-09-03 | XR_ITS ---
XR chest 2V 09/03/2023 08:11 Indication: Malignant neoplasm of the left kidney Procedure: 2 view chest Comparison: Comparison to multiple prior studies sequentially, with oldest reviewed study dated 11/25. Findings: Pacemaker leads in expected position. Borderline heart size. No focal air space disease, pu lmonary edema, pleural effusion or suspected pneumothorax. There are no suspicious pulmonary nodules. No acute osseous abnormality. Mild thoracic spondylosis. Impression: 1: No acute cardiopulmonary disease.. Reviewed, dictated and finalized at location B. Impression: 1: No acute cardiopulmonary disease..
--- NOTE | ~2023-09-03 | CT_ITS ---
CT abdomen pelvis wo/w con Ordering provider: Petr Palmer MD History: 83 years Female with . MAL SUZANNA OF LEFT KIDNEY . Comparison: May 09, 2023 Technique: CT abdomen and pelvis with IV and without oral contrast. Automated exposure control and it erative reconstruction technique were employed. The dose-length product was 1664.98 mGy-cm. 100 mL Om nipaque 350 was given IV. Findings: VISUALIZED LOWER CHEST: Dependent atelectatic changes. Slight cardiomegaly. Underlying emphysematous changes. UPPER ABDOMINAL ORGANS: Liver: Normal. CBD is dilated and measures 1 cm. Slight dilatation of the intrahepatic ducts. Gallbladder: Status post cholecystectomy. Spleen: Normal. Stomach/duodenum: Small sliding hiatus hernia. Pancreas: Normal. Adrenals: Slightly prominent left adrenal glands with possible adenoma measuring 2.3 cm. Follow-up ad vised. Kidneys: Status post left nephrectomy. No definite evidence of local recurrence seen in the left bon l surgical bed. Minimal fat stranding seen in the area. Tiny stone in the right kidney lower pole. Lo bulated outline of the right kidney. Multiple tiny cysts in the right kidney. PELVIC ORGANS: The bladder is slightly underfilled. Uterus: Calcified fibroid seen posteriorly. BOWEL AND MESENTERY: Colon: No evidence of diverticulitis. The appendix is not demonstrated. Small Bowel: Normal. No obstruction. Peritoneum/mesentery: No free air or free fluid. No mesenteric lymphadenopathy. Tiny enhancing lymph node measuring 6 mm is seen. RETROPERITONEUM: Mild atheromatous disease of the abdominal aorta. No retroperitoneal lymphadenopat hy. MUSCULOSKELETAL: Superficial soft tissues: Minimal fat stranding in the left anterior abdominal wall may be postoperat ruben. Small fat-containing umbilical hernia. Otherwise, The superficial soft tissues are normal. Bones: Age appropriate degenerative changes of the spine. Minimal anterolisthesis at the level of L5- S1. IMPRESSION: 1. No evidence of recurrence in the left renal area. 2. Tiny stone in the right kidney lower pole with multiple small cysts. 3. Slightly prominent left adrenal glands with possible adenoma measuring 2.3 cm. Follow-up advised. 4. Slight dilatation of the CBD with slight dilatation of the intrahepatic biliary ducts. 5. Calcified fibroid. Reviewed, dictated and finalized at location A. IMPRESSION: 1. No evidence of recurrence in the left renal area. 2. Tiny stone in the right kidney lower pole with multiple small cysts. 3. Slightly prominent left adrenal glands with possible adenoma measuring 2.3 cm. Follow-up advised. 4. Slight dilatation of the CBD with slight dilatation of the intrahepatic nicole iary ducts. 5. Calcified fibroid.
[2023-09-03 08:20] LABS: Estimated Glomerular Filt Rate 31
== END 2023-09-03 07:49 | disposition home or self-care (01) ==
PROVIDERS: PCP Family Medicine; Visit Provider Urology
DX: C64.2 Malignant neoplasm of left kidney, except renal pelvis (principal); N20.0 Calculus of kidney; N28.1 Cyst of kidney, acquired
CPT/HCPCS: 71046; 74178; Q9967

== ENCOUNTER 2024-02-13 14:30 | Outpatient (RCR) | payer MEDICARE, SELFPAY ==
--- NOTE | 2024-01-07 13:26 | OPREHPOC ---
Outpatient Therapy Plan of Care This is a Multidisciplinary Plan of Care that may contain components documented by all disciplines (PT, OT, and ST.) PT Problem 1 PT Problem #1 Knowledge Deficit PT Goal 1 Goal / Goal Update *indep with HEP Target Visit 10 PT Problem 2 PT Problem #2 Impaired Strength PT Goal 1 Goal / Goal Update increase LE strength to improve mobility and transfer skills: 1* R and L LE supine exercises x 20 reps 2* sit/stand from 18 seat without UE use x 3 reps Target Visit 10 PT Problem 3 PT Problem #3 Impaired Functional Mobility PT Goal 1 Goal / Goal Update improve balance and transfer skills for safety with mobility and decrease risk for falls: 1* Tinetti balance/gait score of 26/28 2* 5 reps sit/stand time of 18 seconds 3* 2 minute walking test distance with cane 200' 4* 4 steps with 1 hand railing, modified indep Target Visit 10
--- NOTE | 2024-01-07 13:26 | PTOPEVAL1 ---
Assessment and note entered by Kathy Scott, PT Evaluation Information Assessment Status Evaluation ICD-10 Condition Codes (PT) Difficulty Walking R26.2,R26.9,Weakness R53.1 Onset June 2023 Subjective Information no falls in the past 6 months; gradual increase in weakness and ability to walk; In April after having nephrectomy, used the wheeled walker and had some therapy at home, then started using the cane; Activity: home with , use of cane; have 4 steps into home; have a basement, but do not need to go down there decrease going out into community, not going out to eat as much; have not been going to their camper, due to her problems getting in/out of-- have 3 steps; do not do any leg exercises; not very active and not cooking as much as used to GOAL: walk better, not have to use the cane anymore; Reported Pain Level Pain Score 0: Self Report Assessment PT Clinical Summary Denise has the diagnosis of weakness, unsteady on feet. She reports gradual decrease in mobility and using the cane after her nephrectomy in April. She is not going out into the community very often and they have stopped going to their camper. was present during eval and supportive to pt. LE functional scale rating of 64% limitation in activity level. With the evaluation: she has decreased R and L LE strength; requires both arms to transfer sit/ stand; 5 reps sit/stand time of 25 seconds; 2 minute walking test distance with cane of 125'; Tinetti balance/gait score of 16/28. Skilled PT services are indicated to increase LE strength, gait and balance skills, to improve mobility and safety in community. Plan of Care Interventions Gait Training,Neuro Re-education,Patient/Caregiver Education,Therapeutic Activities,Therapeutic Exercise PT Services Indicated Yes Treatment Frequency and 1-2x/wk for 10 visits Duration These treatments will address the objective and functional deficits as defined above. The patient will be advanced safely and appropriately in order for the patient to progress towards his/her prior level of function. Additional exercises will be introduced and as well as a comprehensive home exercise program upon discharge, if needed, ?to ensure carryover of functional gains achieved in the clinic. This treatment plan has been reviewed and agreement upon by the patient.
--- NOTE | 2024-02-09 13:17 | PCPTNOTE ---
pt did not show for today's reevaluation appt. Called and she had the wrong time for today's appt.
--- NOTE | 2024-02-13 15:07 | PTOPDC ---
Assessment and note entered by Kathy Scott, PT Assessment Status Discharge ICD-10 Condition Codes (PT) Difficulty Walking R26.2,Abnormalities of gait and mobility R26.9,Weakness R53.1 Onset June 2023 Subjective Information am walking a little better; use the cane most of the time; have not had any falls; have been doing the exercises at home; have not been walking much and not going out in public; does the shopping; feel like ready to be done with therapy. Reported Pain Level Pain Score 0: Self Report Assessment PT Clinical Summary Denise has received 10 PT sessions. Compared to the initial evaluation: Tinetti balance/gait score from 16 to 21/28; 5 reps sit/ stand from 25 seconds with use of both arms to 30 seconds without use of UE's; 2 minute walking test distance, with cane, from 125' to 150'; gait pattern with flat foot pattern, decreased step length and lateral hip/trunk motion; on 4 steps is indep, using cane and one hand railing; increase in R and L LE strength; LE functional scale rating from 64 to 61% limitation in activity level; education for HEP and correct gait pattern completed. The goals were partially met. Discharge from PT. She is to continue with her HEP and increase walking as tolerated. Plan of Care PT Services Indicated No
== END 2024-02-16 12:05 | disposition home or self-care (01) ==
LOC: ANHPT 14:30
PROVIDERS: PCP Family Medicine; Visit Provider Student in an Organized Health Care Education/Training Program
DX: R54 Age-related physical debility (principal); R26.81 Unsteadiness on feet
CPT/HCPCS: 97110; 97116; 97161; 97530

== ENCOUNTER 2024-03-08 14:49 | Outpatient (CLI) | payer MEDICARE, SELFPAY ==
--- NOTE | ~2024-03-08 | CT_ITS ---
CLINICAL INDICATION: Malignant neoplasm left kidney, post left-sided nephrectomy on 05/27/2023 COMPARISON: 09/03/2023 and 05/09/2023. TECHNIQUE: Multiple contiguous axial images of the abdomen and pelvis were performed following the ad ministration of with 100 mL Omnipaque-350 intravenous contrast The dose-length product (DLP) was 1367.10 mGy-cm. Automated exposure control and iterative reconstruction technique were employed. FINDINGS/OBSERVATIONS: Visualized lower thorax: Redemonstration of bibasilar pleural thickening, unchanged from prior. The remainder of the lungs are otherwise clear. The heart is enlarged, unchanged, and without pericardial effusion. Pacemaker leads are incidentally noted. Small hiatal hernia is present. Liver: The liver demonstrates homogeneous enhancement and is not enlarged measuring 16 cm in longitudinal di mension. Gallbladder and biliary system: The gallbladder is surgically absent. Pancreas: The pancreas enhances homogeneously without ductal dilatation. Spleen: The spleen enhances homogeneously and is not enlarged measuring 8 cm in longitudinal dimension. Kidneys: Multiple clips are redemonstrated within the retroperitoneum, to the left of midline within the left renal surgical bed. No abnormal soft tissue attenuation is identified within the left kidney surgical bed. Multiple clips within the retroperitoneum to the left of midline just below the aortic bifurcation, w ith the distal left ureter extending into the bladder. The right kidney demonstrates a irregular nodular contour, unchanged from prior with a bilobed focus of decreased attenuation within the upper pole, unchanged in size and morphology. The right ureter is unremarkable along its course. Adrenal glands: Both the right and left adrenal gland are unremarkable. Gastrointestinal tract: Trace fecal stasis. Colonic diverticulosis without surrounding inflammatory change. Appendix: The appendix is not definitively visualized. However, no pericecal inflammatory change is identified suggest the presence of acute appendicitis. Vasculature: Calcified atherosclerotic disease without aneurysmal dilatation. Lymph nodes: No pathologically enlarged or morphologically suspicious lymph nodes within the retroperitoneum or at the root of the mesentery. Pelvic structures: The bladder is only minimally distended, and otherwise unremarkable. The uterus is anteverted and retroflexed and contains multiple calcifications suggesting prior fibroi d disease. Body wall and musculoskeletal: Small fat-containing umbilical hernia. Significant degenerative disease within the lumbosacral spine with osteophyte formation, disc space n arrowing, endplate changes and vacuum phenomena. No lytic or blastic lesions are identified. IMPRESSION: Post adrenal sparing left-sided nephrectomy in May of 2023 without evidence of recurrent or residua l disease, as detailed above. Reviewed, dictated and finalized at location A. H WORKER BINDING IMPRESSION: Post adrenal sparing left-sided nephrectomy in May of 2023 without evidence o f recurrent or residual disease, as detailed above.
--- NOTE | ~2024-03-08 | XR_ITS ---
CHEST RADIOGRAPH, PA AND LATERAL CLINICAL HISTORY: MAL SUZANNA OF L KIDNEY . COMPARISON: 09/03/2023 TECHNIQUE: PA and lateral views of the chest. FINDINGS The left mid lung is partially obscured due to pacemaker generator. Wires project over the right atrium and right ventricle. The remainder of the cardiomediastinal silhouette is otherwise unremarkable. The lungs are clear. Visualized osseous structures and soft tissues are unremarkable. IMPRESSION: No focal infiltrate or effusion. Reviewed, dictated and finalized at location A. ET GRINDER
[2024-03-08 15:30] LABS: Estimated Glomerular Filt Rate 31
== END 2024-03-08 14:50 | disposition home or self-care (01) ==
PROVIDERS: PCP Family Medicine; Visit Provider Urology
DX: C64.2 Malignant neoplasm of left kidney, except renal pelvis (principal); Z90.5 Acquired absence of kidney
CPT/HCPCS: 71046; 74177; Q9967

== ENCOUNTER 2024-09-08 09:20 | Outpatient (CLI) | payer MEDICARE, SELFPAY ==
--- NOTE | ~2024-09-08 | XR_ITS ---
Clinical Indication: Malignant neoplasm of kidney PA and lateral views of the chest: Comparison: 03/08/2024 Findings: The lungs are clear, without evidence of focal consolidation or pleural effusion. Cardiome diastinal silhouette is stable, with pacemaker device. Bones and soft tissues are unremarkable. Impression: Clear lungs. Reviewed, dictated and finalized at location . Impression: Clear lungs.
--- NOTE | ~2024-09-08 | CT_ITS ---
CT of the Abdomen and Pelvis: Indication: Renal cell carcinoma Technique: 2.5 mm axial scans were obtained through the abdomen and pelvis prior to and following in travenous administration of 100 cc of Omnipaque 350. Dose reduction technique was used on this scan b y utilizing automated exposure control and iterative reconstruction technique. The dose-length produc t (DLP) was 1755.57 mGy-cm. COMPARISON: 03/08/2024 Findings: Scans through the lung bases are unremarkable. The liver, spleen, pancreas, gallbladder, and adrenal glands are within normal limits. Status post le ft nephrectomy. Punctate nonobstructing right renal stone present. There are atherosclerotic calcific ations of the aorta. No lymphadenopathy. No bowel obstruction or bowel wall thickening. There is no evidence to suggest acute appendicitis. Images through the pelvis were performed. Exophytic partially calcified uterine fibroid present. Urin amado bladder unremarkable. No other pelvic mass seen. No ascites. Impression: No evidence for active malignancy or metastatic disease. Status post left nephrectomy. Uterine fibroid, as above. Reviewed, dictated and finalized at location . Impression: No evidence for active malignancy or metastatic disease. Status post left nephr ectomy. Uterine fibroid, as above.
--- OUTSIDE RECORDS SUMMARY | 2024-09-08 09:30 | XMS_ITS | Clinical Summary ---
Author Organization [facility] Address [address] [place] [address] Phone Care Team Providers Care Wader Boot Top Assembler Name Role Phone Estephania Samayoa MD Primary Care Provider + Social History Tobacco Use Types Packs/Day Years Used Date Smoking Tobacco: Never Assessed Comments Unknown Sex and Gender Information Value Date Recorded Sex Assigned at Not on file Legal Sex Female 5:40 AM TRIPOLER Gender Identity Not on file Sexual Orientation Not on file Plan of Treatment Health Maintenance Due Date Last Done Comments DTAP/TDAP/TD VACCINES (1 - Tdap) 1961 PNEUMOCOCCAL VACCINE 50+ YEARS (1 of 1 - PCV) 06/06/18 93 ZOSTER VACCINE (1 of 2) 1992 OSTEOPOROSIS SCREENING 06/07/2007 RSV VACCINE (60+ or ) (1 - 1-dose 75+ series) 2017 INFLUENZA VACCINE (#1) 2024 Insurance MEDICARE PART A AND B BC SUPP Care Teams Wader Boot Top Assembler Relationship Specialty Start Date End Date Estephania Samayoa MD PCP - General 02/28/08
--- OUTSIDE RECORDS SUMMARY | 2024-09-08 09:30 | XMS_ITS | Clinical Summary ---
Author Organization [facility] [place] [address] Address [address] [place] [address] Care Team Providers Care Lever Operator Name Role Phone Wagner Espinoza MD Primary Care Provider Allergies Active Allergy Reactions Criticality Noted Date Comments Codeine Headache Low Sulfa (Sulfonamide Antibiotics) Unknown Low Medications calcium citrate-vitamin D3 (CITRACAL REGULAR) 250 mg calcium- 200 unit tablet 0 2 Active ibuprofen (ADVIL) 200 mg tablet take 1 tablet (200MG) by oral route every 6 hours as needed with food 0 2 Active multivitamin-iro n-folic acid (CENTRUM ULTRA WOMEN'S) 18-400 mg-mcg tablet take 1 tablet by oral route every day with food 0 2 Active omega-3 fatty acids-fish oil 340-1,000 mg capsule take 1 by Oral route 2 times every 0 2 Active glimepiride (AMARYL) 2 mg tablet take 1/2 Tablet (1MG) by oral route every day 0 2 Active valsartan-hydroc hlorothiazide (DIOVAN-HCT) 320-25 mg per tablet take 1 tablet by oral route every day 0 0 5 Active Additional Information Patient not taking.Reported on 07/01/2024 amLODIPine (NORVASC) 5 mg tablet take 2 tablets by oral route every night 0 0 5 Active levothyroxine (SYNTHROID, LEVOTHROID) 100 mcg tablet Take 1 tablet (100 mcg total) by mouth daily Active pravastatin (PRAVACHOL) 20 mg tablet Take 1 tablet (20 mg total) by mouth daily Active ferrous sulfate 325 mg (65 mg of elemental iron) tabletIndication s:Iron Deficiency Anemia Take 1 tablet (325 mg total) by mouth daily with breakfast Active carvediloL (COREG) 25 mg tablet Take 1 tablet (25 mg total) by mouth 2 (two) times a day with meals Active rivaroxaban (Xarelto) 20 mg tabletIndication s:Paroxysmal atrial fibrillation (HCC) Take 1 tablet (20 mg total) by mouth daily 90 tablet 2 3 Active Active Problems Problem Noted Date Diagnosed Date Paroxysmal atrial fibrillation 04/23/2018 SSS (sick sinus syndrome) 01/23/2017 Presence of cardiac pacemaker 01/23/2017 Overview (09/07/2020): Medtronic Dual Pacemaker, Dx; SSS, PAF. DOI 02/28/[address] Spivey, chronic leads 12/21/07. Patient declines remote monitoring. Office checks Q6 mo. 03/2018-Device Advisory/Recall for poss Circuit Error. Encounters Date Type Department Care Team Description 07/01/2024 8:45 AM CDT Office Visit [facility] Cardiology at [address] [place] [address] Jeferson Spivey MD SSS (sick sinus syndrome) (HCC) (Primary Dx); Presence of cardiac pacemaker; Paroxysmal atrial fibrillation (HCC) from Last 3 Months Medical History Medical History Date Comments Hx Other Medical Diabetes Type I I Adiposity Obesity Hypertension Hypertension Family History Medical History Relation Name Comments Heart attack Father 2 Myocardial Infa rction; Cause of : Myocardial Infarction Relation Name Status Comments Father 1 Father 2 Social History Tobacco Use Types Packs/Day Years Used Date Smoking Tobacco: Never Smokeless Tobacco: Never Tobacco Cessation:Counseling Given: Not Answered Alcohol Use Standard Drinks/Week Comments Yes 1 (1 standard drink = 0.6 oz pur e alcohol) Comments Unknown Sex and Gender Information Value Date Recorded Sex Assigned at Not on file Legal Sex Female 1:57 AM BROOM BUNDLER Gender Identity Not on file Sexual Orientation Not on file Obstetrics History Last Filed Vital Signs Vital Sign Reading Time Taken Comments Blood Pressure 128/86 07/01/2024 8:34 AM CDT Pulse 91 07/01/2024 8:34 AM CDT Temperature - - Respiratory Rate 12 04/27/2020 11:16 AM BROOM BUNDLER Oxygen Saturation 94% 07/01/2024 8:34 AM CDT Inhaled Oxygen Concentration - - Weight 98.4 kg (217 lb) 07/01/2024 8:34 AM CDT Height 162.6 cm (5' 4) 07/01/2024 8:34 AM CDT Body Mass Index 37.25 07/01/2024 8:34 AM CDT Plan of Treatment Health Maintenance Due Date Last Done Comments Depression Screening 1942 Fall Risk Assessment 1942 Osteoporosis Screening-Bone Density Scan 1942 DTaP/Tdap/Td Vaccine (1 - Tdap) 1953 Hepatitis B Screening 1960 Well Visit 65+ 06/07/2007 Zoster Vaccine (2 of 3) 04/25/2014 02/28/2014 Pneumococcal vaccine 65+ (2 of 2 - PCV) 02/24/2015 02/24/2014 Influenza Vaccine (Season Ended) 2024 12/17/2018, 11/06/2017, 11/24/2016, Additional history exists Insurance [facility] MEDICARE ADVANTAGE [facility] MEDICARE ADVANTAGE Care Teams Lever Operator Relationship Specialty Start Date End Date Wagner Espinoza MD [address] [place] [address] PCP - General Family Medicine 05/28/24
--- OUTSIDE RECORDS SUMMARY | 2024-09-08 09:30 | XMS_ITS | Referral Summary ---
Author Organization [facility] [place] [address] Address [address] [place] [address] Care Team Providers Care Irrigator Name Role Phone Wagner Espinoza MD Primary Care Provider Encounters Date Type Department Care Team Description 07/01/2024 8:45 AM CDT Office Visit [facility] Cardiology at [address] [place] [address] Jeferson Spivey MD SSS (sick sinus syndrome) (HCC) (Primary Dx); Presence of cardiac pacemaker; Paroxysmal atrial fibrillation (HCC) from Last 3 Months Allergies Active Allergy Reactions Criticality Noted Date [...] mo. 03/2018-Device Advisory/Recall for poss Circuit Error. Social History Tobacco Use Types Packs/Day Years Used Date Smoking Tobacco: Never Smokeless Tobacco: Never Tobacco Cessation:Counseling Given: Not Answered Alcohol Use Standard Drinks/Week Comments Yes 1 (1 standard drink = 0.6 oz pur e alcohol) Comments Unknown Sex and Gender Information Value Date Recorded Sex Assigned at Not on file Legal Sex Female 1:57 AM PROGRAM CHECKER Gender Identity Not on file Sexual Orientation Not on file Last Filed Vital Signs Vital Sign Reading Time Taken Comments Blood Pressure 128/86 07/01/2024 8:34 AM CDT Pulse 91 07/01/2024 8:34 AM CDT Temperature - - Respiratory Rate 12 04/27/2020 11:16 AM PROGRAM CHECKER Oxygen Saturation 94% 07/01/2024 8:34 AM CDT Inhaled Oxygen Concentration - - Weight 98.4 kg (217 lb) 07/01/2024 8:34 AM CDT Height 162.6 cm (5' 4) 07/01/2024 8:34 AM CDT Body Mass Index 37.25 07/01/2024 8:34 AM CDT Plan of Treatment Not on file Insurance [employer] [place] [id number] MEDICARE ADVANTAGE [facility] MEDICARE Address: [address] [address] [place] [address] MEDICARE ADVANTAGE [facility] MEDICARE Address: [address] [address] [place] [address] [place] [phone] Care Teams Irrigator Relationship Specialty Start Date End Date Wagner Espinoza MD [address] [place] [address] PCP - General Family Medicine 05/28/24
--- OUTSIDE RECORDS SUMMARY | 2024-09-08 09:31 | XMS_ITS | Data Portability ---
Author Organization [facility], Main Office Address [address] [place] [address] Care Team Providers Care Keyboard Instrument Repairer Name Role Phone NEETA DELEON Primary Care Provider NEETA DELEON Referring Provider Assessment Encounter Date Assessment Date Assessment LastModified by Organization Details LastModified Time 11/21/2022 11/21/2022 patient has trochanteric bursitis left hip x-rays show significant hypertrophic changes at the insertion of the abductors. She has had chronic issues here we talked about treatment options I offered her a shot of cortisone into the point of maximal tenderness over the trochanteric bursa she declined. She states the last steroid injection she had from her primary care physician has helped somewhat. She wants to give this more time. I offered her formal therapy she declined I did instruct her on stretching and maneuvers to help with the issue. We talked about ice as well particularly the end of a busy day. She did want to try a course of oral prednisone we will get her set up for this. I will see her back in 6 weeks see what impact treatment has had she voiced understanding agrees above plan. If her symptoms become significant chronically surgical intervention could be an option for her to debride the large spur and bursa. She will try conservative measures for now. [email or web address] Not available 11/21/2022 10:31:20 Plan of Treatment Reminders Order Date Submit Date Provider Last Modified By Organization Details Last Modified Time Details Appointments None recorded. Lab None recorded. Referral None recorded. Procedures None recorded. Surgeries None recorded. Imaging XR, hip + pelvis, unilateral, 1 view 2022 023 [email or web address] [facility] [place], [address], [place], [address], 3 12:07:17 Medication Orders prednisone 10 mg tablets in a dose pack 2022 023 [email or web address] [id number], [address], [place], [phone], 3 12:07:17 Patient TargetsNo targets recorded. Patient InstructionsNo instructions recorded. Reason for Referral None Reported. Results Created Date Observation Date Name Description Value Unit Range Abnormal Flag Note LastModifiedBy Organization Detail LastModifiedTime 11/22/19 23 XR, hip + pelvi s, unila teral , 1 view No observ ation record ed. [email or web address] [facility] [address], [place], [address], 11/21/2022 10:32:46 Result Notes None recorded. Problems Name Problem SNOMED Code Status Onset Date Resolution Date Notes Provider Name and Address Organization Details Recorded Time Pain of left hip joint 9020209807268 00 Active 2022 SHAYY Ledesma, [facility] 3 09:52:09 Trochanteri c bursitis of left hip 0646329980243 03 Active 2022 DELMY Jackson [address] [facility], [facility] [address], [place], [address] [facility] 3 10:31:29 Problem Notes None recorded. Medical Equipment None Reported. Allergies Allergen ID Allergen Name Allergen Category Reaction Reaction Severity Criticality Documentation Date Start Date Code Code System Note Provider Name and Address Organization Details Recorded Time 70263 Substance with sulfonami de structure and antibacte rial mechanism of action (substanc e) medicatio n Not available Not available Not available 11/21/2022 70644 8000 SNOMED SHAYY Ledesma, [employer] [facility] 3 09:55:01 Medications Name Sig Start Date Stop Date Status Note LastModified by Organization Details LastModified Time carvedilol 25 mg tablet TAKE 1 TABLET BY MOUTH TWICE DAILY active Not Available Not Available No t Available prednisone 10 mg tablet active Not Available Not Available No t Available alendronate 70 mg tablet TAKE ONE TABLET BY MOUTH EVERY WEEK DIRECTED active Not Available Not Available No t Available amlodipine 5 mg tablet TAKE 1 TABLET BY MOUTH DAILY active Not Available Not Available No t Available glimepiride 2 mg tablet TAKE 1 TABLET BY MOUTH DAILY active Not Available Not Available No t Available prednisone 10 mg tablets in a dose pack Take 1 tab by mouth, 3 times a day for 3 daysTake 1 tab by mouth 2 times a day for 2 daysTake 1 tab by mouth once a day for 1 day 2022 active Not Available Not Available Not Avai lable levothyroxine 100 mcg tablet TAKE 1 TABLET BY MOUTH DAILY active Not Available Not Available No t Available pravastatin 20 mg tablet TAKE 1 TABLET BY MOUTH DAILY active Not Available Not Available No t Available furosemide 20 mg tablet TAKE 1 TABLET BY MOUTH EVERY MORNING active Not Available Not Available No t Available Xarelto 20 mg tablet TAKE 1 TABLET BY MOUTH DAILY active Not Available Not Available No t Available Vitals Date Recorded Body height Body mass index (BMI) Body weight Provider Name and Address Organization Details Last Updated DateTime 11/21/2022 162.56 cm 37.8 kg/m2 24092.32 g SHAYY Ledesma [facility] 11/21/2022 09:54:34 Social History None recorded. Functional Status Question Answer Note LastModified by Organization D etails LastModified Time What is your level of alcohol consumption? None [email or web address] Information not available 11/21/2022 Mental Status None recorded. Family History Relationship Description Onset Age of this Age Resolved Age Notes LastModified by Organization Details LastModified Time Mother Hypertensive disorder Not available 2022 09:55:20 Medical History Condition Response ARTHRITIS Y DIABETES, TYPE Y Gynecological HistoryNo gynecological history recorded. Obstetrics History GPAL:G 0 P 0 0 0 0 Past Encounters Encounter ID Performer Location Encounter Start Date Encounter Closed Date Diagnosis/Indication Diagnosis SNOMED-CT Code Diagnosis ICD10 Code Diagnosis Note [id number] Cameron Dukes MD [facility] [place] [address] [place] [address] 11/21/2022 09:19:45 11/21/2022 10:37:37 Pain of left hip joint 3749226747 97294 M25.552 Trochanter ic bursitis of left hip 9201532453 29428 M70.62 Health Concerns Section Related Observation LastModified by Organization Detai ls LastModified Time None Recorded Concern Status LastModified by Organization Details LastModified Time None Recorded Advance Directives Directive None Recorded Payers Insurance Date Sequence Insurance Name Policy Number Policy Teixeira Covered Member ID Teixeira Member ID Guarantor Name 11/21/2022 1 [facility] (MEDICARE REPLACEMENT/A DVANTAGE - HMO) [id number] Carolina De Anda [id number] Carolina De Anda Notes Date Note Type Note Provider Name and Address Organization Details Recorded Time 11/21/2022 text/html the patient is a n 82-year-old female who presents with an ongoing history of left hip pain over the trochanteric region. She states been going on chronically many months. She saw her primary care physician recently she was given a shot of steroids it is not clear whether this was into the trochanteric bursa verses an IM injection. She states she is on blood thinners cannot take Nonsteroidal anti-inflammatory medication. No other treatment was instituted. She states she has aching pain on the lateral left hip radiates down the side of her leg a little bit denies any back pain certainly cannot sleep on that side if she presses on the left hip laterally or bumps it this causes significant stinging stabbing pain. She has no groin pain no anterior thigh pain no radicular pain. She denies any weakness does walk with a limp because of her left hip pain if she sits too long it really starts to throb and ache keeps her awake at night as well. She comes in today for initial evaluation treatment of her left hip pain which sounds like trochanteric bursitis.Past medical history sheet was reviewed and signed on the intake sheet of today's date drug allergies current medications family social history previous surgical history 10 point review of systems was reviewed and discussed in detail today with the patient. DELMY Jackson [address] [facility], [facility] [address], [place], [address], [place] [facility] 11/21/2022 10:33:25 OBGyn Episode No OBEpisode recorded.
[2024-09-08 10:05] LABS: Estimated Glomerular Filt Rate 33
== END 2024-09-08 09:21 | disposition home or self-care (01) ==
PROVIDERS: PCP Family Medicine; Visit Provider Urology
DX: C64.2 Malignant neoplasm of left kidney, except renal pelvis (principal); Z90.5 Acquired absence of kidney; D25.9 Leiomyoma of uterus, unspecified
CPT/HCPCS: 71046; 74178; Q9967

== ENCOUNTER 2024-12-22 11:41 | Outpatient (CLI) | payer MEDICARE, SELFPAY ==
--- NOTE | ~2024-12-22 | DEXA_ITS ---
Bone Density Report Name: GRACIELA CHANDLER Age: 84 Sex: Female Ethnicity: White Date of : 1940 Indication: postmenopausal; screening for osteoporosis; height loss; rheumatoid arthritis; Referring Provider: JAVIER ARIZA Study: Bone densitometry was performed. Exam Date: December 22, 2024 Accession number: [id number] Bone Density: Region BMD T-score Z-score Classification AP Spine(L1, L2, L3) 1.080 0.6 3.3 Normal Femoral Neck (Left) 0.520 -3.0 -0.5 Osteoporosis Total Hip (Left) 0.583 -2.9 -0.7 Osteoporosis Femoral Neck (Right) 0.463 -3.5 -1.1 Osteoporosis Total Hip (Right) 0.573 -3.0 -0.8 Osteoporosis Total Hip Mean 0.578 -3.0 -0.8 Osteoporosis World Health Organization criteria for BMD impression classify patients as: Normal (T-score at or above -1.0), Osteopenia (T-score between -1.0 and -2.5), or Osteoporosis (T-score at or below -2.5). 10-year Fracture Risk: FRAX not reported because: Some T-score for Spine Total or Hip Total or Femoral Neck at or below -2.5 Clinical Information Provided by Patient: Has rheumatoid arthritis Has used the following medications: Calcium Patient maximum height was 65 Menopause Age: 69 No regular weight bearing exercise Drinks caffeinated beverages Onset of menses at age 13 Number of children 2 Missed period for more than 6 months in a row Impression: The patient has osteoporosis, based on the Right Femoral Neck T-score. Discussion: INCREASED RISK OF FRACTURE. BONE DENSITY IS UNDESIRABLY LOW AT ONE OR MORE SKELETAL SITES, CONSISTENT WITH POSTMENOPAUSAL OSTEOPOROSIS. This patient's lowest T-score meets the World Health Organization's (WHO) criteria for osteoporosis at one or more sites (T-score -2.5 or below). In untreated patients, the risk of osteoporotic fracture increases approximately two-fold for each 1.0 SD decrease in T-score. Low bone density is not the only risk factor for fracture; also consider factors such as patient's age, frailty or poor health, risk of falling, risk of injury, previous osteoporotic fracture, family history of osteoporosis, cigarette smoking, low body weight, etc. Not everyone with low bone mineral density has osteoporosis; osteomalacia and other metabolic bone disorders should also be considered. Patients who have osteoporosis should be evaluated for specific diseases and conditions (secondary causes) that may cause or contribute to bone loss. The [place] [employer] Endocrinologists (AACE) and National Osteoporosis Foundation (NOF) recommend pharmacologic intervention for all postmenopausal women whose T-score is in this range. The patient should follow a healthful lifestyle (good nutrition with adequate calcium and vitamin D, and appropriate weight-bearing exercise). Follow-Up: Consider a repeat BMD and Vertebral Fracture Assessment (VFA) exam in 2 years or sooner if medically necessary, to reassess this patient's status. Reported by: TREMAINE on 12/23/2024 2:21:00 PM. Reviewed, dictated and finalized at location A.
== END 2024-12-22 11:42 | disposition home or self-care (01) ==
PROVIDERS: PCP Family Medicine; Visit Provider Student in an Organized Health Care Education/Training Program
DX: M81.0 Age-related osteoporosis without current pathological fracture (principal)
CPT/HCPCS: 77080